=== PATIENT | female | born 1995 | race Caucasian/White ===

== ENCOUNTER 2019-08-15 23:02 | Emergency (ER) | payer OTHER, SELFPAY ==
--- OUTSIDE RECORDS SUMMARY | 2019-08-15 23:04 | XMS REPORT | Summary of Care ---
:1995 Author Organization [facility] - [facility] Address [address] [place] [id number] Care Team Providers Name Role Phone Pcp, Patient Does Not Have A Primary Care Provider Reason for Visit Reason Comments ROUTINE VISIT Diabetes Auth/Cert Status Reason Specialty Diagnoses / Procedures Referred By Contact Referred To Contact Phlebotomy Diagnoses Supervision of high risk in first trimester Adc Pob Lab Draw Procedures [facility] Professional Office [address] , [address] [place] [address] Encounter Details Date Type Department Care Team Description 08/03/2019 Routine [facility] Women's PérezFarnaz MD Supervision of high risk in first trimester (Primary Dx); Visit Healthcare- [address] [place] [address] Type 1 diabetes mellitus without complication [place] [address] [place] [address] [address] [place], [place] [phone] Allergies No Known Allergiesdocumented as of this encounter (statuses as of 08/05/2019) Medications Medication Sig Dispensed Refills Start Date End Date Status INSULIN ASPART inject 0 Active (NOVOLOG SC) under the skin. Sliding scale Insulin Glargine inject 35 0 Active (LANTUS SOLOSTAR) Units under 100 unit/mL (3 mL) the skin injection daily. furosemide 20 mg Take 20 mg 0 Discontinued tablet by mouth as 0 (Patient needed. Reported) METRONIDAZOLE ORAL Take by 0 Discontinued mouth. 0 (Patient Reported) documented as of this encounter (statuses as of 08/05/2019) Active Problems Problem Noted Date Supervision of high risk in first trimester 07/29/2019 12 weeks gestation of 07/29/2019 Type 1 diabetes mellitus without complication 01/19/2017 LFTs abnormal 01/19/2017 Estimated Date of Delivery Comments Yes 02/10/2020 Based on Ultrasound documented as of this encounter (statuses as of 08/05/2019) Immunizations Name Administration Dates Next Due Influenza Virus Vaccine 04/29/2019 documented as of this encounter Social History Tobacco Use Types Packs/Day Years Used Date Never Smoker Smokeless Tobacco: Never Used Alcohol Use Drinks/Week oz/Week Comments Not Currently Estimated Date of Delivery Comments Yes 02/10/2020 Based on Ultrasound Sex Assigned at Date Recorded Not on file Job Start Date Occupation Industry Not on file Not on file Not on file Travel History Travel Start Travel End No recent travel history available. documented as of this encounter Last Filed Vital Signs Vital Sign Reading Time Taken Comments Blood Pressure 121/75 08/03/2019 10:14 AM HISTOTECHNICIAN Pulse 90 08/03/2019 10:14 AM HISTOTECHNICIAN Temperature 36.6 C (97.9 F) 08/03/2019 10:14 AM HISTOTECHNICIAN Respiratory Rate 18 08/03/2019 10:14 AM HISTOTECHNICIAN Oxygen Saturation - - Inhaled Oxygen Concentration - - Weight 73.2 kg (161 lb 6.4 oz) 08/03/2019 10:14 AM HISTOTECHNICIAN Height 175.3 cm (5' 9") 08/03/2019 10:14 AM HISTOTECHNICIAN Body Mass Index 23.83 08/03/2019 10:14 AM HISTOTECHNICIAN documented in this encounter Patient Instructions Patient InstructionsBebeto Carroll - 08/03/2019 9:45 AM CST Video [employer] Common Changes During Certain changes and discomforts occur during and are perfectly normal. Some of these changes include backache, frequent urination, and constipation. This video describes typical changes, how to safely relieve your discomfort, and what circumstances require a visit to your doctor. To watch the video: Scan the QR code Using your mobile device, scan the following code: OR Go to the website: www.[employer] Enter the prescription code: KWX The [employer]. [address] [place], [place] [id number]. All rights reserved. This information is not intended as a substitute for professional medical care. Always follow your healthcare professional's instructions. Comfort Tips During Talk with yourhealthcare provider before using pain-relieving medicine at any time during your . First trimester tips Nausea Get up slowly. Eat a few unsalted crackers before you get out of bed. Avoid smells that bother you. Eat smallbland low fat, light high-protein meals at frequent intervals. Sip on water, weaktea, or clear soft drinks, like haley mahendra.Eat ice chips. Fatigue Take catnaps when you can. Get regular exercise. Accept help from others. Practice good sleep habits, like going to bed and getting up at the same time each day. Use your bed only for sleep and sex. Mood swings Talk about your feelings with others, including other mothers. Limit sugar, chocolate, and caffeine. Eat a healthy diet. Dont skip meals. Get regular exercise. Headaches Get fresh air and exercise. Relax and get enough rest. Check with your healthcare provider before taking any pain medicines. Second trimester tips Here are some suggestions to help you cope: To limit ankle swelling, sit with your feet raised or wear support hose. If you have pain in your groin and stomach(round ligament pain), avoid sudden twisting movements. For leg cramps, flexing your foot often brings immediate relief. You also may try massaging your calf in long, downward strokes, or stretching your legs before going to bed. Get enough exercise and wear shoes with flexible soles. Third trimester tips Reducing heartburn Eat small, light meals throughout the day rather than 3 large ones. Sleep with your upper body raised 6 inches. Dont lie down until 2 hours after you eat. Don't eat greasy, fried, or spicy foods. Avoid citrus fruits and juices. Treating constipation Eat foods high in fiber (whole-grain foods, fresh fruit and vegetables). Drink plenty of water. Get regular exercise. Discuss other medicines (like docusate and psyllium) with your healthcare provider. Taking care of your breasts Avoid using harsh soaps or alcohol, which can cause excessive dryness. Wear nursing bras. They provide more support than regular bras and can be used after ifyou breastfeed. Getting a good nights sleep Take a warm shower before bed. Sleep on a firm mattress. Lie on your side with 1 leg crossed over the other. Use pillows to support arms, legs, and belly. hereO last reviewed this educational content on 03/29/201719999617-3946 The [employer], [employer]. [address] [place] [address], [place] [address]. All rights reserved. This information is not intended as a substitute for professional medical care. Always follow your healthcare professional's instructions. Adapting to : Second Trimester Keep up the healthy habits you started in your first trimester. You might be a little more tired than normal. So plan your day wisely. Look at the tips below and choose the ones that suit your lifestyle. If you have any questions, check with your healthcare provider. If you work If you can, adjust your work with your employer to fit your needs. Try these tips: If you stand for long periods, find ways to do some tasks while sitting. Also , try to stand with 1 foot resting on a low stool or ledge. Shift your weight from foot to foot often. Wear low-heeled shoes. If you sit, keep your knees level with your hips. Rest your feet on a firm surface. Sit tall withsupport for your low back. If you work long hours, ask about adjusting your schedule. Try taking shorter breaks more often. When you travel The second trimester may be the best time for any travel. Talk to your healthcare provider about anyspecial plans you may need to make. Always: Wear a seat belt. Fasten the lap part under your belly. Wear the shoulder part also. Take breaks often during long trips by car or plane. Move around to stretch your legs. Drink plenty of fluids on flights. The air in plane cabins is very dry. Avoid hot climates or high altitudes if you are not used to them. Avoid places where the food and water might make you sick. Make sure you are up-to-date on all immunizations, including the flu vaccine. This is especially important when traveling overseas. Taking time to relax Find time to rest and relax at work or at home: Take short time-outs daily. Do relaxation exercises. Breathe deeply during stressful times. Try not to take on too much. Plan tasks for times when you have the most energy. Take naps when you can. Or just sit and relax. After week 16, avoid lying on your back for more than a few minutes. Instead , lie on your side. Switch sides often. Continuing as lovers Unless your healthcare provider tells you otherwise, there is no reason to stop having sex now. Blood supply increases to the pelvic area in the second trimester. Because of this, sex might be more enjoyable. Try different positions and see whats best. Also, talk to your partner about any changes in desire. Spotting may happen after sex. Be sure to let your healthcare provider know if there is heavy bleeding. Keeping your environment safe You can still clean house and use scented products. Just take some simple precautions: Wear gloves when using cleaning fluids. Open windows to let in fresh air. Use a fan if you paint. Avoid secondhand smoke. Dont breathe fumes from nail french, hair spray, cleansers, or other chemicals. hereO last reviewed this educational content on 06/29/201719997306-1017 The [employer]. [address] [place] [address]. All rights reserved. This information is not intended as a substitute for professional medical care. Always follow your healthcare professional's instructions. : Your Second Trimester Changes Each day, you and your baby are changing and growing together. Heres a quick look at whats happening to both of you. How you are changing Even when you dont notice it, your body is adapting to meet the needs of your growing baby. The changes in your body might also affect your moods. Your body Your uterus expands as baby grows. As the weeks go by, you will feel more pressure on your bladder, stomach, and other organs. You may notice some skin color changes on your forehead, nose, or cheeks. Freckles may darken, and moles may grow. You may notice a darker line on your abdomen between your belly button and pubic bone in the midline. Your moods The second trimester is often easier than the first. Still, be prepared for mood swings. These are due to the increase in hormones (chemicals that affect the way organs work) produced by your body. These mood swings are a normal part of . How your baby is growing Month 4 Babys heartbeat may be heard with a Doppler (hand-held ultrasound device) by 9 to 10 weeks.Eyebrows, eyelashes, and fingernails begin to form. Month 5 You may feel your baby move. After a growth spurt, your baby nears 10 inches. Month 6 Babys fingerprints have formed. Your baby weighs about 1to 2 pounds and is about 12 inches long. hereO last reviewed this educational content on 06/29/201719997454-4578 The [employer]. [address] [place] [address]. All rights reserved. This information is not intended as a substitute for professional medical care. Always follow your healthcare professional's instructions. OTECHNICIAN documented in this encounter Progress Notes Farnaz Pérez MD - 08/03/2019 9:45 AM CST Chief complaint: Chief Complaint Patient presents with ROUTINE VISIT Diabetes HPI Denies vaginal bleeding or cramping. Histories OB History Para Term AB Living 1 SAB TAB Ectopic Multiple Live Births # Outcome Date GA Lbr Harinder/2nd Weight Sex Delivery Anes PTL Lv 1 Current Past Medical History: Diagnosis Date Diabetes mellitus type 1 diagnosed at 9 years old Elevated LFTs Family History Problem Relation Age of Onset No Significant Medical Problems Mother Family Status Relation Name Status Fa Other unknown Mo Alive History reviewed. No pertinent surgical history. Social History Socioeconomic History Marital status: Single Spouse name: w Number of children: Not on file Years of education: Not on file Highest education level: Not on file Occupational History Not on file Social Needs Financial resource strain: Not on file Food insecurity: Worry: Not on file Inability: Not on file Transportation needs: Medical: Not on file Non-medical: Not on file Tobacco Use Smoking status: Never Smoker Smokeless tobacco: Never Used Substance and Sexual Activity Alcohol use: Not Currently Drug use: Never Sexual activity: Yes Partners: Male control/protection: None Lifestyle Physical activity: Days per week: Not on file Minutes per session: Not on file Stress: Not on file Relationships Social connections: Talks on phone: Not on file Gets together: Not on file Attends congregational service: Not on file Active member of club or organization: Not on file Attends meetings of clubs or organizations: Not on file Relationship status: Not on file Intimate partner violence: Fear of current or ex partner: Not on file Emotionally abused: Not on file Physically abused: Not on file Forced sexual activity: Not on file Other Topics Concern Not on file Social History Narrative Denies physical and sexual abuse. Social History Substance and Sexual Activity Sexual Activity Yes Partners: Male control/protection: None Labs No new labs Radiology No new radiology. Allergies Sri has No Known Allergies. Medications Sri has a current medication list which includes the following prescription (s): insulin aspart and insulin glargine. Review of Systems Constitutional: Negative for chills, fatigue and fever. HENT: Negative for congestion, rhinorrhea, sneezing and sore throat. Eyes: Negative for photophobia and visual disturbance. Respiratory: Negative for cough, chest tightness, shortness of breath and wheezing. Cardiovascular: Negative for chest pain and palpitations. Gastrointestinal: Negative for abdominal distention, abdominal pain, constipation, diarrhea, nausea and vomiting. Genitourinary: Negative for dysuria, urgency, frequency, vaginal bleeding and vaginal discharge. Skin: Negative for rash. Neurological: Negative for syncope and headaches. Hematological: Does not bruise/bleed easily. BP 121/75 (BP Location: Left arm, Patient Position: Sitting, BP CUFF SIZE: Adult Medium) | Pulse 90 | Temp 36.6 C (97.9 F) | Resp 18 | Ht 5' 9" ( 1.753 m) | Wt 161 lb 6.4 oz (73.2 kg) | LMP 03/25/2019 | BMI 23.83 kg/m Pregravid BMI: 22.7 Physical Exam Vitals reviewed. Constitutional: She is oriented to person, place, and time. Her body habitus is normal. Cardiovascular: Regular rate and rhythm. Pulmonary/Chest: Normal inspiratory effort. Abdominal: Abdomen is soft. No tenderness present. No hernia palpated or inspected. Neuro/Psychiatric: She has a normal mood and affect. She is oriented to person, place, and time. Skin: Skin normal. No rash present. Assessment/Plan See OB Summary Return to clinic in 3 weeks. Reviewed patient instructions and provided printed copy. Activity restrictions: As tolerated at 13w0d This visit did not involve counseling and coordination that comprised more than 50% of the visit time. Farnaz Pérez MD 08/05/2019 9:40 AM documented in this encounter Plan of Treatment Date Type Specialty Care Team Description 08/08/2019 Office Visit Endocrinology Diabetes & Maryellen Marie, Metabolism [address] [facility] [address] [place] [address] [phone] 08/17/2019 Office Visit Endocrinology Diabetes & Edward Erwin MD Metabolism [address] [place] [address] [phone] 08/17/2019 Routine Obstetrics & Gynecology Farnaz Pérez MD Visit [address] [place] [address] [address] [place], [place] [id number] Health Maintenance Due Date Last Done Comments HgA1C 12/05/1995 VARICELLA VACCINES (1 of 2 - 12/05/1995 2-dose childhood series) PNEUMOCOCCAL 0-64 YEARS COMBINED 2000 SERIES (1 of 1 - PPSV23) EYE EXAM 2004 LDL-C 2004 URINE MICROALBUMIN 2004 DTaP,Tdap,and Td Vaccines (1 - 2005 Tdap) HPV VACCINES (1 - Female 2-dose 2005 series) CHLAMYDIA SCREENING 2010 FOOT EXAM 2012 PAP SMEAR 12/05/2015 CREATININE (SERUM) 01/19/2018 01/19/2017 INFLUENZA VACCINE Completed 04/29/2019, 04/14/2011, 05/13/2010, Additional history exists documented as of this encounter Procedures Procedure Name Priority Date/Time Associated Diagnosis Comments POCT URINALYSIS W/O Routine 08/03/2019 Supervision of high Results for this SPECIFIC GRAVITY risk in first procedure are in the trimester results section. documented in this encounter Results POCT URINALYSIS W/O SPECIFIC GRAVITY (08/03/2019) POCT PH U n/a 5 - 8 mg/dl POCT U LEUK EST n/a Negative - Negative POCT U NIT n/a Negative - Negative POCT U PROT neg Negative - Negative POCT U GLU neg Negative - Negative POCT U KETONE n/a Negative - Negative POCT U BLD n/a Negative - Negative Specimen Urine - URINE, CLEAN CATCH documented in this encounter Visit Diagnoses Diagnosis Supervision of high risk in first trimester - Primary Unspecified high-risk Type 1 diabetes mellitus without complication Type I (juvenile type) diabetes mellitus without mention of complication, not stated as uncontrolled documented in this encounter Insurance Payer Benefit Plan / Subscriber ID Effective Dates Phone Address Type Group [facility] xxxxxxxxx 2019-Present Medicaid HEALTH PLAN - HEALTH MANAGED MEDICAID documented as of this encounter
--- OUTSIDE RECORDS SUMMARY | 2019-08-15 23:04 | XMS REPORT | Summary of Care ---
:1995 Author Organization [facility] - Health Address [address] [place] [address] Care Team Providers Name Role Phone Pcp, Patient Does Not Have A Primary Care Provider Encounter Details Date Type Department Care Team Description 07/27/2019 Orders Only [facility] Doctor Unassigned, No [address] [facility] [place] [address] [address] [place] [address] Allergies No Known Allergiesdocumented as of this encounter (statuses as of 07/27/2019) Medications Medication Sig Dispensed Refills Start Date End Date Status INSULIN ASPART inject under the 0 Active (NOVOLOG SC) skin. Sliding scale Insulin Glargine inject 35 Units 0 Active (LANTUS SOLOSTAR) 100 under the skin unit/mL (3 mL) daily. injection furosemide 20 mg Take 20 mg by 0 Active tablet mouth as needed. documented as of this encounter (statuses as of 07/27/2019) Active Problems Problem Noted Date Type 1 diabetes mellitus without complication 01/19/2017 LFTs abnormal 01/19/2017 documented as of this encounter (statuses as of 07/27/2019) Social History Tobacco Use Types Packs/Day Years Used Date Never Smoker Sex Assigned at Date Recorded Not on file Job Start Date Occupation Industry Not on file Not on file Not on file Travel History Travel Start Travel End No recent travel history available. documented as of this encounter Last Filed Vital Signs Not on filedocumented in this encounter Plan of Treatment Date Type Specialty Care Team Description 07/27/2019 Initial Obstetrics & Pérez, Farnaz Hall MD Visit Gynecology [address] [place] [address] 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
--- OUTSIDE RECORDS SUMMARY | 2019-08-15 23:04 | XMS REPORT | Summary of Care ---
:1995 Author Organization [facility] - [facility] Address [address] [place] [address] Care Team Providers Name Role Phone Pcp, Patient Does Not Have A Primary Care Provider Encounter Details Date Type Department Care Team Description 08/02/2019 Letter (Out) [facility] Women's PérezFarnaz MD [address] [facility], Suite [facility] [address] [place] [address] [place] [address] Allergies No Known Allergiesdocumented as of this encounter (statuses as of 08/02/2019) Medications Medication Sig Dispensed Refills Start Date End Date Status INSULIN ASPART (NOVOLOG inject under the 0 Active SC) skin. Sliding scale Insulin Glargine inject 35 Units 0 Active (LANTUS SOLOSTAR) 100 under the skin unit/mL (3 mL) daily. injection furosemide 20 mg tablet Take 20 mg by 0 Active mouth as needed. METRONIDAZOLE ORAL Take by mouth. 0 Active documented as of this encounter (statuses as of 08/02/2019) Active Problems Problem Noted Date Supervision of high risk in first trimester 07/29/2019 12 weeks gestation of 07/29/2019 Type 1 diabetes mellitus without complication 01/19/2017 LFTs abnormal 01/19/2017 Estimated Date of Delivery Comments Yes 02/10/2020 Based on Ultrasound documented as of this encounter (statuses as of 08/02/2019) Immunizations Name Administration Dates Next Due Influenza [...] Treatment Date Type Specialty Care Team Description 08/03/2019 Routine Obstetrics & Pérez, Farnaz Hall MD Visit Gynecology [address] [place] [address] [place] [address] [phone] Health Maintenance Due Date Last Done Comments [...] history exists documented as of this encounter Results Not on filedocumented in this encounter Insurance Payer Benefit Plan / Subscriber ID Effective Dates Phone Address Type Group [facility] xxxxxxxxx 2019-Present Medicaid HEALTH PLAN - HEALTH MANAGED MEDICAID documented as of this encounter
--- OUTSIDE RECORDS SUMMARY | 2019-08-15 23:05 | XMS REPORT | Summary of Care ---
:1995 Author Organization [facility] Address [address] [place] [address] Care Team Providers Name Role Phone Pcp, Patient Does Not Have A Primary Care Provider Encounter Details Date Type Department Care Team Description 08/15/[address] [facility] Edward Erwin MD Hypoglycemia (Primary Msg Endocrinology- [address]x) [facility] Professional Office [address] [phone] Dr. Kurtz [address] [place], [place] (Fax) [phone] Allergies No Known Allergiesdocumented as of this encounter (statuses as of 08/15/2019) Medications Medication Sig Dispensed Refills Start Date End Date Status INSULIN ASPART inject under the 0 Active (NOVOLOG SC) skin. Sliding scale Insulin Glargine inject 35 Units 0 Active (LANTUS SOLOSTAR) under the skin 100 unit/mL (3 mL) daily. injection glucagon (GLUCAGON Inject 1 mg 1 mg 1 08/15/2019 Active EMERGENCY KIT, intravenously as HUMAN,) 1 mg needed injectionIndications (hypoglycemia). : Hypoglycemia documented as of this encounter (statuses as of 08/15/2019) Active Problems Problem Noted Date Supervision of high risk in first trimester 07/29/2019 12 weeks gestation of 07/29/2019 Type 1 diabetes mellitus without complication 01/19/2017 LFTs abnormal 01/19/2017 Estimated Date of Delivery Comments Yes 02/10/2020 Based on Ultrasound documented as of this encounter (statuses as of 08/15/2019) Immunizations Name Administration Dates Next Due HEPATITIS A 11/01/2008 HPV 01/25/2010, 11/01/2008 Influenza Virus Vaccine 04/29/2019, 04/14/2011, 05/13/2010, 06/15/2009, 03/14/2009, 04/23/2007 Meningococcal Polysaccharide (groups 12/10/2012, 11/01/2008 A, C, Y and W-135) conjugate vaccine (MCV4P) Tdap 11/01/2008 Varicella (varivax)(chicken pox) 11/01/2008 documented as of this encounter Social History [...] Treatment Date Type Specialty Care Team Description 08/17/2019 Office Visit Endocrinology Diabetes & Edward Erwin MD Metabolism [address] [place] [address] [phone] 08/22/2019 Routine Obstetrics & Gynecology Farnaz Pérez MD Visit [address] [place] [address] DR[address] Evans [address] [place] [address] [phone] Health Maintenance Due Date Last Done Comments HgA1C 12/05/1995 PNEUMOCOCCAL 0-64 YEARS COMBINED 2000 SERIES (1 of 1 - PPSV23) EYE EXAM 2004 LDL-C 2004 URINE MICROALBUMIN 2004 VARICELLA VACCINES (2 of 2 - 13+ 11/29/2008 11/01/2008 2-dose series) CHLAMYDIA SCREENING 2010 FOOT EXAM 2012 PAP SMEAR 12/05/2015 CREATININE (SERUM) 01/19/2018 01/19/2017 DTaP,Tdap,and Td Vaccines (2 - Td) 11/01/2018 11/01/2008 HPV VACCINES Completed 01/25/2010, 11/01/2008 INFLUENZA VACCINE Completed 04/29/2019, 04/14/2011, 05/13/2010, Additional history exists documented as of this encounter Results Not on filedocumented in this encounter Visit Diagnoses Diagnosis Hypoglycemia - Primary Hypoglycemia, unspecified documented in this encounter Insurance Payer Benefit Plan / Subscriber ID Effective Dates Phone Address Type Group [facility] xxxxxxxxx 2019-Present Medicaid HEALTH PLAN - HEALTH MANAGED MEDICAID documented as of this encounter
--- OUTSIDE RECORDS SUMMARY | 2019-08-15 23:05 | XMS REPORT | Summary of Care ---
:1995 Author Organization [facility] Address [address] [place] [address] Care Team Providers Name Role Phone Pcp, Patient Does Not Have A Primary Care Provider Encounter Details Date Type Department Care Team Description 08/15/2019 Patient Secure Msg [facility] Edward Erwin MD Endocrinology- [address] Professional [address] [address] [address] [place] [address] [phone] Allergies No Known Allergiesdocumented as of this encounter (statuses as of 08/15/2019) Medications Medication Sig Dispensed Refills Start Date End Date Status INSULIN ASPART inject under the 0 Active (NOVOLOG SC) skin. Sliding scale Insulin Glargine inject 35 Units 0 Active (LANTUS SOLOSTAR) 100 under the skin unit/mL (3 mL) daily. injection documented as of this encounter (statuses as [...] Endocrinology Diabetes & Edward Erwin MD Metabolism [facility] [place] [address] [phone] 08/22/2019 Routine Obstetrics & Gynecology Farnaz Pérez MD Visit [address] [place] [address] [place] [address] [phone] Health Maintenance Due Date Last Done Comments [...] ID Effective Dates Phone Address Type Group [place] [facility] [place] [facility] xxxxxxxxx 2019-Present Medicaid HEALTH PLAN - HEALTH MANAGED MEDICAID documented as of this encounter
--- OUTSIDE RECORDS SUMMARY | 2019-08-15 23:05 | XMS REPORT | Summary of Care ---
:1995 Author Organization [facility] Address [address] [place] [address] Care Team Providers Name Role Phone Pcp, Patient Does Not Have A Primary Care Provider Encounter Details Date Type Department Care Team Description 08/15/2019 Patient Secure Msg [facility] Edward Erwin MD Endocrinology- [address] Professional [address] [address] [address] [place] [address] [phone] Allergies No Known Allergiesdocumented as of this [...] Endocrinology Diabetes & Edward Erwin MD Metabolism [facility] [place] [address] [phone] 08/22/2019 Routine Obstetrics & Gynecology Farnaz Pérez MD Visit [address] [place] [address] [place] [address] [phone] Health Maintenance Due Date Last Done Comments [...] ID Effective Dates Phone Address Type Group [place] [facility] [place] [facility] xxxxxxxxx 2019-Present Medicaid HEALTH PLAN - HEALTH MANAGED MEDICAID documented as of this encounter
--- OUTSIDE RECORDS SUMMARY | 2019-08-15 23:05 | XMS REPORT ---
:1995 Author Organization [facility] Address [address] [place] [address] Dr. Martinez [address] [place] [address] Care Team Providers Name Role Phone Unavailable Unavailable Unavailable Problems This patient has no known problems. Allergies, Adverse Reactions, Alerts This patient has no known allergies or adverse reactions. Medications This patient has no known medications.
[2019-08-15] MEDS ORDERED: D50W 25 GM/50 ML SYRINGE/VIAL IV ONE (23:49)
[2019-08-15 23:52] LABS: Urine Blood NEGATIVE (NEG); Urine Glucose NEGATIVE (NEG); Urine Protein NEGATIVE (NEG); Urine Specific Gravity <1.005 (1.005-1.030)
[2019-08-15 23:53] LABS: Absolute Lymphocytes (CBC) 1.8 K/uL (0.7-4.9); Basophils % 0.4 % (0-1.3); Hematocrit 39.9 % (36.0-45.0); Lymphocytes % 13.9 % (15.3-44.8); MPV 7.8 fL (7.6-11.3); RBC Red Blood Cell Count 4.68 M/uL (3.86-4.86)
[2019-08-16 00:02] LABS: Urine Bacteria <20 /HPF (<20); Urine Culture Reflex Order NOT NEEDED; Urine RBC <5 /HPF (NONE SEEN)
[2019-08-16 00:12] LABS: ALT/SGPT 21 U/L (12-78); AST/SGOT 28 U/L (15-37); Albumin 3.3 g/dL (3.4-5.0); Alkaline Phosphatase 54 U/L (45-117); BUN Blood Urea Nitrogen 11 mg/dL (7-18); Bicarbonate 25 mmol/L (21-32); Bilirubin Total 0.3 mg/dL (0.2-1.0); Glucose Level 60 mg/dL (74-106); Potassium 3.5 mmol/L (3.5-5.1); Protein, Total 7.3 g/dL (6.4-8.2); Sodium Level 139 mmol/L (136-145)
[2019-08-16] MEDS ORDERED: CEFTRIAXONE/SWI 1gm 1 GM/10 ML SYR ONE (01:39)
--- NOTE | 2019-08-16 01:55 | ER ---
Nurse's Notes [facility] Name: Sri Rosales Age: 23 yrs Sex: Female : 1995 Arrival Date: 08/15/2019 Time: 23:08 Bed 15 Private MD: Diagnosis: Hypoglycemia, unspecified;Urinary tract infection, site not specified Presentation: 08/15 23:08 Presenting complaint: EMS states: PATIENT IS TYPE 1 DM. AND SHE IS ALSO 14 WEEKS rv . TODAY HER SUGAR DROPPED TO 30s. WE GAVE HER 150ML OF D10. WENT UP AND DOWN AGAIN. GAVE HER 1 GLUCOSE. LATEST BLOOD SUGAR IS 89. INITIALLY SHE IS CONFUSED, SHE FELT BETTER NOW. Transition of care: patient was not received from another setting of care. Onset of symptoms was August 15, 2019 at 22:00. Risk Assessment: Do you want to hurt yourself or someone else? Patient reports no desire to harm self or others. Initial Sepsis Screen: Does the patient meet any 2 criteria? No. Patient's initial sepsis screen is negative. Does the patient have a suspected source of infection? No. Patient's initial sepsis screen is negative. Care prior to arrival: None. Medication(s) given: GLUCOSE. 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 - Coronavirus screen:: The patient HAS traveled to [place] in the past 14 days. The patient does NOT have a fever and/or cough. Proceed with normal triage procedures. The patient has NOT had contact with known/suspected case of Coronavirus? Proceed with normal triage procedures. - Social history:: Smoking status: Patient denies any tobacco usage or history of. - Ebola Screening: : No symptoms or risks identified at this time. Screenin:14 Abuse screen: Denies threats or abuse. Denies injuries from another. Nutritional rv screening: No deficits noted. Tuberculosis screening: No symptoms or risk factors identified. Fall Risk None identified. Assessment: 23:14 General: Appears in no apparent distress. comfortable, Behavior is calm, cooperative. rv Pain: Denies pain. Neuro: Level of Consciousness is awake, alert, obeys commands, Oriented to person, place, time, situation. Cardiovascular: Patient's skin is warm and dry. Respiratory: Airway is patent. GI: No signs and/or symptoms were reported involving the gastrointestinal system. : No signs and/or symptoms were reported regarding the genitourinary system. EENT: No signs and/or symptoms were reported regarding the EENT system. Derm: Skin is intact. 08/16 02:05 Reassessment: Patient appears in no apparent distress at this time. Patient and/or rv family updated on plan of care and expected duration. Pain level reassessed. Patient is alert, oriented x 3, equal unlabored respirations, skin warm/dry/pink. patient was given dextrose 50% and encouraged to eat. after monitoring sugar every 30 minutes for three times, sugar is stable and not dropping down. advised to manage her sugar and ff up with her electromatic typist. Vital Signs: 08/15 23:12 BP 131 / 91; Pulse 94; Resp 19; Temp 98; Pulse Ox 100% ; Weight 72.57 kg; Height 5 ft. rv 9 in. (175.26 cm); Pain 0/10; 08/16 00:04 BP 124 / 78; Pulse 91; Resp 18; Pulse Ox 100% on R/A; rv 01:00 BP 118 / 75; Pulse 89; Resp 17; Pulse Ox 100% on R/A; rv 02:00 BP 117 / 78; Pulse 92; Resp 18; Temp 98.2(O); Pulse Ox 100% ; rv 08/15 23:12 Body Mass Index 23.63 (72.57 kg, 175.26 cm) rv Vitals: 00:04 Heart Tones 160s. rv ED Course: 08/15 23:08 Patient arrived in ED. rv 23:12 Triage completed. rv 23:14 Arm band placed on Patient placed in the treatment room, on a stretcher, Patient rv notified of wait time. 23:15 Patient has correct armband on for positive identification. Pulse ox on. NIBP on. rv 23:18 Jacoby, Norman, RN is Primary Nurse. rv 23:18 Inserted saline lock: 20 gauge in left antecubital area, using aseptic technique. Blood rv collected. 23:20 Spencer Amato NP is PHCP. pm1 23:20 Cosme Zamora MD is Attending Physician. pm1 02 02:04 No provider procedures requiring assistance completed. IV discontinued, intact, rv bleeding controlled, No redness/swelling at site. Pressure dressing applied. Administered Medications: 08/15 23:51 Drug: D50W 50 ml Route: IVP; Site: left antecubital; rv 02 02:05 Follow up: Response: No adverse reaction; Blood sugar is elevated rv 01:38 Drug: Rocephin 1 grams Route: IV; Rate: calculated rate; Site: left antecubital; rv 02:05 Follow up: Response: No adverse reaction; IV Status: Completed infusion rv Outcome: 01:55 Discharge ordered by MD. pm1 02:07 Discharged to home ambulatory, with family. rv 02:07 Condition: good 02:07 Discharge instructions given to patient, Instructed on discharge instructions, follow up and referral plans. medication usage, Demonstrated understanding of instructions, follow-up care, medications, Prescriptions given X 1. 02:07 Patient left the ED. rv Signatures: Spencer Amato NP BIOLOGY INTERN pm1 Norman Dozier RN RN rv Corrections: (The following items were deleted from the chart) 08/15 23:18 23:16 Inserted saline lock: 20 gauge in right antecubital area, using aseptic rv technique. rv 23:51 23:18 Maintain EMS IV. Dressing intact. Good blood return noted. Site clean \T\ dry. rv Gauge \T\ site: 20G RIGHT AC. rv
--- NOTE | 2019-08-16 01:56 | EDPHYS ---
Physician Documentation [facility] Name: Sri Rosales Age: 23 yrs Sex: Female : 1995 Arrival Date: 08/15/2019 Time: 23:08 Bed 15 Private MD: ED Physician Cosme Zamora HPI: 08/16 01:36 This 23 yrs old Female presents to ER via EMS with complaints of Hypoglycemia.pm1 01:36 The patient or guardian reports hypoglycemia, that was potentially precipitated by pm1 Insulin at 1600 for glucose in the 300 range. Onset: The symptoms/episode began/occurred just prior to arrival. Associated signs and symptoms: Pertinent negatives: nausea, seizure activity, vomiting. Current symptoms: In the emergency department the patient's symptoms have improved. The patient has experienced similar episodes in the past, a few times. Patient is 14 weeks and is type 1 diabetic. Patient is on a sliding scale for regular insulin and takes long acting before bed time. Patient has not taken her long acting today. Patient at a cracker after taking her sliding scale dose of insulin for 300 blood glucose level. 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 - Coronavirus screen:: The patient HAS traveled to [place] in the past 14 days. The patient does NOT have a fever and/or cough. Proceed with normal triage procedures. The patient has NOT had contact with known/suspected case of Coronavirus? Proceed with normal triage procedures. - Social history:: Smoking status: Patient denies any tobacco usage or history of. - Ebola Screening: : No symptoms or risks identified at this time. ROS: 08/16 02:11 Constitutional: Negative for fever, chills, and weight loss, Cardiovascular: Negative pm1 for chest pain, palpitations, and edema, Respiratory: Negative for shortness of breath, cough, wheezing, and pleuritic chest pain, Abdomen/GI: Negative for abdominal pain, nausea, vomiting, diarrhea, and constipation, Back: Negative for injury and pain, : Negative for injury, bleeding, discharge, and swelling, MS/Extremity: Negative for injury and deformity, Skin: Negative for injury, rash, and discoloration, Neuro: Negative for headache, weakness, numbness, tingling, and seizure. Exam: 02:11 Constitutional: This is a well developed, well nourished patient who is awake, alert, pm1 and in no acute distress. Head/Face: Normocephalic, atraumatic. Neck: Trachea midline, no thyromegaly or masses palpated, and no cervical lymphadenopathy. Supple, full range of motion without nuchal rigidity, or vertebral point tenderness. No Meningismus. Chest/axilla: Normal chest wall appearance and motion. Nontender with no deformity. No lesions are appreciated. Cardiovascular: Regular rate and rhythm with a normal S1 and S2. No gallops, murmurs, or rubs. Normal PMI, no JVD. No pulse deficits. Respiratory: Lungs have equal breath sounds bilaterally, clear to auscultation and percussion. No rales, rhonchi or wheezes noted. No increased work of breathing, no retractions or nasal flaring. Back: No spinal tenderness. No costovertebral tenderness. Full range of motion. Skin: Warm, dry with normal turgor. Normal color with no rashes, no lesions, and no evidence of cellulitis. 02:11 MS/ Extremity: Pulses equal, no cyanosis. Neurovascular intact. Full, normal range of motion. 02:11 Abdomen/GI: Inspection: gravid appearance, is noted, Bowel sounds: normal, Palpation: abdomen is soft and non-tender, in all quadrants. 02:11 Neuro: Orientation: is normal, Motor: is normal, moves all fours. Vital Signs: 08/15 23:12 BP 131 / 91; Pulse 94; Resp 19; Temp 98; Pulse Ox 100% ; Weight 72.57 kg; Height 5 ft. rv 9 in. (175.26 cm); Pain 0/10; 08/16 00:04 BP 124 / 78; Pulse 91; Resp 18; Pulse Ox 100% on R/A; rv 01:00 BP 118 / 75; Pulse 89; Resp 17; Pulse Ox 100% on R/A; rv 02:00 BP 117 / 78; Pulse 92; Resp 18; Temp 98.2(O); Pulse Ox 100% ; rv 08/15 23:12 Body Mass Index 23.63 (72.57 kg, 175.26 cm) rv MDM: 08/15 23:20 Patient medically screened. pm1 08/16 01:53 Data reviewed: vital signs. Data interpreted: Pulse oximetry: on room air is 100 %. pm1 Interpretation: normal. Counseling: I had a detailed discussion with the patient and/or guardian regarding: the historical points, exam findings, and any diagnostic results supporting the discharge/admit diagnosis, lab results, the need for outpatient follow up, to return to the emergency department if symptoms worsen or persist or if there are any questions or concerns that arise at home. 08/15 23:21 Order name: CBC with Diff; Complete Time: 00:30 pm1 08/15 23:21 Order name: CMP; Complete Time: 00:30 pm1 08/15 23:27 Order name: Urine Microscopic Only; Complete Time: 00:30 pm1 08/15 23:48 Order name: Urine Dipstick--Ancillary (enter results); Complete Time: 00:30 mt 08/15 23:48 Order name: Urine --Ancillary (enter results); Complete Time: 00:30 mt 08/15 23:52 Order name: Glucose, Ancillary Testing; Complete Time: 00:30 EDMS 08/15 23:21 Order name: Urine Dipstick-Ancillary (obtain specimen); Complete Time: 23:59 pm1 08/15 23:21 Order name: Diet Regular; Complete Time: 23:23 pm1 08/15 23:27 Order name: IV Saline Lock; Complete Time: 23:59 pm1 08/15 23:27 Order name: Urine Test (obtain specimen); Complete Time: 23:59 pm1 08/16 00:49 Order name: Glucose, Ancillary Testing; Complete Time: 00:56 EDMS 08/16 02:02 Order name: Glucose, Ancillary Testing; Complete Time: 02:20 EDMS 08/15 23:27 Order name: FHT's; Complete Time: 00:01 pm1 08/15 23:27 Order name: Glucose Level; Complete Time: 23:59 pm1 Administered Medications: 08/15 23:51 Drug: D50W 50 ml Route: IVP; Site: left antecubital; rv 08/16 02:05 Follow up: Response: No adverse reaction; Blood sugar is elevated rv 01:38 Drug: Rocephin 1 grams Route: IV; Rate: calculated rate; Site: left antecubital; rv 02:05 Follow up: Response: No adverse reaction; IV Status: Completed infusion rv Disposition: 08/16/19 01:55 Discharged to Home. Impression: Hypoglycemia, unspecified, Urinary tract infection, site not specified. - Condition is Stable. - Discharge Instructions: Hypoglycemia, and Urinary Tract Infection. - Prescriptions for Macrobid 100 mg Oral Capsule - take 1 capsule by ORAL route every 12 hours for 10 days; 20 capsule. - Medication Reconciliation Form, Thank You Letter, Antibiotic Education, Prescription Opioid Use form. - Follow up: Emergency Department; When: As needed; Reason: Worsening of condition. Follow up: Private Physician; When: 2 - 3 days; Reason: Recheck today's complaints, Continuance of care, Re-evaluation by your physician. - Problem is new. - Symptoms have improved. Addendum: 08/22/2019 16:31 Co-signature as Attending Physician, Cosme Zamora MD. m a2 Signatures: Dispatcher [employer] EDMS Spencer Amato, MORE MESSAGING ARCHITECT pm1 Cosme Zamora MD MD ma2 Norman Dozier RN RN rv Corrections: (The following items were deleted from the chart) 08/16 01:55 01:55 08/16/2019 01:55 Discharged to Home. Impression: Hypoglycemia, unspecified. pm1 Condition is Stable. Forms are Medication Reconciliation Form, Thank You Letter, Antibiotic Education, Prescription Opioid Use. Follow up: Emergency Department; When: As needed; Reason: Worsening of condition. Follow up: Private Physician; When: 2 - 3 days; Reason: Recheck today's complaints, Continuance of care, Re-evaluation by your physician. Problem is new. Symptoms have improved. pm1 02:07 01:55 08/16/2019 01:55 Discharged to Home. Impression: Hypoglycemia, unspecified; rv Urinary tract infection, site not specified. Condition is Stable. Forms are Medication Reconciliation Form, Thank You Letter, Antibiotic Education, Prescription Opioid Use. Follow up: Emergency Department; When: As needed; Reason: Worsening of condition. Follow up: Private Physician; When: 2 - 3 days; Reason: Recheck today's complaints, Continuance of care, Re-evaluation by your physician. Problem is new. Symptoms have improved. pm1
[2019-08-16 03:13] VITALS: O2SAT 100
[2019-08-16 03:16] VITALS: BP 117/78; TEMP 98.2
== END 2019-08-16 02:07 | disposition home or self-care (01) ==
LOC: ER 23:02
DX: O24.911 Unspecified diabetes mellitus in pregnancy, first trimester (principal); O23.41 Unspecified infection of urinary tract in pregnancy, first trimester; Z3A.14 14 weeks gestation of pregnancy; Z79.4 Long term (current) use of insulin
CPT/HCPCS: 96365; 85025; 36415; 81025; 82947 ×3; 80053; 96375; 99284; J0696; 81003; 81015

== ENCOUNTER 2019-11-25 04:38 | Emergency (ER) | payer OTHER ==
--- OUTSIDE RECORDS SUMMARY | 2019-11-25 04:41 | XMS REPORT | Summary of Care ---
:1995 Author Organization [facility] Address [address] [place] [address] Care Team Providers Name Role Phone Pcp, Patient Does Not Have A Primary Care Provider +[id number] 0-0000 Encounter Details Date Type Department Care Team Description 08/29/2019 [facility] [address] [facility] [address] [place] [address] [place] [address] [phone] Allergies No Known Allergiesdocumented as of this encounter (statuses as of 08/30/2019) Medications Medication Sig Dispensed Refills Start Date End Date Status glucagon (GLUCAGON Inject 1 mg 1 mg 1 08/15/2019 Active EMERGENCY KIT, intravenously as HUMAN,) 1 mg needed injectionIndications (hypoglycemia). : Hypoglycemia Insulin Glargine inject 32 Units 0 08/17/2019 Active (LANTUS SOLOSTAR under the skin U-100 INSULIN) 100 daily. unit/mL (3 mL) injection insulin aspart U-100 Use via sliding 36 mL 1 08/24/2019 Active (NOVOLOG FLEXPEN scale TIDAC up to U-100 INSULIN) 100 max dose of 40 units unit/mL (3 mL) daily injectionIndications : Type 1 diabetes mellitus affecting in second trimester, antepartum documented as of this encounter (statuses as of 08/30/2019) Active Problems Problem Noted Date Supervision of high risk in second trimester 07/29/2019 15 weeks gestation of 07/29/2019 Type 1 diabetes mellitus with microalbuminuria 017 LFTs abnormal 01/19/2017 Estimated Date of Delivery Comments Yes 02/10/2020 Based on Ultrasound documented as of this encounter (statuses as of 08/30/2019) Immunizations Name Administration Dates Next Due HEPATITIS [...] Treatment Date Type Specialty Care Team Description 09/14/2019 Office Visit Endocrinology Diabetes Amauri Erwin MD & Metabolism [address] [place] [address] [phone] 09/21/2019 Routine Obstetrics & Gynecology Shelbie Pérez MD Visit [address] [place] [address] DR. Garcia [place], [place] [address] [phone] 09/21/2019 Brush Maker Machine Visit Maternal Medicine Health Maintenance Due Date Last Done Comments PNEUMOCOCCAL 0-64 YEARS COMBINED 2000 SERIES (1 of 1 - PPSV23) EYE EXAM 2004 VARICELLA VACCINES (2 of 2 - 13+ 11/29/2008 11/01/2008 2-dose series) CHLAMYDIA SCREENING 2010 PAP SMEAR 12/05/2015 DTaP,Tdap,and Td Vaccines (2 - Td) 11/01/2018 11/01/2008 HgA1C 02/15/2020 08/17/2019, 07/27/2019 LDL-C 04/29/2020 04/29/2019 URINE MICROALBUMIN 05/10/2020 05/10/2019 FOOT EXAM 08/03/2020 08/03/2019, 08/03/2019 CREATININE (SERUM) 08/17/2020 08/17/2019, 04/29/2019, 01/19/2017 HPV VACCINES Completed 01/25/2010, 11/01/2008 INFLUENZA VACCINE Completed 04/29/2019, 04/14/2011, 05/13/2010, Additional history exists documented as of this encounter Results Not on filedocumented in this encounter Insurance Payer Benefit Plan / Subscriber ID Effective Dates Phone Addre ss Type Group [place] [facility] [place] CH[facility]DRENS xxxxxxxxx 2019-Present Medicaid HEALTH PLAN - HEALTH MANAGED MEDICAID documented as of this encounter
--- OUTSIDE RECORDS SUMMARY | 2019-11-25 04:41 | XMS REPORT | Summary of Care ---
:1994 Author Organization [facility] Address [address] [place] [address] Care Team Providers Name Role Phone Pcp, Patient Does Not Have A Primary Care Provider +1-000-00 0-0000 Encounter Details Date Type Department Care Team Description 08/30/2019 [facility]win MD Endocrinology- [facility] 2660 [facility] Professional Office [address] [address] [address] [place] [address] [phone] Allergies No Known Allergiesdocumented as of this [...] Diabetes Amauri Erwin MD & Metabolism 2660 [place] [address] [phone] 09/21/2019 Routine Obstetrics & Gynecology Shelbie Pérez MD Visit [address] [place] [address] DR. Garcia [place], [place] [address] [phone] 09/21/2019 Title Assistant Visit Maternal Medicine Health Maintenance Due Date [...] Effective Dates Phone Addre ss Type Group [place]DR[place] CHILDRENS xxxxxxxxx 2019-Present Medicaid HEALTH PLAN - HEALTH MANAGED MEDICAID documented as of this encounter
--- OUTSIDE RECORDS SUMMARY | 2019-11-25 04:41 | XMS REPORT ---
:1994 Author Organization [facility] t Address [address] [place] [address] Care Team Providers Name Role Phone Risk Attending Clinician Unavailable Meng Dobbins Attending Clinician Brittney MONREAL Attending Clinician Guillermina Galvan MD Attending Clinician Ultrasound Attending Clinician Unavailable Guillermina Galvan MD Admitting Clinician Problems This patient has no known problems. Allergies, Adverse Reactions, Alerts This patient has no known allergies or adverse reactions. Medications This patient has no known medications. Procedures This patient has no known procedures. Encounters Start End Encounter Admission Attending Care Care Encounter Source Date/Time Date/Time Type Type Clinicians Facility Department ID 2019-11-24 2019-11-24 Routine CARLEY Yuan [id number] 15:04:40 15:46:35 Ang-Rmchp-N RETAIL COORDINATOR [id number] Visit p/High REGIONAL [id number] MATERNAL [id number] & CHILD 107 [facility] 2019-11-22 2019-11-22 Routine CARLEY Diallo [id number] 37 15:53:15 16:34:14 Roshunda R RETAIL COORDINATOR [id number] Visit REGIONAL [id number] MATERNAL [id number] & CHILD 107 [facility] 2019-11-16 2019-11-16 Telephone SVETA Lugo [id number] 00:00:00 00:00:00 [facility] [id number] [facility] [id number] 2019-11-14 2019-11-15 [facility] Sarmiento [facility] [id number] 16:38:00 17:52:00 Encounter Koffi PHELAN [id number] [facility] [id number] 2019-11-08 2019-11-15 Motor Transport Inspector Ultrasound, [facility] [id number] 15:08:04 08:49:05 Visit Mal RETAIL COORDINATOR [id number] [facility] [id number] MATERNAL [id number] & CHILD [address] [place] [address] - WEVER Results This patient has no known results.
--- OUTSIDE RECORDS SUMMARY | 2019-11-25 04:41 | XMS REPORT | Summary of Care ---
:1994 Author Organization [facility] Address [address] [place] [address] Care Team Providers Name Role Phone Pcp, Patient Does Not Have A Primary Care Provider +1-000-00 0-0000 Reason for Visit Reason Comments Orders Encounter Details Date Type Department Care Team Description 08/24/2019 Telephone [facility] Women's PérezFarnaz MD Orders Healthcare- [address] 146 [facility], Suite [facility] 20 8 208 [place] [address] [place] [address] [phone] Allergies No Known Allergiesdocumented as of this [...] INSULIN) 100 daily. unit/mL (3 mL) injection documented as of this encounter (statuses [...] Diabetes Amauri Erwin MD & Metabolism 2660 [place] [address] [phone] 09/21/2019 Routine Obstetrics & Gynecology Shelbie Pérez MD Visit [address] [place] [address] DR. Garcia [place], [place] [address] [phone] 09/21/2019 Reporting Process Consultant Visit Maternal Medicine Health Maintenance Due Date [...] Effective Dates Phone Addre ss Type Group [place] CHIL[facility]ENS [place] CHILDRENS xxxxxxxxx 2019-Present Medicaid HEALTH PLAN - HEALTH MANAGED MEDICAID documented as of this encounter
--- OUTSIDE RECORDS SUMMARY | 2019-11-25 04:41 | XMS REPORT | Summary of Care ---
:[address] [facility] Address [address] [place] [address] Care Team Providers Name Role Phone Pcp, Patient Does Not Have A Primary Care Provider +1-000-00 0-0000 Encounter Details Date Type Department Care Team Description 08/30/2019 [facility] 2660 [facility] Professional Office [address] [address] [address] [place] [address] [phone] Allergies No Known Allergiesdocumented as of this encounter (statuses as of 08/31/2019) Medications Medication Sig Dispensed Refills Start Date [...] as of this encounter (statuses as of 08/31/2019) Active Problems Problem Noted Date Supervision of high risk in second trimester 07/29/2019 15 weeks gestation of 07/29/2019 Type 1 diabetes mellitus with microalbuminuria 017 LFTs abnormal 01/19/2017 Estimated Date of Delivery Comments Yes 02/10/2020 Based on Ultrasound documented as of this encounter (statuses as of 08/31/2019) Immunizations Name Administration Dates Next Due HEPATITIS [...] Diabetes Amauri Erwin MD & Metabolism 2660 [place] [address] [phone] 09/21/2019 Routine Obstetrics & Gynecology Shelbie Pérez MD Visit [address] [place] [address] DR. Garcia [place], [place] [address] [phone] 09/21/2019 Binder Stripper Hand Visit Maternal Medicine Health Maintenance Due Date [...] Effective Dates Phone Addre ss Type Group [place] CH[place]DR[place] xxxxxxxxx 2019-Present Medicaid HEALTH PLAN - HEALTH MANAGED MEDICAID documented as of this encounter
--- OUTSIDE RECORDS SUMMARY | 2019-11-25 04:42 | XMS REPORT | Summary of Care ---
:1994 Author Organization [facility] Address [address] [place] [address] Care Team Providers Name Role Phone Pcp, Patient Does Not Have A Primary Care Provider +1-000-00 0-0000 Encounter Details Date Type Department Care Team Description 08/15/2019 Patient Secure Msg [facility] Women's PérezFarnaz MD [address] [facility] [address] [place] [address] 112 [place] [address] [phone] Allergies No Known Allergiesdocumented as of this encounter (statuses as of 09/17/2019) Medications Medication Sig Dispensed Refills Start Date End Date Status glucagon (GLUCAGON Inject 1 mg 1 mg 1 08/15/2019 Active EMERGENCY KIT, intravenously as HUMAN,) 1 mg needed injectionIndications (hypoglycemia). : Hypoglycemia documented as of this encounter (statuses as of 09/17/2019) Active Problems Problem Noted Date Supervision of high risk in second trimester 07/29/2019 15 weeks gestation of 07/29/2019 Type 1 diabetes mellitus with microalbuminuria 017 LFTs abnormal 01/19/2017 Estimated Date of Delivery Comments Yes 02/10/2020 Based on Ultrasound documented as of this encounter (statuses as of 09/17/2019) Immunizations Name Administration Dates Next Due HEPATITIS [...] Treatment Date Type Specialty Care Team Description 09/21/2019 Routine Obstetrics & Gynecology Shelbie Pérez MD Visit [address] [place] [address] DR. Garcia [place], [place] [address] [phone] 09/21/2019 Director Outcomes Visit Maternal Medicine 09/28/2019 Office Visit Endocrinology Diabetes Amauri Erwin MD & Metabolism 2660 [place] [address] Health Maintenance Due Date Last Done Comments [...] Effective Dates Phone Addre ss Type Group [place] xxxxxxxxx 2019-Present Medicaid HEALTH PLAN - [facility] MANAGED MEDICAID documented as of this encounter
--- OUTSIDE RECORDS SUMMARY | 2019-11-25 04:42 | XMS REPORT | Summary of Care ---
:1994 Author Organization [facility] Address [address] [place] [address] Care Team Providers Name Role Phone Pcp, Patient Does Not Have A Primary Care Provider +1-000-00 0-0000 Reason for Visit Reason Comments TEST RESULTS Partner Robert Muller Negative Encounter Details Date Type Department Care Team Description 09/06/2019 Case Management [facility] Women's Pérez, Farnaz edwards MD TEST RESULTS Healthcare- [address] (Partner [address], DR. Nitin Muller [address] Negative) [place], [place] [address] [phone] Allergies No Known Allergiesdocumented as of this encounter (statuses as of 09/06/2019) Medications Medication Sig Dispensed Refills Start Date [...] as of this encounter (statuses as of 09/06/2019) Active Problems Problem Noted Date Supervision of high risk in second trimester 07/29/2019 15 weeks gestation of 07/29/2019 Type 1 diabetes mellitus with microalbuminuria 017 LFTs abnormal 01/19/2017 Estimated Date of Delivery Comments Yes 02/10/2020 Based on Ultrasound documented as of this encounter (statuses as of 09/06/2019) Immunizations Name Administration Dates Next Due HEPATITIS [...] Signs Not on filedocumented in this encounter Progress Notes Bebeto Carroll - 09/06/2019 12:38 PM CDTPartner Robert Taveras Horizon NEGATIVE Placed on provider desk for signature and review. documented in this encounter Plan of Treatment Date Type Specialty Care Team Description 09/14/2019 Office Visit Endocrinology Diabetes Amauri Erwin MD & Metabolism 6920 [place] [address] 09/21/2019 Routine Obstetrics & Gynecology Shelbie Pérez MD Visit [address] [place] [address] [address]. [place], [place] [address] [phone] 09/21/2019 Instructor Pilot Visit Maternal Medicine Health Maintenance Due Date [...] Effective Dates Phone Addre ss Type Group [place]DRENS [place] CHILDRENS xxxxxxxxx 2019-Present Medicaid HEALTH PLAN - HEALTH MANAGED MEDICAID documented as of this encounter
--- OUTSIDE RECORDS SUMMARY | 2019-11-25 04:42 | XMS REPORT | Summary of Care ---
:1994 Author Organization [facility] Address [address] [place] [address] Care Team Providers Name Role Phone Pcp, Patient Does Not Have A Primary Care Provider +1-000-00 0-0000 Encounter Details Date Type Department Care Team Description 09/14/2019 Patient Secure [facility] Kaci Erwin MD [address] [phone] Allergies No Known Allergiesdocumented as of this encounter (statuses as of 09/19/2019) Medications Medication Sig Dispensed Refills Start Date [...] as of this encounter (statuses as of 09/19/2019) Active Problems Problem Noted Date Supervision of high risk in second trimester 07/29/2019 15 weeks gestation of 07/29/2019 Type 1 diabetes mellitus with microalbuminuria 017 LFTs abnormal 01/19/2017 Estimated Date of Delivery Comments Yes 02/10/2020 Based on Ultrasound documented as of this encounter (statuses as of 09/19/2019) Immunizations Name Administration Dates Next Due HEPATITIS [...] Obstetrics & Gynecology Shelbie Pérez MD Visit [address] [place] [address] DR. Garcia [place], [place] [address] [phone] 09/21/2019 Plant Technician/Control Room Operator Visit Maternal Medicine 09/28/2019 Office Visit Endocrinology Diabetes Amauri Erwin MD & Metabolism 2660 [place] [address] [phone] Health Maintenance Due Date Last Done Comments [...] Effective Dates Phone Addre ss Type Group [place] CHILDRENS xxxxxxxxx 2019-Present Medicaid HEALTH PLAN - HEALTH MANAGED MEDICAID documented as of this encounter
--- OUTSIDE RECORDS SUMMARY | 2019-11-25 04:42 | XMS REPORT | Summary of Care ---
:1994 Author Organization [facility] Address [address] [place] [address] Care Team Providers Name Role Phone Pcp, Patient Does Not Have A Primary Care Provider +1-000-00 0-0000 Reason for Visit Reason Comments Appointment Encounter Details Date Type Department Care Team Description 09/15/2019 Telephone [facility] Endocrinology- Edward Erwin MD Appointment [address] Professional Office [place], [place] [address] [place] [address] [phone] 208 [place] [address] Allergies No Known Allergiesdocumented as of this encounter (statuses as of 09/16/2019) Medications Medication Sig Dispensed Refills Start Date [...] as of this encounter (statuses as of 09/16/2019) Active Problems Problem Noted Date Supervision of high risk in second trimester 07/29/2019 15 weeks gestation of 07/29/2019 Type 1 diabetes mellitus with microalbuminuria 017 LFTs abnormal 01/19/2017 Estimated Date of Delivery Comments Yes 02/10/2020 Based on Ultrasound documented as of this encounter (statuses as of 09/16/2019) Immunizations Name Administration Dates Next Due HEPATITIS [...] Obstetrics & Gynecology Shelbie Pérez MD Visit [address] [place] [address] DR. Garcia [place], [place] [address] [phone] 09/21/2019 Barrel Brander Visit Maternal Medicine 09/28/2019 Office Visit Endocrinology Diabetes Amauri Erwin MD & Metabolism 2660 [place] [address] [phone] Health Maintenance Due Date Last Done Comments [...]
--- OUTSIDE RECORDS SUMMARY | 2019-11-25 04:42 | XMS REPORT | Summary of Care ---
:1994 Author Organization [facility] Address [address] [place] [address] Care Team Providers Name Role Phone Pcp, Patient Does Not Have A Primary Care Provider +1-000-00 0-0000 Encounter Details Date Type Department Care Team Description 08/30/2019 [facility] MD Endocrinology- [facility] 2660 [facility] Professional Office [address] [address] [address] [place] [address] [phone] Allergies No Known Allergiesdocumented as of this [...] Diabetes Amauri Erwin MD & Metabolism 2660 [place] [address] [phone] 09/21/2019 Routine Obstetrics & Gynecology Shelbie Pérez MD Visit [address] [place] [address] DR. Garcia [place], [place] [address] [phone] 09/21/2019 Regrader Visit Maternal Medicine Health Maintenance Due Date [...] Effective Dates Phone Addre ss Type Group [place] CH[place]DR[place] xxxxxxxxx 2019-Present Medicaid HEALTH PLAN - HEALTH MANAGED MEDICAID documented as of this encounter
--- OUTSIDE RECORDS SUMMARY | 2019-11-25 04:42 | XMS REPORT | Summary of Care ---
:1994 Author Organization [facility] Address [address] [place] [address] Care Team Providers Name Role Phone Pcp, Patient Does Not Have A Primary Care Provider +1-000-00 0-0000 Reason for Visit Reason Comments Medical Records Encounter Details Date Type Department Care Team Description 09/12/[address] [facility] Women's Sammi Clifton [facility] Records [facility]- [address] [place] [address] [place], [place] [phone] [address] Allergies No Known Allergiesdocumented as of this encounter (statuses as of 09/12/2019) Medications Medication Sig Dispensed Refills Start Date [...] as of this encounter (statuses as of 09/12/2019) Active Problems Problem Noted Date Supervision of high risk in second trimester 07/29/2019 15 weeks gestation of 07/29/2019 Type 1 diabetes mellitus with microalbuminuria 017 LFTs abnormal 01/19/2017 Estimated Date of Delivery Comments Yes 02/10/2020 Based on Ultrasound documented as of this encounter (statuses as of 09/12/2019) Immunizations Name Administration Dates Next Due HEPATITIS [...] on filedocumented in this encounter Progress Notes Sammi Clifton PA-C - 09/12/2019 3:00 PM CDTMR received from Dr. Akila Leung. DX: pre-existing type 1 DM in . LMP 03/29/2019 24 hr urine done on 07/09/2019 Protein urine conc 24 mg/dl Protein urine 24 hr 312 mg/24 hrs (high) Total urine volume 1300ml Creatinine urine conc 87.4 MgDL Creatinine urine, 24 hr 1.1 gm/24 hrs Total urine volume 1300 mL documented in this encounter Plan of Treatment Date Type Specialty Care Team Description 09/14/2019 Office Visit Endocrinology Diabetes Amauri Erwin MD & Metabolism 2660 [place] [address] [phone] 09/21/2019 Routine Obstetrics & Gynecology Shelbie Pérez MD Visit [address] [place] [address] DR. Garcia [place], [place] [address] [phone] 09/21/2019 Special Delivery Clerk Visit Maternal Medicine Health Maintenance Due Date [...] Dates Phone Addre ss Type Group [place] CH[place]DR[place] xxxxxxxxx 2019-Present Medicaid HEALTH PLAN - HEALTH MANAGED MEDICAID documented as of this encounter
--- OUTSIDE RECORDS SUMMARY | 2019-11-25 04:42 | XMS REPORT | Summary of Care ---
:1994 Author Organization [facility] Address [address] [place] [address] Care Team Providers Name Role Phone Pcp, Patient Does Not Have A Primary Care Provider +1-000-00 0-0000 Reason for Visit Reason Comments TEST RESULTS Panoranv Low Risk / Female Encounter Details Date Type Department Care Team Description 09/20/2019 Case Management [facility] Women's PérezFarnaz MD TEST RESULTS Healthcare- [address] ([facility] / [address] [place] [address], DR. Cuevas) [address] [place], [place] [address] [phone] Allergies No Known Allergiesdocumented as of this encounter (statuses as of 09/20/2019) Medications Medication Sig Dispensed Refills Start Date [...] as of this encounter (statuses as of 09/20/2019) Active Problems Problem Noted Date Supervision of high risk in second trimester 07/29/2019 15 weeks gestation of 07/29/2019 Type 1 diabetes mellitus with microalbuminuria 017 LFTs abnormal 01/19/2017 Estimated Date of Delivery Comments Yes 02/10/2020 Based on Ultrasound documented as of this encounter (statuses as of 09/20/2019) Immunizations Name Administration Dates Next Due HEPATITIS [...] this encounter Progress Notes Bebeto Carroll - 09/20/2019 9:51 AM CDTPanorama Low Risk Sex Female Placed in provider folder for signature and review. documented in this encounter Plan of Treatment Date Type Specialty Care Team Description 09/21/2019 Telemedicine Visit Obstetrics & Gynecology Farnaz Pérez MD [address] [place] [address] DR. Garcia [place], [place] [address] [phone] 09/21/2019 Motel Operator Visit Maternal Medicine 09/28/2019 Telemedicine Visit Endocrinology Diabetes & Edward Erwin MD Metabolism 2660 [place] [address] [phone] Health Maintenance Due Date Last Done Comments [...] Effective Dates Phone Addre ss Type Group [place]DRENS [place] CH[place]DRENS xxxxxxxxx 2019-Present Medicaid HEALTH PLAN - HEALTH MANAGED MEDICAID documented as of this encounter
--- OUTSIDE RECORDS SUMMARY | 2019-11-25 04:43 | XMS REPORT | Summary of Care ---
:1994 Author Organization [facility] Address [address] [place] [address] Care Team Providers Name Role Phone Pcp, Patient Does Not Have A Primary Care Provider +1-000-00 0-0000 Reason for Visit Reason Comments Appointment Encounter Details Date Type Department Care Team Description 09/21/2019 Telephone [facility] Women's PérezFarnaz MD Appointment Healthcare- [address] [facility], Suite [facility] 20 8 208 [place] [address] [place] [address] [phone] Allergies No Known Allergiesdocumented as of this encounter (statuses as of 09/21/2019) Medications Medication Sig Dispensed Refills Start Date [...] diabetes mellitus affecting in second trimester, antepartum vit Take by mouth. 0 A ctive calc,iron,folic ( VITAMIN ORAL) documented as of this encounter (statuses as of 09/21/2019) Active Problems Problem Noted Date Supervision of high risk in second trimester 07/29/2019 15 weeks gestation of 07/29/2019 Type 1 diabetes mellitus with microalbuminuria 017 LFTs abnormal 01/19/2017 Estimated Date of Delivery Comments Yes 02/10/2020 Based on Ultrasound documented as of this encounter (statuses as of 09/21/2019) Immunizations Name Administration Dates Next Due HEPATITIS [...] Date Type Specialty Care Team Description 09/21/2019 Triage Assistant Visit Maternal Medicine Shelbie Pérez MD [address] [place] [address] [address]. [address] [place], [place] [address] [phone] 09/21/2019 Triage Assistant Visit [facility] Farnaz Pérez MD [address] [place] [address] [address] [place] [address] [phone] Jaspal, Liliam 09/28/2019 Telemedicine Visit Endocrinology Diabetes & Edward Erwin MD [facility] 5340 [place] [address] [phone] 10/19/2019 Telemedicine Visit Obstetrics & Gynecology Farnaz Pérez MD [address] [place] [address] DR. [address] [place] [address] [phone] Health Maintenance Due Date Last Done Comments [...] Effective Dates Phone Addre ss Type Group [place] CH[place]DR[place] CHILDR[place] xxxxxxxxx 2019-Present Medicaid HEALTH PLAN - HEALTH MANAGED MEDICAID documented as of this encounter
--- OUTSIDE RECORDS SUMMARY | 2019-11-25 04:43 | XMS REPORT | Summary of Care ---
:1994 Author Organization [facility] Address [address] [place] [address] Care Team Providers Name Role Phone Pcp, Patient Does Not Have A Primary Care Provider +1-000-00 0-0000 Reason for Visit Reason Comments LAB WORK POCT 7 dip and Urine culture collection per Dr. Pérez request Encounter Details Date Type Department Care Team Description 09/21/2019 Case Management [facility] Women's Farnaz Pérez MD LAB WORK (POCT 7 dip Healthcare- [address] and Urine culture [address] [place] [address], collection per Dr. Kurtz [address] Beto request) [place], [place] [address] [phone] Allergies No Known Allergiesdocumented as of this [...] this encounter Progress Notes Bebeto Carroll - 09/21/2019 10:[address] Beto is requesting that the patient have a UA and Urine Culture collected today at her ultrasound visit @ [facility] to avoid any additional exposure at our clinic due to COVID-19. Patient is asymptomatic at this time, but feels she may have a UTI. Dr. Pérez preformed Telehealth visit with patient this morning. Orders have been placed in [facility]. documented in this encounter Plan of Treatment Date Type Specialty Care Team Description 09/21/2019 Explosive Ordnance Disposal Manager Visit Maternal Medicine Shelbie Pérez MD [address] [place] [address] DR. Garcia [place] [address] [phone] 09/28/2019 Telemedicine Visit Endocrinology Diabetes & Erwin, MD Edward Metabolism 2660 [place] [address] [phone] Health Maintenance Due Date Last Done Comments [...]
--- OUTSIDE RECORDS SUMMARY | 2019-11-25 04:44 | XMS REPORT | Summary of Care ---
:1995 Author Organization [facility] Address [address] [place] [address] Care Team Providers Name Role Phone Pcp, Patient Does Not Have A Primary Care Provider +1-000-00 0-0000 Reason for Referral (Routine) Status Reason Specialty Diagnoses / Referred By Referred To Procedures Contact Contact New Request Maternal Diagnoses Supervision of high risk in second trimester 19 weeks gestation of Type 1 diabetes mellitus without complication Farnaz Pérez, Medicine Procedures CONSULT MATERNAL MEDICINE ULTRASOUND Preferred Location: Leeann MONREAL [address] [place] [address] [address] [place] [address] Reason for Visit Reason Comments ROUTINE VISIT Encounter Details Date Type Department Care Team Description 09/21/[address] [facility]'s Farnaz Pérez, Supervision of high risk in second trimester (Primary Dx); Healthcare- 19 weeks gestation of ; [address] Type 1 diabetes mellitus wit hout complication [address] [place] [address] [address] [place] [address] [phone] Allergies No Known Allergiesdocumented as of this encounter (statuses as of 09/23/2019) Medications Medication Sig Dispensed Refills Start Date [...] as of this encounter (statuses as of 09/23/2019) Active Problems Problem Noted Date Supervision of high risk in second trimester 07/29/2019 19 weeks gestation of 07/29/2019 Type 1 diabetes mellitus with microalbuminuria 017 LFTs abnormal 01/19/2017 Estimated Date of Delivery Comments Yes 02/10/2020 Based on Ultrasound documented as of this encounter (statuses as of 09/23/2019) Immunizations Name Administration Dates Next Due HEPATITIS [...] on filedocumented in this encounter Progress Notes Farnaz Pérez MD - 09/21/2019 9:45 AM CDT TELEHEALTH NOTE Verbal consent obtained from Patient: Sri Rosales for telehealth services provided below. Communication with patient was conducted via Telephone. Location of Patient: Home Location of Provider: Office Date of Service: 09/21/2019 Chief Complaint: routine visit HPI: Sri Rosales is a 23 year old female @ 19w5d here for routine visit. Deniescontractions, vaginal bleeding, LOF, dysuria, or PIH symptoms. + flutter. Intermittent abdominal pain, not currently Not sure if she has a UTI as has vaginal discharge Vaginal discharge: white, no foul-odor, denies vaginal itching/spotting or irritation Yellow urine, denies dysuria or hematuria or foul-odor Past Medical History: Diagnosis Date Diabetes mellitus type 1 diagnosed at 9 years old Elevated LFTs Type 1 diabetes mellitus without complication 01/19/2017 MEDICATIONS: Outpatient Medications Marked as Taking for the 09/21/19 encounter (Telemedicine Visit) with Farnaz Pérez MD Medication Sig Dispense Refill vit calc,iron,folic ( VITAMIN ORAL) Take by mouth. ROS Denies fever, chills, chest pain, SOB, constipation, diarrhea, nausea, vomiting. Pain score: 0 TELEHEALTH EXAM Alert and answering/asking questions appropriately ASSESSMENT/ PLAN Sri Rosales is a 23 year old female with PMH as above presenting with: 1. Supervision of high risk in second trimester 2. 19 weeks gestation of 3. Type 1 diabetes mellitus without complication See OB Summary Discussed about COVID-19/flu precautions. Social distancing, frequent hand washings, and to follow CDC recommendations discussed. Indications for testing discussed. After visit summary (AVS ) documentation will be available through [employer] for this encounter. Farnaz Pérez MD 09/21/2019 10:24 AM documented in this encounter Plan of Treatment Date Type Specialty Care Team Description 09/28/2019 Telemedicine Visit Endocrinology Diabetes & Edward Erwin MD Metabolism [address] [place], [place] [address] 10/19/2019 Telemedicine Visit Obstetrics & Gynecology Farnaz Pérez MD [address] [place] [address] DR. Garcia [place] [address]685 15 [phone] Name Type Priority Associated Diagnoses Order S chedule POCT URINALYSIS W/O LAB Routine Supervision of high r isk Expected: 09/21/2019, SPECIFIC GRAVITY in second Expi res: 09/23/2019 trimester Health Maintenance Due Date Last Done Comments [...] exists documented as of this encounter Results URINE CULTURE (09/21/2019 2:00 PM CDT) Pathologist Sig nature URINE CULTURE No aerobic growth [facility] (< 1000 CFU/mL) SERVICES Specimen Urine - URINE, CLEAN CATCH Performing Organization Address City/State/Zipcode Phone Number [facility] CLIA: [id number], [address] [place], [place] [address] [facility] documented in this encounter Visit Diagnoses Diagnosis Supervision of high risk in se cond trimester - Primary Unspecified high-risk 19 weeks gestation of state, incidental Type 1 diabetes mellitus without complic ation Type I (juvenile type) diabetes mellitus without mention of complication, not stated as uncontrolled documented in this encounter Insurance Payer Benefit Plan / Subscriber ID Effective Dates Phone Addre ss Type Group [place] [facility] xxxxxxxxx 2019-Present Medicaid HEALTH PLAN - HEALTH MANAGED MEDICAID [id number] 1 documented as of this encounter
--- OUTSIDE RECORDS SUMMARY | 2019-11-25 04:44 | XMS REPORT | Summary of Care ---
:1995 Author Organization [facility] Address [address] [place] [address] Care Team Providers Name Role Phone Pcp, Patient Does Not Have A Primary Care Provider +1-000-00 0-0000 Reason for Visit Reason Comments LAB Encounter Details Date Type Department Care Team Description 09/21/2019 Umbrella Tipper Visit [facility]- Beto, Farnaz edwards MD [address] [place] [address] [address] [place] [address] Supervision of [facility], [facility] risk in [address] [facility] [place] [address] Allergies No Known Allergiesdocumented as of this [...] Diabetes & Edward Erwin MD Metabolism [address] [place] [address] [phone] 10/19/2019 Telemedicine Visit Obstetrics & Gynecology Farnaz Pérez MD [address] [place] [address] [address]. Garcia [place] [address] 15 [phone] Health Maintenance Due Date Last Done Comments [...] filedocumented in this encounter Visit Diagnoses Diagnosis Supervision of high risk in se cond trimester Unspecified high-risk documented in this encounter Insurance Payer Benefit Plan / Subscriber ID Effective Dates Phone Addre ss Type Group [place] [facility] [place] xxxxxxxxx 2019-Present Medicaid HEALTH PLAN - HEALTH MANAGED MEDICAID [id number] 1 documented as of this encounter
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
--- OUTSIDE RECORDS SUMMARY | 2019-11-25 04:44 | XMS REPORT | Summary of Care ---
:1994 Author Organization [facility] Address [address] [place] [address] Care Team Providers Name Role Phone Pcp, Patient Does Not Have A Primary Care Provider +1-000-00 0-0000 Reason for Visit Reason Comments LAB Encounter Details Date Type Department Care Team Description 09/21/2019 Supervisor Maintenance And Custodians Visit [facility]- Beto, Farnaz edwards MD [address] [place] [address] [address] [place] [address] Supervision of [facility], [facility] risk in [address] [facility] [address] Allergies No Known Allergiesdocumented as [...] Diabetes & Edward Erwin MD Metabolism [address] [place] [address] [phone] 10/19/2019 Telemedicine Visit Obstetrics & Gynecology Farnaz Pérez MD [address] [place] [address] DR. Garcia [place] [address] [phone] Name Type Priority Associated Diagnoses Date/Ti me URINE CULTURE LAB Routine Supervision of high risk 2:00 PM CDT in second trimeste r Health Maintenance Due Date Last Done Comments [...] Effective Dates Phone Addre ss Type Group [place] [facility] [place] xxxxxxxxx 2019-Present Medicaid HEALTH PLAN - HEALTH MANAGED MEDICAID [id number] 1 documented as of this encounter
--- OUTSIDE RECORDS SUMMARY | 2019-11-25 04:45 | XMS REPORT | Summary of Care ---
:1995 Author Organization [facility] Address [address] [place] [address] Care Team Providers Name Role Phone Pcp, Patient Does Not Have A Primary Care Provider +1-000-00 0-0000 Reason for Visit Reason Comments LAB WORK DECLINED [facility] due to COVID- 19 crisis Encounter Details Date Type Department Care Team Description 09/23/2019 Telephone [facility] Women's PérezFarnaz MD LAB WORK (DECLINED Healthcare- [address] [facility] due to COVID-[address] [place] [address], DR[address] egan) [address] [phone] Allergies No Known Allergiesdocumented as of this [...] Diabetes & Edward Erwin MD Metabolism [address] [place] [address] [phone] 10/19/2019 Telemedicine Visit Obstetrics & Gynecology Farnaz Pérez MD [address] [place] [address] [address]. Garcia [place] [phone] Health Maintenance Due Date Last Done Comments [...] Effective Dates Phone Addre ss Type Group [place] [facility] [place] xxxxxxxxx 2019-Present Medicaid HEALTH PLAN - HEALTH MANAGED MEDICAID documented as of this encounter
--- OUTSIDE RECORDS SUMMARY | 2019-11-25 04:45 | XMS REPORT | Summary of Care ---
:1994 Author Organization [facility] Address [address] [place] [address] Care Team Providers Name Role Phone Pcp, Patient Does Not Have A Primary Care Provider +1-000-00 0-0000 Reason for Visit Reason Comments LAB Encounter Details Date Type Department Care Team Description 09/23/2019 Honey Processor Visit [facility] Farnaz Pérez MD [address] [place] [address] [address] [place] [address] Supervision of high Professional Office 2, [facility] Lab risk in Building Phlebotomy second t [facility] Lab Professional Office Building [address] [facility] , [address] [place] [address] Allergies No Known Allergiesdocumented as [...] Diabetes & Edward Erwin MD Metabolism [address] [place], [place] [address] 10/19/2019 Telemedicine Visit Obstetrics & Gynecology Farnaz Pérez MD [address] [place] [address] DR. Garcia [place], [place] [address] [phone] Health Maintenance Due Date Last Done Comments [...] Effective Dates Phone Addre ss Type Group [place] [facility] [place] xxxxxxxxx 2019-Present Medicaid HEALTH PLAN - HEALTH MANAGED MEDICAID [id number] 1 documented as of this encounter
--- OUTSIDE RECORDS SUMMARY | 2019-11-25 04:45 | XMS REPORT | Summary of Care ---
:1995 Author Organization [facility] Address [address] [place] [address] Care Team Providers Name Role Phone Pcp, Patient Does Not Have A Primary Care Provider +1-000-00 0-0000 Reason for Visit Reason Comments LAB WORK [facility] Ordered ; patient will jeffrey her mind Encounter Details Date Type Department Care Team Description 09/23/2019 Telephone [facility] Women's PérezFarnaz MD LAB WORK ([facility]- [address] Ordered ; patient [address] [place] [address], changed her mind) [address] [phone] Allergies No Known Allergiesdocumented as of this [...] Treatment Date Type Specialty Care Team Description 09/23/2019 Workshop Manager Visit Phlebotomy 2, [facility] 09/28/2019 Telemedicine Visit Endocrinology Diabetes & Edward Erwin MD Metabolism [address] [place] [address] [phone] 10/19/2019 Telemedicine Visit Obstetrics & Gynecology Farnaz Pérez MD [address] [place] [address] [address]. Garcia [place] [address] [phone] Name Type Priority Associated Diagnoses Order S chedule ALPHA LAB Routine Supervision of high risk Exp ected: 09/23/2019, FETOPROTEIN-MATERNAL in second Expires: 10/23/2019 SER trimester Health Maintenance Due Date Last Done [...] se cond trimester - Primary Unspecified high-risk documented in this encounter Insurance Payer Benefit Plan / Subscriber ID Effective Dates Phone Addre ss Type Group [place] xxxxxxxxx 2019-Present Medicaid HEALTH PLAN - HEALTH MANAGED MEDICAID documented as of this encounter
--- OUTSIDE RECORDS SUMMARY | 2019-11-25 04:46 | XMS REPORT | Summary of Care ---
:1994 Author Organization [facility] Address [address] [place] [address] Care Team Providers Name Role Phone Pcp, Patient Does Not Have A Primary Care Provider +[phone] 0-0000 Reason for Visit Reason Comments Follow-up Diabetes Mellitus I Encounter Details Date Type Department Care Team Description 09/28/2019 Telemedicine Visit [facility] Edward Erwin MD Type 1 diabetes mellitus affecting pregn salima in second trimester, antepartum (Primary Dx); Endocrinology- [address] [place] [address] High-risk pre gnancy supervision, second trimester [facility] [address] [phone] Dr. Kurtz [address] [place], [place] (Fax) [phone] Allergies No Known Allergiesdocumented as of this encounter (statuses as of 09/28/2019) Medications Medication Sig Dispensed Refills Start End Date Status Date glucagon Inject 1 mg 1 mg 1 Active (GLUCAGON intravenously as 0 EMERGENCY KIT, needed HUMAN,) 1 mg (hypoglycemia). injectionIndicati ons: Hypoglycemia insulin aspart Use via sliding 36 mL 1 Active U-100 (NOVOLOG scale TIDAC up to 0 FLEXPEN U-100 max dose of 40 INSULIN) 100 units daily unit/mL (3 mL) injectionIndicati ons: Type 1 diabetes mellitus affecting in second trimester, antepartum vit Take by mouth. 0 A ctive calc,iron,folic ( VITAMIN ORAL) Insulin Glargine inject 30 Units 0 Active (LANTUS SOLOSTAR under the skin 0 U-100 INSULIN) daily. 100 unit/mL (3 mL) injection Insulin Glargine inject 32 Units 0 0 Discontinued (LANTUS SOLOSTAR under the skin 0 20 (Dose U-100 INSULIN) daily. adjus tment) 100 unit/mL (3 mL) injection documented as of this encounter (statuses as of 09/28/2019) Active Problems Problem Noted Date Supervision of high risk in second trimester 07/29/2019 19 weeks gestation of 07/29/2019 Type 1 diabetes mellitus with microalbuminuria 017 LFTs abnormal 01/19/2017 Estimated Date of Delivery Comments Yes 02/10/2020 Based on Ultrasound documented as of this encounter (statuses as of 09/28/2019) Immunizations Name Administration Dates Next Due HEPATITIS [...] Signs Not on filedocumented in this encounter Patient Instructions Patient InstructionsEdward Erwin MD - 09/28/2019 8:00 AM CDTContinue Lantus 30 units at night Continue Novolog before meals 1 unit per 8grams carbohydrate plus minus 1 unit per 30 mg %,with deduct 100 from your sugar reading ; take extra 2 units for your lunch When you have sugar at 55 to 100 before meal, cut down 15 gram carbohydrates from your counting and recalculate novolog dose Obtain blood tests after week of 24th documented in this encounter Progress Notes Edward Erwin MD - 09/28/2019 8:00 AM CDT TELEHEALTH NOTE Verbal consent obtained from Patient: Sri Rosales due to the COVID-19 pandemic for telehealth services provided below. Communication with patient was conducted via Telephone. Patient unable to use video device Location of Patient: Home Location of Provider: Office Date of Service: 09/28/2019 Chief Complaint: follow up for type I DM with cocurrent HPI: Sri Rosales is a 23 year old female with Past Medical History: Diagnosis Date Diabetes mellitus type 1 diagnosed at 9 years old Elevated LFTs Type 1 diabetes mellitus without complication 01/19/2017 who is called today for Diabetes Mellitus Type 1. Patient's diabetes is complicated with microalbuminuria . Per patient , DM was diagnosed at age of 9 YEAR-OLD and A1c has been poorly controlled at11-14% in past few years. She has receiving care for her diabetes in [place], [place]. Patient states she tried pump in past and refused treatment with insulin pump or CGM She recently relocated to this area and established care with OBGYN on 07/27/2019 with 11 5/7 weeks in . A1C checked at that visit was at 9.1% She was referred here in 07/2019 and patient was advised to change Novolog SSI. KATIE was in 08/17/19. Patient was advised to reduced Lantus from 35 to 30 units QHS as well as changeTaking Novolog before meals 1 unit per 8 grams carbohydrate plus minus 1 unit per 30 mg % ( with target to 100) due to hypoglycemia Patient reports hypoglycemia improving but she has some highs in PM post lunch Patient has been checking blood glucoses 4-5 times a day. She was given Rx of freestyle jack in LOVbut she did not filled Patient has brought in the blood sugars to be reviewed today. Average blood sugar in past 2 weeks.at bedtime 82-149, at breakfast 56-105. Most at 70-80, post breakfast 172,219, post lunch/ before supper 173-277(6pm) The patient is having isolated problems after meals/bolus with hypoglycemia once a week Her lowest BG in past two weeks was 56. Patient is better compliant with medication regimen. Taking Lantus 30 units at bedtime , Novolog before meals 1 unit per 8 grams carbohydrate plus minus 1 unit per 30 mg % ( with target to 100). But she over or underestimated carbs at time Patient is compliant with diet and walks daily Patient is currently 20th weeks in and following [facility] OBGYN for care DIABETIC HEALTH MAINTENANCE Last Ophthalmology visit was 2018. Ordered in 06/2019 Patient on MIKEY/ARB therapy - Contraindicated Patient on ASA therapy - Contraindicated. Patient on Statin/Fibrate therapy - Contraindicated. Patient received Flu shot this season - Yes. Patient instructed about daily feet exams, last sensation exam was 08/03/2019 . Patient has received Nutrition/Diet/Diabetes Education on 08/03/2019 MEDICATIONS: Patient's Medications START taking these medications No medications on file CONTINUE taking these medications which have NOT CHANGED GLUCAGON (GLUCAGON EMERGENCY KIT, HUMAN,) 1 MG INJECTION Inject 1 mg intravenously as needed (hypoglycemia). INSULIN ASPART U-100 (NOVOLOG FLEXPEN U-100 INSULIN) 100 UNIT/ML (3 ML) INJECTION Use via sliding scale TIDAC up to max dose of 40 units daily VIT CALC,IRON,FOLIC ( VITAMIN ORAL) Take by mouth. START taking Modified Medications as Prescribed Modified Medication Previous Medication INSULIN GLARGINE (LANTUS SOLOSTAR U-100 INSULIN) 100 UNIT/ML (3 ML) INJECTION Insulin Glargine (LANTUS SOLOSTAR U-100 INSULIN) 100 unit/mL (3 mL) injection inject 30 Units under the skin daily. inject 32 Units under the skin daily. STOP taking these medications No medications on file ROS Constitutional: denies weight change, + fatigue Eyes: denies blurry vision, denies diplopia and denies pain. Neck: denies pain, denies swollen glands Cardiovascular: denies chest pain , denies irregular pulse and denies palpitations. Respiratory: denies dyspnea on exertion and denies shortness of breath. Gastrointestinal: denies abdominal pain, denies constipation and denies diarrhea. Genitourinary: denies burning and denies dysuria. Musculoskeletal: denies back pain, denies muscle pain and denies weakness. Skin: denies dry skin and denies hair changes. Neuro: denies numbness , denies tingling and denies tremor. Psych: + stress Endocrine:+ hyperglycemia denies goiter, denies hair loss, denies intolerance to cold, denies intolerance to heat, denies polydipsia, denies polyphagia and denies polyuria. TELEHEALTH EXAM Chest/ Lungs: Patient not short of breath during phone encounter. Breathing sounds are normal on thephone. Neuro: Patient answering questions appropriately. Alert. No additional exam as this is a telephone encounter. No results found for: POCGLU CREATININE (mg/dL) Date Value 08/17/2019 0.66 No results found for: CHOL No results found for: HDL No results found for: LDL No results found for: TRIG No results found for: ALBUCREAT, UALBCREAT POCT HBA1C (%) Date Value 08/17/2019 6.7 Ref. Range 08/17/2019 14:25 FT4(DIAL) Latest Ref Range: 1.1 - 2.4 ng/dL 1.4 ALK PHOS Latest Ref Range: 34 - 122 U/L 51 ALTv Latest Ref Range: 5 - 35 U/L 15 AST(SGOT) Latest Ref Range: 13 - 40 U/L 27 TSH Latest Ref Range: 0.45 - 4.70 mIU/L 2.54 ASSESSMENT/ PLAN Sri Rosales is a 23 year old female with PMH as above presenting with: 1. Type 1 diabetes mellitus affecting in second trimester, antepartum 2. High-risk supervision, second trimester -A1C: 11.1 (05/17)--->9.1(07/18)-->6.7(08/18) longstanding hx of poor control -glucose range: fluctuation with high and lows improving -reduced hypoglycemia to once a week only -complication: nephropathy -diet: compliant -exercise: active - She is at Risk for compromising . Plan Continue monitor Bgs 4-5 times a day -urged compliance with diet/exercise -Review glucose log in 4 weeks for further adjustment - GLYCOSYLATED HEMOGLOBIN (A1C); Future - CBC WITH DIFF; Future - COMP. METABOLIC PANEL (42199); Future Patient Instructions Continue Lantus 30 units at night Continue Novolog before meals 1 unit per 8grams carbohydrate plus minus 1 unit per 30 mg %,with deduct 100 from your sugar reading ; take extra 2 units for your lunch When you have sugar at 55 to 100 before meal, cut down 15 gram carbohydrates from your counting and recalculate novolog dose Obtain blood tests after week of 24th 2. High-risk supervision, second trimester Monitor hypo/hyperthyroid in third trimester - GLYCOSYLATED HEMOGLOBIN (A1C); Future - Free T4 by [facility] Dialysis; Future - THYROID STIMULATING HORMONE; Future - THYROXINE, TOTAL; Future - CBC WITH DIFF; Future - COMP. METABOLIC PANEL (73779); Future After visit summary (AVS ) documentation will be available through [employer] for this encounter. A total of 25 minutes was spent on the Telephone with the patient. Edward Erwin MD documented in this encounter Plan of Treatment Date Type Specialty Care Team Description 10/19/2019 Telemedicine Visit Obstetrics & Gynecology Farnaz Pérez MD [address] [place] [address] DR. Garcia [place], [place] [address] [phone] 11/29/2019 Office Visit Endocrinology Diabetes & Denys Erwin MD Metabolism [address] [place] [address] Name Type Priority Associated Diagnoses Order S chedule GLYCOSYLATED HEMOGLOBIN LAB Routine Type 1 diabetes m ellitus Expected: 09/28/2019, (A1C) affecting in Expir es: 09/27/2020 second trimester, antepartum High-risk supervision, second trimester Free T4 by [facility] Dialysis LAB Routine High-risk preg maegan Expected: 09/28/2019, supervision, second Expires: 09/27/2020 trimester THYROID STIMULATING LAB Routine High-risk E xpected: 09/28/2019, HORMONE supervision, second Expires: 09/27/2020 trimester THYROXINE, TOTAL LAB Routine High-risk Expe cted: 09/28/2019, supervision, second Expires: 09/27/2020 trimester CBC WITH DIFF LAB Routine Type 1 diabetes mellitus Ex pected: 09/28/2019, affecting in Expir es: 09/27/2020 second trimester, antepartum High-risk supervision, second trimester COMP. METABOLIC PANEL LAB Routine Type 1 diabetes ronni litus Expected: 09/28/2019, (06234) affecting in Expir es: 09/27/2020 second trimester, antepartum High-risk supervision, second trimester Health Maintenance Due Date Last Done [...] filedocumented in this encounter Visit Diagnoses Diagnosis Type 1 diabetes mellitus affecting pregn salima in second trimester, antepartum - Primary High-risk supervision, second trimester documented in this encounter Insurance Payer Benefit Plan / Subscriber ID Effective Dates Phone Addre ss Type Group [place] CHILDRENS xxxxxxxxx 2019-Present Medicaid HEALTH PLAN - HEALTH MANAGED MEDICAID [id number] documented as of this encounter
--- OUTSIDE RECORDS SUMMARY | 2019-11-25 04:46 | XMS REPORT | Summary of Care ---
:1994 Author Organization [facility] Address [address] [place] [address] Care Team Providers Name Role Phone Pcp, Patient Does Not Have A Primary Care Provider +1-000-00 0-0000 Encounter Details Date Type Department Care Team Description 08/24/2019 Patient Secure Msg [facility] Doctor Unassigned, [address] [place] [address] [place] [address] [address] [place] [address] [place] [address] Allergies No Known Allergiesdocumented as of this encounter (statuses as of 09/24/2019) Medications Medication Sig Dispensed Refills Start Date [...] as of this encounter (statuses as of 09/24/2019) Active Problems Problem Noted Date Supervision of high risk in second trimester 07/29/2019 19 weeks gestation of 07/29/2019 Type 1 diabetes mellitus with microalbuminuria 017 LFTs abnormal 01/19/2017 Estimated Date of Delivery Comments Yes 02/10/2020 Based on Ultrasound documented as of this encounter (statuses as of 09/24/2019) Immunizations Name Administration Dates Next Due HEPATITIS [...] Visit Endocrinology Diabetes & [place] Erwin MD [address] [place] [address] [phone] 10/19/2019 Telemedicine Visit Obstetrics & Gynecology Farnaz Pérez MD [address] [place] [address] DR. Garcia [place], [place] [address] [phone] Health Maintenance Due Date Last Done Comments [...] Effective Dates Phone Addre ss Type Group [place] CHILDRENS xxxxxxxxx 2019-Present Medicaid HEALTH PLAN - HEALTH MANAGED MEDICAID documented as of this encounter
--- OUTSIDE RECORDS SUMMARY | 2019-11-25 04:46 | XMS REPORT | Summary of Care ---
:1994 Author Organization [facility] Address [address] [place] [address] Care Team Providers Name Role Phone Pcp, Patient Does Not Have A Primary Care Provider +1-000-00 0-0000 Encounter Details Date Type Department Care Team Description 09/23/2019 Orders Only [facility] Doctor Unassigned, No [address] [facility] [place] [address] [address] [place] [address] Allergies No Known Allergiesdocumented as of this encounter (statuses as of 09/28/2019) Medications Medication Sig Dispensed Refills Start Date [...] Visit Endocrinology Diabetes & [place] Erwin MD [address] [place], [place] [id number] 10/19/2019 Telemedicine Visit Obstetrics & Gynecology Farnaz Pérez MD [address] [place] [address] DR. Garcia [place] [address] [phone] Health Maintenance Due Date Last Done Comments [...] Name Priority Date/Time Associated Diagnosis Comme nts AGREEMENTS AUTHORIZATIONS Routine 09/23/2019 12:01 AM AND IRREVOCABLE CDT ASSIGNMENTS (FORM 2001) documented in this encounter Results Not on filedocumented in this encounter Insurance Payer Benefit Plan / Subscriber ID Effective Dates Phone Addre ss Type Group [place] CHILDRENS xxxxxxxxx 2019-Present Medicaid HEALTH PLAN - HEALTH MANAGED MEDICAID documented as of this encounter
--- OUTSIDE RECORDS SUMMARY | 2019-11-25 04:46 | XMS REPORT | Summary of Care ---
:1994 Author Organization [facility] Address [address] [place] [address] Care Team Providers Name Role Phone Pcp, Patient Does Not Have A Primary Care Provider +1-000-00 0-0000 Encounter Details Date Type Department Care Team Description 09/28/2019 Patient Secure [facility] Kaci Erwin MD [address] [phone] Allergies No Known Allergiesdocumented as of this [...] Visit Obstetrics & Gynecology Farnaz Pérez MD [address] [place] [address] [address]. Garcia [place] [address] [phone] Health Maintenance Due Date Last Done Comments [...] Effective Dates Phone Addre ss Type Group [place] CH[facility] CHILDRENS xxxxxxxxx 2019-Present Medicaid HEALTH PLAN - HEALTH MANAGED MEDICAID documented as of this encounter
--- OUTSIDE RECORDS SUMMARY | 2019-11-25 04:46 | XMS REPORT | Summary of Care ---
:1994 Author Organization [facility] Address [address] [place] [address] Care Team Providers Name Role Phone Pcp, Patient Does Not Have A Primary Care Provider +1-000-00 0-0000 Encounter Details Date Type Department Care Team Description 09/28/2019 Patient Secure [facility] Kaci Erwin MD [address] [phone] Allergies No Known Allergiesdocumented as of [...] Visit Obstetrics & Gynecology Farnaz Pérez MD [address] [place] [address] [address]. Garcia [place] [address] [phone] Health Maintenance Due Date Last Done Comments [...] Effective Dates Phone Addre ss Type Group [place] CHILDRENS [place] CHILDRENS xxxxxxxxx 2019-Present Medicaid HEALTH PLAN - HEALTH MANAGED MEDICAID documented as of this encounter
--- OUTSIDE RECORDS SUMMARY | 2019-11-25 04:46 | XMS REPORT | Summary of Care ---
:1994 Author Organization [facility] Address [address] [place] [address] Care Team Providers Name Role Phone Pcp, Patient Does Not Have A Primary Care Provider +1-000-00 0-0000 Encounter Details Date Type Department Care Team Description 09/28/2019 Patient Secure [facility] Kaci Erwin MD [address] [phone] Allergies No Known Allergiesdocumented as of [...] Visit Obstetrics & Gynecology Farnaz Pérez MD [address] [place] [address] [address]. [address] [place] [address] [phone] Health Maintenance Due Date Last Done Comments [...] Effective Dates Phone Addre ss Type Group [place] CHILDRENS xxxxxxxxx 2019-Present Medicaid HEALTH PLAN - HEALTH MANAGED MEDICAID documented as of this encounter
--- OUTSIDE RECORDS SUMMARY | 2019-11-25 04:47 | XMS REPORT | Summary of Care ---
:1994 Author Organization [facility] Address [address] [place] [address] Care Team Providers Name Role Phone Pcp, Patient Does Not Have A Primary Care Provider +1-000-00 0-0000 Marimar Alvarado MD Primary Care Provider Encounter Details Date Type Department Care Team Description 09/29/2019 Patient Secure Msg [facility] Women's Pérez, Farnaz Hall MD [facility]- [address], [place] [facility] [address] [place] [address] [place] [address] [phone] Allergies No Known Allergiesdocumented as of this encounter (statuses as of 11/05/2019) Medications Medication Sig Dispensed Refills Start Date End Date Status glucagon (GLUCAGON Inject 1 mg 1 mg 1 08/15/2019 Active EMERGENCY KIT, intravenously as HUMAN,) 1 mg needed injectionIndications (hypoglycemia). : Hypoglycemia insulin aspart U-100 Use via sliding 36 mL 1 08/24/2019 Active (NOVOLOG FLEXPEN scale TIDAC up to U-100 INSULIN) 100 max dose of 40 units unit/mL (3 mL) daily injectionIndications : Type 1 diabetes mellitus affecting in second trimester, antepartum vit Take by mouth. 0 A ctive calc,iron,folic ( VITAMIN ORAL) Insulin Glargine inject 30 Units 0 09/28/2019 Active (LANTUS SOLOSTAR under the skin U-100 INSULIN) 100 daily. unit/mL (3 mL) injection documented as of this encounter (statuses as of 11/05/2019) Active Problems Problem Noted Date Supervision of high risk in second trimester 07/29/2019 23 weeks gestation of 07/29/2019 Type 1 diabetes mellitus with microalbuminuria 017 LFTs abnormal 01/19/2017 Estimated Date of Delivery Comments Yes 02/10/2020 Based on Ultrasound documented as of this encounter (statuses as of 11/05/2019) Immunizations Name Administration Dates Next Due HEPATITIS [...] Treatment Date Type Specialty Care Team Description 11/07/2019 Routine Visit OB [facility] [place] Noelle Diallo, ELECTRICIAN CONSTRUCTOR SUPERVISOR [address] [place] [address] [phone] 11/07/2019 Telemedicine Visit OB [employer]ell[employer] Tru, Gustabo Hernandez [facility] 11/08/2019 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
--- OUTSIDE RECORDS SUMMARY | 2019-11-25 04:47 | XMS REPORT | Summary of Care ---
:1994 Author Organization [facility] Address [address] [place] [address] Care Team Providers Name Role Phone Pcp, Patient Does Not Have A Primary Care Provider +1-000-00 0-0000 Encounter Details Date Type Department Care Team Description 09/09/2019 Patient Secure Msg [facility] Women's PérezFarnaz MD [address] [facility] [address] [place] [address] [place] [address] [phone] Allergies No Known Allergiesdocumented as of this encounter (statuses as of 10/15/2019) Medications Medication Sig Dispensed Refills Start Date [...] as of this encounter (statuses as of 10/15/2019) Active Problems Problem Noted Date Supervision of high risk in second trimester 07/29/2019 19 weeks gestation of 07/29/2019 Type 1 diabetes mellitus with microalbuminuria 017 LFTs abnormal 01/19/2017 Estimated Date of Delivery Comments Yes 02/10/2020 Based on Ultrasound documented as of this encounter (statuses as of 10/15/2019) Immunizations Name Administration Dates Next Due HEPATITIS [...] Visit Obstetrics & Gynecology Farnaz Pérez MD [address] [place] [address] DR. Garcia [place] [address] 15 [phone] 11/18/2019 Tennis Professional Visit Obstetrics & Gynecology Ultrasound, A lesly [facility] 11/29/2019 Office Visit Endocrinology Diabetes & Denys Erwin MD [address] [address] 12/16/2019 Tennis Professional Visit Obstetrics & Gynecology Ultrasound, A lesly [facility] 01/13/2020 Tennis Professional Visit Obstetrics & Gynecology Ultrasound, A [facility] Health Maintenance Due Date Last Done Comments [...]
--- OUTSIDE RECORDS SUMMARY | 2019-11-25 04:47 | XMS REPORT | Summary of Care ---
:1994 Author Organization [facility] Address [address] [place] [address] Care Team Providers Name Role Phone Pcp, Patient Does Not Have A Primary Care Provider +1-000-00 0-0000 Marimar Alvarado MD Primary Care Provider Encounter Details Date Type Department Care Team Description 09/26/2019 Patient Secure Msg [facility] Women's Pérez, Farnaz Hall MD [facility]- [address], [place] [address] [place] [address] [place] [address] [phone] Allergies No Known Allergiesdocumented as of this encounter (statuses as of 10/29/2019) Medications Medication Sig Dispensed Refills Start Date [...] as of this encounter (statuses as of 10/29/2019) Active Problems Problem Noted Date Supervision of high risk in second trimester 07/29/2019 23 weeks gestation of 07/29/2019 Type 1 diabetes mellitus with microalbuminuria 017 LFTs abnormal 01/19/2017 Estimated Date of Delivery Comments Yes 02/10/2020 Based on Ultrasound documented as of this encounter (statuses as of 10/29/2019) Immunizations Name Administration Dates Next Due HEPATITIS [...] Type Specialty Care Team Description 11/07/2019 Routine OB Satellites Faculty, Ang Visit [facility] 11/18/2019 Aviation Survival Technician Visit Obstetrics & Gynecology Ultrasound, A lesly [facility] 11/29/2019 Office Visit Endocrinology Diabetes & Denys Erwin MD [facility] [address] [place] [address] [phone] 12/16/2019 Aviation Survival Technician Visit Obstetrics & Gynecology Ultrasound, A lesly [facility] 01/13/2020 Aviation Survival Technician Visit Obstetrics & Gynecology Ultrasound, A [facility] Health Maintenance Due Date Last [...] Effective Dates Phone Addre ss Type Group [place] CHILDRENS [place] CHILDRENS xxxxxxxxx 2019-Present Medicaid HEALTH PLAN - HEALTH MANAGED MEDICAID documented as of this encounter
--- OUTSIDE RECORDS SUMMARY | 2019-11-25 04:47 | XMS REPORT | Summary of Care ---
:1995 Author Organization [facility] Address [address] [place] [address] Care Team Providers Name Role Phone Pcp, Patient Does Not Have A Primary Care Provider +[id number] 0-0000 Reason for Referral (Routine) Status Reason Specialty Diagnoses / Referred By Referred To Procedures Contact Contact Authorized Maternal Diagnoses Supervision of high risk in second trimester 23 weeks gestation of Farnaz Pérez, Medicine Procedures CONSULT/REFERRAL MATERNAL MEDICINE FACULTY/FELLOW [address] [place] [id number] Reason for Visit Reason Comments ROUTINE VISIT Encounter Details Date Type Department Care Team Description 10/19/2019 Telemedicine Visit [facility] Farnaz Pérez Supervi jo of high risk in second trimester (Primary Dx); Women's MD 23 weeks gestation of ; [address] Type 1 diabetes mellitus with microalbuminuria [facility] [address], [address] [place] [phone] Allergies No Known Allergiesdocumented as of this encounter (statuses as of 10/20/2019) Medications Medication Sig Dispensed Refills Start Date [...] as of this encounter (statuses as of 10/20/2019) Active Problems Problem Noted Date Supervision of high risk in second trimester 07/29/2019 23 weeks gestation of 07/29/2019 Type 1 diabetes mellitus with microalbuminuria 017 LFTs abnormal 01/19/2017 Estimated Date of Delivery Comments Yes 02/10/2020 Based on Ultrasound documented as of this encounter (statuses as of 10/20/2019) Immunizations Name Administration Dates Next Due HEPATITIS [...] encounter Progress Notes Farnaz Pérez MD - 10/19/2019 9:45 AM CDT TELEHEALTH NOTE Verbal consent obtained from Patient: Sri Rosales for telehealth services provided below due to COVID-19 crises. Communication with patient was conducted via Telephone due to patient unable to obtain video call option. Location of Patient: Home Location of Provider: Office Date of Service: 10/20/2019 Chief Complaint: routine visit HPI: Sri Rosales is a 23 year old female @ 23w6d here for routine visit. Deniescontractions, vaginal bleeding, LOF, dysuria, or PIH symptoms. + active FM. Past Medical History: Diagnosis Date Diabetes mellitus type 1 diagnosed at 9 years old Elevated LFTs Type 1 diabetes mellitus without complication 01/19/2017 MEDICATIONS: No outpatient medications have been marked as taking for the 10/19/19 encounter (Telemedicine Visit) with Farnaz Pérez MD. ROS Denies fever, chills, chest pain, coughing, SOB, constipation, diarrhea, nausea, vomiting. Pain score: 0 TELEHEALTH EXAM Alert and answering/asking questions appropriately ASSESSMENT/ PLAN Sri Rosales is a 23 year old female with PMH as above presenting with: 1. Supervision of high risk in second trimester - CONSULT/REFERRAL MATERNAL MEDICINE FACULTY/FELLOW 2. 23 weeks gestation of - CONSULT/REFERRAL MATERNAL MEDICINE FACULTY/FELLOW 3. Type 1 diabetes mellitus with microalbuminuria See OB Summary Discussed about COVID-19/flu precautions. Social distancing, frequent hand washings, and to follow CDC recommendations discussed. Indications for testing discussed. After visit summary (AVS ) documentation will be available through [place] Therapist for this encounter. Farnaz Pérez MD 10/20/2019 12:54 AM documented in this encounter Plan of Treatment Date Type Specialty Care Team Description 10/27/2019 Telemedicine Visit OB Satellites Fellow, Guillermo Main 11/18/2019 Finance Attorney Visit Obstetrics & Gynecology Ultrasound, Kerry Main 11/29/2019 Office Visit Endocrinology Diabetes & Denys Erwin MD Metabolism [address] [place], [place] [phone] 12/16/2019 Finance Attorney Visit Obstetrics & Gynecology Ultrasound, Kerry Main 01/13/2020 Finance Attorney Visit Obstetrics & Gynecology Ultrasound, A lesly Main Health Maintenance Due Date Last Done Comments [...] se cond trimester - Primary Unspecified high-risk 23 weeks gestation of state, incidental Type 1 diabetes mellitus with microalbum inuria documented in this encounter Insurance Payer Benefit Plan / Subscriber ID Effective Dates Phone Addre ss Type Group [place] CH[place]DR[place] CH[place]DRENS xxxxxxxxx 2019-Present Medicaid HEALTH PLAN - HEALTH MANAGED MEDICAID [id number] documented as of this encounter
--- OUTSIDE RECORDS SUMMARY | 2019-11-25 04:47 | XMS REPORT | Summary of Care ---
:1995 Author Organization [facility] Address [address] [place] [id number] Care Team Providers Name Role Phone Pcp, Patient Does Not Have A Primary Care Provider +[phone] 0-0000 Reason for Visit Reason Comments Appointment dr segundo office called florin p t rinaldi to [facility], diabetes 23weeks Encounter Details Date Type Department Care Team Description [facility] (dr sanya Bradshaw [facility] office called florin pt [address] [facility] rinaldi to [facility], [place] [address] 23weeks ) [phone] Allergies No Known Allergiesdocumented as of this encounter (statuses as of 10/19/2019) Medications Medication Sig Dispensed Refills Start Date [...] as of this encounter (statuses as of 10/19/2019) Active Problems Problem Noted Date Supervision of high risk in second trimester 07/29/2019 19 weeks gestation of 07/29/2019 Type 1 diabetes mellitus with microalbuminuria 017 LFTs abnormal 01/19/2017 Estimated Date of Delivery Comments Yes 02/10/2020 Based on Ultrasound documented as of this encounter (statuses as of 10/19/2019) Immunizations Name Administration Dates Next Due HEPATITIS [...] Date Type Specialty Care Team Description 10/27/2019 Routine OB Satellites FellowGuillermo Rmchp Visit [facility] 11/18/2019 Basket Grader Visit Obstetrics & Gynecology Ultrasound, Kerry grace jerry 11/29/2019 Office Visit Endocrinology Diabetes & Denys Erwin MD Metabolism [address] [place], [place] [phone] 12/16/2019 Basket Grader Visit Obstetrics & Gynecology Ultrasound, Kerry grace [facility] 01/13/2020 Basket Grader Visit Obstetrics & Gynecology Ultrasound, Kerry grace [facility] Health Maintenance Due Date Last Done [...] Effective Dates Phone Addre ss Type Group [place] CHILDR[place] CHILDRENS xxxxxxxxx 2019-Present Medicaid HEALTH PLAN - HEALTH MANAGED MEDICAID documented as of this encounter
--- OUTSIDE RECORDS SUMMARY | 2019-11-25 04:48 | XMS REPORT | Summary of Care ---
:1995 Author Organization [facility] Address [address] [place] [address] Care Team Providers Name Role Phone Jonah Alvarado MD Primary Care Provider Reason for Visit Reason Comments Care Encounter Details Date Type Department Care Team Description 11/07/2019 Routine [facility] RMCait- Noelle Diallo igh-risk supervision, second trimester (Primary Dx); Visit SYEDA Pink Primigravida in first trimester; [address] Type 1 diabetes mellitus aff ecting in second trimester, antepartum [place] [address] [place], [place] [phone] Allergies No Known Allergiesdocumented as of this encounter (statuses as of 11/07/2019) Medications Medication Sig Dispensed Refills Start Date [...] as of this encounter (statuses as of 11/07/2019) Active Problems Problem Noted Date Type 1 diabetes mellitus with microalbuminuria 017 documented as of this encounter (statuses as of 11/07/2019) Resolved Problems Problem Noted Date Resolved Date Primigravida in first trimester 11/07/2019 11/07/19 20 Type 1 diabetes mellitus affecting in second 11/0611/07/2019 trimester, antepartum High-risk supervision, second trimester 07/29/2019 11/07/2019 23 weeks gestation of 07/29/2019 11/07/19 20 LFTs abnormal 01/19/2017 11/07/2019 documented as of this encounter (statuses as of 11/07/2019) Immunizations Name Administration Dates Next Due HEPATITIS [...] Alcohol Use Drinks/Week oz/Week Comments Not Currently Sex Assigned at Date Recorded Not on file Job Start Date Occupation Industry Not on file Not on file Not on file Travel History Travel Start Travel End No recent travel history available. COVID-19 Exposure Response Date Recorded In the last month, have you been in contact with No / Unsure 11/07/2019 8:30 AM CDT someone who was confirmed or suspected to have Coronavirus / COVID-19? documented as of this encounter Last Filed Vital Signs Vital Sign Reading Time Taken Comments Blood Pressure 111/74 11/07/2019 8:30 AM CDT Pulse 89 11/07/2019 8:30 AM CDT Temperature 36.8 C (98.2 F) 11/07/2019 8:30 AM CDT Respiratory Rate 16 11/07/2019 8:30 AM CDT Oxygen Saturation - - Inhaled Oxygen Concentration - - Weight 74.5 kg (164 lb 4 oz) 11/07/2019 8:30 AM CDT Height 175.3 cm (5' 9") 11/07/2019 8:30 AM CDT Body Mass Index 24.26 11/07/2019 8:30 AM CDT documented in this encounter Progress Notes Noelle Diallo, [employer]WAY TRAIN DRIVER - 11/07/2019 8:00 AM CDT Chief complaint: Chief Complaint Patient presents with Care HPI CC: Follow Up Visit Sri Rosales is a 23 year old, , /White female. Patient's last menstrual period was 03/25/2019. She is 26w3d with an intrauterine . Her estimated date of delivery is 02/10/2020, by Ultrasound. She has no complaints today. She reports +FM and denies contractions, LOF and bleeding today. Patient denies current or past physical, sexual or emotional abuse. Histories OB History Para Term AB Living 1 SAB TAB Ectopic Multiple Live Births # Outcome Date GA Lbr Harinder/2nd Weight Sex Delivery Anes PTL Lv 1 Past Medical History: Diagnosis Date Diabetes mellitus type 1 diagnosed at 9 years old Elevated LFTs Type 1 diabetes mellitus affecting in second trimester, antepartum 11/07/2019 Type 1 diabetes mellitus without complication 01/19/2017 Family History Problem Relation Age of Onset No Significant Medical Problems Mother Family Status Relation Name Status Fa Other unknown Mo Alive No past surgical history on file. Social History Socioeconomic History Marital status: Single [...] file Gets together: Not on file Attends adventist service: Not on file Active member of [...] Activity Yes Partners: Male control/protection: None Labs Labs are pending. Radiology Radiology pending. Allergies Sri has No Known Allergies. Medications Sri has a current medication list which includes the following prescription(s): aspirin, insulin glargine, vit calc,iron,folic, insulin aspart u-100, and glucagon. Review of Systems Eyes: Negative for visual disturbance. Cardiovascular: Negative for leg swelling. Gastrointestinal: Negative for abdominal pain, nausea and vomiting. Genitourinary: Negative for vaginal bleeding, vaginal discharge and pelvic pain. Neurological: Negative for headaches. BP 111/74 (BP Location: Right arm, Patient Position: Sitting, BP CUFF SIZE: Adult Medium) | Pulse 89 | Temp 36.8 C (98.2 F) (Oral) | Resp 16 | Ht 5' 9" (1.753 m) | Wt 164 lb 4 oz (74.5 kg) | LMP 03/25/2019 | BMI 24.26 kg/m Pregravid BMI: 22.7 Physical Exam PHYSICAL: General Exam: Neurological: Normal Abdomen: Normal Extremities: Normal Pelvic Exam: Uterus: 27cm Weeks Assessment/Plan High-risk supervision, second trimester (primary encounter diagnosis) Primigravida in first trimester Comment: Routine Visit Plan: GLYCOSYLATED HEMOGLOBIN (A1C), Free T4 by [facility]. Dialysis, THYROID STIMULATING HORMONE, THYROXINE, TOTAL, CBC WITH DIFF, COMP. METABOLIC PANEL (65836), CBC WITH DIFFERENTIAL, POCT URINALYSIS GLUCOSE & PROTEIN, CBC WITH DIFF, GC & CHLAMYDIA AMPLIFIED ASSAY, HEPATITIS B SURFACE ANTIGEN, HIV 1/2 AG-AB WITH REFLEX, WORKUP, BLOOD BANK, POCT URINALYSIS W SPECIFIC GRAVITY, RUBELLA SCREEN (CHIN) IGG, GALV ONLY - SYPHILIS IGG/IGM, URINE CULTURE, VZV ANTIBODY SCREEN, CBC WITH DIFF, GC & CHLAMYDIA AMPLIFIED ASSAY, HEPATITIS B SURFACE ANTIGEN, HIV 1/2 AG-AB WITH REFLEX, RUBELLA SCREEN (CHIN) IGG, GALV ONLY - SYPHILIS IGG/IGM, URINE CULTURE, VZV ANTIBODY SCREEN, CBC WITH DIFFERENTIAL, PROTEIN QUANT U/24H, CREATININE U 24 HR, POCT URINALYSIS W/O SPECIFIC GRAVITY, WORKUP, BLOOD BANK Denies zika virus risk, signs and symptoms such as fever,rash,joint pain, conjunctivitis (red eyes),muscle pain, headaches; outside [place] travel to areas affected by zika, and FOB exposure to zika. Educated on use of mosquito repellent. Visit/Consultation completed by Dr. Encinas, [place] provider. Type 1 diabetes mellitus affecting in second trimester, antepartum Comment: sent to [facility] nurse, will be reviewed by Dr. Encinas Plan: GLYCOSYLATED HEMOGLOBIN (A1C), CBC WITH DIFF, COMP. METABOLIC PANEL (95451), CBC WITH DIFFERENTIAL Return to clinic to be determine by Dr. Encinas. Discussed treatment options. Medications as ordered. Reviewed patient instructions and provided printed copy. This visit did not involve counseling and coordination that comprised more than 50% of the visit time. SYEDA Kumar 11/07/2019 10:31 AM documented in this encounter Plan of Treatment Date Type Specialty Care Team Description 11/08/[address] Visit Maternal Medicine 11/14/2019 Routine OB Satellites Faculty, Gustabo Visit [facility] 11/18/[address] Visit Obstetrics & Gynecology Ultrasound, Kerry Main 11/29/2019 Office Visit Endocrinology Diabetes & Denys Erwin MD Metabolism [address] [place], [place] [phone] 12/16/[address] Visit Obstetrics & Gynecology Ultrasound, A lesly Main 01/13/[address] Visit Obstetrics & Gynecology Ultrasound, A lesly [facility] Name Type Priority Associated Diagnoses Date/Ti me GLYCOSYLATED HEMOGLOBIN LAB Routine Type 1 diabetes 0 11/07/2019 8:29 AM (A1C) mellitus affecting CDT in second trimester, antep artum High-risk supervision, second trimester Free T4 by [facility] Dialysis LAB Routine High-risk preg maegan 11/07/2019 8:29 AM supervision, second CDT trimester THYROID STIMULATING LAB Routine High-risk 0 11/07/2019 8:29 AM HORMONE supervision, second CDT trimester THYROXINE, TOTAL LAB Routine High-risk 10/27 8:29 AM supervision, second CDT trimester CBC WITH DIFF LAB Routine Type 1 diabetes 11/07/2019 8:29 AM mellitus affecting CDT in second trimester, antep artum High-risk supervision, second trimester COMP. METABOLIC PANEL LAB Routine Type 1 diabetes 04/2020 8:29 AM (91516) mellitus affecting CDT in second trimester, antep artum High-risk supervision, second trimester CBC WITH DIFFERENTIAL LAB Routine Type 1 diabetes 04/2020 8:29 AM mellitus affecting CDT in second trimester, antep artum High-risk supervision, second trimester CBC WITH DIFF LAB Routine High-risk 020 9:16 AM supervision, second CDT trimester GC & CHLAMYDIA AMPLIFIED LAB Routine High-risk pregna ncy 11/07/2019 9:16 AM ASSAY supervision, second CDT trimester HEPATITIS B SURFACE LAB Routine High-risk 0 11/07/2019 9:16 AM ANTIGEN supervision, second CDT trimester HIV 1/2 AG-AB WITH REFLEX LAB Routine High-risk pregn salima 11/07/2019 9:16 AM supervision, second CDT trimester RUBELLA SCREEN (CHIN) IGG LAB Routine High-risk preg maegan 11/07/2019 9:16 AM supervision, second CDT trimester GALV ONLY - SYPHILIS LAB Routine High-risk 11/07/2019 9:16 AM IGG/IGM supervision, second CDT trimester URINE CULTURE LAB Routine High-risk 020 9:16 AM supervision, second CDT trimester VZV ANTIBODY SCREEN LAB Routine High-risk 0 11/07/2019 9:16 AM supervision, second CDT trimester CBC WITH DIFFERENTIAL LAB Routine High-risk 11/07/2019 9:16 AM supervision, second CDT trimester Name Type Priority Associated Diagnoses Order S chedule CBC WITH DIFF LAB Routine High-risk Expecte d: 11/07/2019, supervision, second Expires: 11/06/2020 trimester GC & CHLAMYDIA AMPLIFIED LAB Routine High-risk pregna ncy Expected: 11/07/2019, ASSAY supervision, second Expires: 11/06/2020 trimester HEPATITIS B SURFACE LAB Routine High-risk E xpected: 11/07/2019, ANTIGEN supervision, second Expires: 11/06/2020 trimester HIV 1/2 AG-AB WITH LAB Routine High-risk Ex pected: 11/07/2019, REFLEX supervision, second Expires: 11/06/2020 trimester WORKUP, BLOOD LAB Routine High-risk pregnanc y Expected: 11/07/2019, BANK supervision, second Expires: 11/06/2020 trimester POCT URINALYSIS W LAB Routine High-risk 20 Occurrences starting SPECIFIC GRAVITY supervision, second 10/27 until trimester 09/02/2020 RUBELLA SCREEN (CHIN) LAB Routine High-risk pregnanc y Expected: 11/07/2019, IGG supervision, second Expires: 11/06/2020 trimester GALV ONLY - SYPHILIS LAB Routine High-risk Expected: 11/07/2019, IGG/IGM supervision, second Expires: 11/06/2020 trimester URINE CULTURE LAB Routine High-risk Expecte d: 11/07/2019, supervision, second Expires: 11/06/2020 trimester VZV ANTIBODY SCREEN LAB Routine High-risk E xpected: 11/07/2019, supervision, second Expires: 11/06/2020 trimester PROTEIN QUANT U/24H LAB Routine High-risk E xpected: 11/07/2019, supervision, second Expires: 11/06/2020 trimester CREATININE U 24 HR LAB Routine High-risk Ex pected: 11/07/2019, supervision, second Expires: 11/06/2020 trimester Health Maintenance Due Date Last Done [...] encounter Procedures Procedure Name Priority Date/Time Associated Comments Diagnosis POCT URINALYSIS W/O Routine 11/07/2019 9:15 AM High-risk preg maegan Results for this SPECIFIC GRAVITY CDT supervision, second proc edure are in trimester the results section. POCT URINALYSIS Routine 11/07/2019 9:14 AM High-risk pregnanc y Results for this GLUCOSE & PROTEIN CDT supervision, second pro cedure are in trimester the results section. documented in this encounter Results POCT URINALYSIS W/O SPECIFIC GRAVITY (11/07/2019 9:15 AM CDT) Pathologist Sig nature POCT PH U 5 5 - 8 mg/dl POCT U LEUK EST neg Negative - Negative POCT U NIT neg Negative - Negative POCT U PROT trace Negative - Negative POCT U GLU 1+ Negative - Negative POCT U KETONE neg Negative - Negative POCT U BLD neg Negative - Negative Specimen Urine - URINE, CLEAN CATCH POCT URINALYSIS GLUCOSE & PROTEIN (11/07/2019 9:14 AM CDT) Pathologist Sig nature POCT U PROT trace Negative - Negative POCT U GLU 1+ Negative - Negative Specimen Urine - URINE, CLEAN CATCH documented in this encounter Visit Diagnoses Diagnosis High-risk supervision, second trimester - Primary Primigravida in first trimester Type 1 diabetes mellitus affecting pregn salima in second trimester, antepartum documented in this encounter Insurance Payer Benefit Plan / Subscriber ID Effective Dates Phone Addre ss Type Group [place] CHILDRENS [place] CHILDRENS xxxxxxxxx 2019-Present Medicaid HEALTH PLAN - HEALTH MANAGED MEDICAID [id number] documented as of this encounter
--- OUTSIDE RECORDS SUMMARY | 2019-11-25 04:48 | XMS REPORT | Summary of Care ---
:1994 Author Organization [facility] Address [address] [place] [address] Care Team Providers Name Role Phone Jonah Alvarado MD Primary Care Provider Reason for Visit Reason Comments MFM Visit (Routine) Status Reason Specialty Diagnoses / Referred By Referred To Procedures Contact Contact Closed Maternal Diagnoses Supervision of high risk in second trimester 23 weeks gestation of Farnaz Pérez MD Medicine Procedures CONSULT/REFERRAL MATERNAL MEDICINE FACULTY/FELLOW [address] [place] [address] [address] [place] [address] Encounter Details Date Type Department Care Team Description 11/07/2019 Telemedicine Visit [facility]- Evaristo Encinas MD 301 [facility] [id number] [place] [address] Type 1 diabetes [place] Faculty, [facility] mellitus with [address] [facility] microalbuminuria [place], [place] (Primary Dx) [id number] Allergies No Known Allergiesdocumented as of this encounter (statuses as of 11/07/2019) Medications Medication Sig Dispensed Refills Start Date End Date Status glucagon (GLUCAGON Inject 1 mg 1 mg 1 08/15/2019 Active EMERGENCY KIT, HUMAN,) intravenously as 1 mg needed injectionIndications: (hypoglycemia). Hypoglycemia insulin aspart U-100 Use via sliding 36 mL 1 08/24/2019 Active (NOVOLOG FLEXPEN U-100 scale TIDAC up to INSULIN) 100 unit/mL max dose of 40 (3 mL) units daily injectionIndications: Type 1 diabetes mellitus affecting in second trimester, antepartum vit Take by mouth. 0 A ctive calc,iron,folic ( VITAMIN ORAL) Insulin Glargine inject 30 Units 0 09/28/2019 Active (LANTUS SOLOSTAR U-100 under the skin INSULIN) 100 unit/mL daily. (3 mL) injection aspirin 81 mg EC Take 1 tablet by 30 tablet 4 11/07/2019 Active tabletIndications: mouth daily. Type 1 diabetes mellitus with microalbuminuria documented as of this encounter (statuses as [...] on filedocumented in this encounter Progress Notes Jenn Encinas MD - 11/07/2019 9:00 AM CDT TELEHEALTH NOTE Verbal consent obtained from Patient: Sri Rosales due to the COVID-19 pandemic for telehealth services provided below. Communication with patient was conducted via Telephone due to patient unable to obtain video call option. Location of Patient: Home Location of Provider: [facility] Date of Service: 11/07/2019 Chief Complaint: MFM vsiit HPI: Sri Rosales is a 23 year old female with Past Medical History: Diagnosis Date Diabetes mellitus type 1 diagnosed at 9 years old Elevated LFTs Type 1 diabetes mellitus affecting in second trimester, antepartum 11/07/2019 Type 1 diabetes mellitus without complication 01/19/2017 MEDICATIONS: Outpatient Medications Marked as Taking for the 11/07/19 encounter (Telemedicine Visit) with Faculty,Gustabo Hernandez [facility] Medication Sig Dispense Refill aspirin 81 mg EC tablet Take 1 tablet by mouth daily. 30 tablet 4 ROS neg TELEHEALTH EXAM none ASSESSMENT/ PLAN Sri Rosales is a 23 year-old G1 at 26+3 weeks by 12 week sono. 1. Type I DM with microalbuminuria Diagnosed at age 9. Was being managed by an psychiatric mental health nurse at [facility]. Her PVT doc, Beto, recommended that she be transferred to us for care. A1c was 11 on 04/2019 and now 6.7 on 07/2019. Start LDA. Needs24 hour urine.Taking lantus 30 units qhs (11pm-1am due to her job). Wake up around noon and takes fasting. Eats first meal between 11am -12pm. Takes Novolog according to what her fasting is. Then takesaccucheck 2-3 hours later. Next meal is dinner 8pm. Takes novolog based on what she is going to eat at dinner. Snack between her first meal and second meal. Her sugars are all over the place and she istaking them randomly. Her second dose of novolog is around 4 pm, which she considers a "snack". Pt ys she is on leave now from work. I have advised her to come to [facility] for admission to get sugars under control. I cannot make any sense of what she is doing. She said she needs to speak with her first. I told her he can call me. 2. NIPT low risk. MSAFP wnl. TFTs wnl 08/17. Last formal sono 09/20. Will get a growth this week. 3. CF carrier was tested. He is neg. 4. BMI 24. Last telemed visit with Pérez on 10/18. Last telemed visit with endocrine 09/27. Last in person visit 08/22 with Pérez. Last VSS 08/22. Pt Needs in person visit 11/06 with VSS. Pérez wants to transfer care to us. Has sono for growth tomorrow. Get initial labs. After visit summary (AVS ) documentation will be available through [email or web address] for this encounter. A total of 25 minutes was spent on the Telephone due to patient unable to obtain video call option. Jenn Encinas MD documented in this encounter Plan of Treatment Date Type Specialty Care Team Description 11/08/2019 Personnel Technician Visit Maternal Medicine 11/18/2019 Personnel Technician Visit Obstetrics & Gynecology Ultrasound, A lesly Mfjerry 11/29/2019 Office Visit Endocrinology Diabetes & Denys Erwin MD Metabolism [facility] [place] [address] [phone] 12/16/2019 Personnel Technician Visit Obstetrics & Gynecology Ultrasound, A lesly Mfjerry 01/13/2020 Personnel Technician Visit Obstetrics & Gynecology Ultrasound, A lesly Mfm Name Type Priority Associated Diagnoses Order S chedule PROTEIN QUANT U/24H LAB Routine Type 1 diabetes melli tus Expected: with microalbuminuria 2019, Expires: 2020 CBC with Differential LAB Routine Type 1 diabetes ronni litus Expected: with microalbuminuria 2019, Expires: 2020 VZV ANTIBODY SCREEN LAB Routine Type 1 diabetes melli tus Expected: with microalbuminuria 2019, Expires: 2020 RUBELLA SCREEN (CHIN) LAB Routine Type 1 diabetes me llitus Expected: IGG with microalbuminuria 2019, Expires: 2020 WORKUP, BLOOD LAB Routine Type 1 diabetes me llitus Expected: BANK with microalbuminuria 2019, Expires: 2020 HIV 1/2 AG-AB WITH LAB Routine Type 1 diabetes mellit us Expected: REFLEX with microalbuminuria 2019, Expires: 2020 GALV ONLY - SYPHILIS LAB Routine Type 1 diabetes andreia itus Expected: IGG/IGM with microalbuminuria 2019, Expires: 2020 HEPATITIS B SURFACE LAB Routine Type 1 diabetes melli tus Expected: ANTIGEN with microalbuminuria 2019, Expires: 2020 GC & CHLAMYDIA AMPLIFIED LAB Routine Type 1 diabetes mellitus Expected: ASSAY with microalbuminuria 2019, Expires: 2020 Glycosylated Hemoglobin LAB Routine Type 1 diabetes mellitus Expected: (A1C) with microalbuminuria 2019, Expires: 2020 Health Maintenance Due Date Last Done Comments [...] Visit Diagnoses Diagnosis 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
--- OUTSIDE RECORDS SUMMARY | 2019-11-25 04:49 | XMS REPORT | Summary of Care ---
:1994 Author Organization [facility] Address [address] [place] [address] Care Team Providers Name Role Phone Jonah Alvarado MD Primary Care Provider Encounter Details Date Type Department Care Team Description 11/07/2019 Orders Only [facility] Doctor Unassigned, No 301 [facility] [place] [phone] [place] [address] Allergies No Known Allergiesdocumented as of this [...] Date Type Specialty Care Team Description 11/08/2019 Factory Clerk Visit Maternal Medicine 11/14/2019 Routine OB Satellites Faculty, Ang Visit [facility] 11/18/2019 Factory Clerk Visit Obstetrics & Gynecology Ultrasound, Kerry grace jerry 11/29/2019 Office Visit Endocrinology Diabetes & Denys Erwin MD [facility] [address] [place] [address] 12/16/2019 Factory Clerk Visit Obstetrics & Gynecology Ultrasound, Kerry Main 01/13/2020 Factory Clerk Visit Obstetrics & Gynecology Ultrasound, A lesly Mfm Health Maintenance Due Date Last Done Comments [...] Name Priority Date/Time Associated Diagnosis Comme nts PATIENT QUESTIONNAIRE Routine 11/07/2019 12:01 AM CDT documented in this encounter Results Not on filedocumented in this encounter Insurance Payer Benefit Plan / Subscriber ID Effective Dates Phone Addre ss Type Group [place] xxxxxxxxx 2019-Present Medicaid HEALTH PLAN - HEALTH MANAGED MEDICAID documented as of this encounter
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
--- OUTSIDE RECORDS SUMMARY | 2019-11-25 04:49 | XMS REPORT | Summary of Care ---
:1994 Author Organization [facility] Address [address] [place] [address] Care Team Providers Name Role Phone Jonah Alvarado MD Primary Care Provider Reason for Referral (Routine) Status Reason Specialty Diagnoses / Procedures Referred By Meng martinezed To Contact Contact New Request Maternal Diagnoses Type 1 diabetes mellitus with microalbuminuria Jenn Encinas Medicine Procedures CONSULT MATERNAL MEDICINE ULTRASOUND MD Jerry [address] [address] Reason for Visit Reason Comments MFM Visit (Routine) Status Reason Specialty Diagnoses / Referred By Referred To Procedures Contact Contact Closed Maternal Diagnoses Supervision of high risk in second trimester 23 weeks gestation of Farnaz Pérez MD Medicine Procedures CONSULT/REFERRAL MATERNAL MEDICINE FACULTY/FELLOW [address] [place] [address] Nathan [address] [place] [address] Encounter Details Date Type Department Care Team Description 11/07/2019 Telemedicine Visit [facility]- Evaristo Encinas MD [address] [address] Type 1 diabetes Melvin Gustabo [facility] Mfm mellitus with [address] microalbuminuria [place], [place] (Primary Dx) [phone] Allergies No Known [...] Location of Patient: Home Location of Provider: [facility] Date of Service: 11/07/2019 Chief Complaint: MFM [...] 11/07/19 encounter (Telemedicine Visit) with Faculty,Gustabo Hernandez [facility] Medication Sig Dispense Refill aspirin 81 mg EC tablet Take 1 tablet by mouth daily. 30 tablet 4 ROS neg TELEHEALTH EXAM none ASSESSMENT/ PLAN Sri Rosales is a 23 year-old G1 at 26+3 weeks by 12 week sono. 1. Type I DM with microalbuminuria Diagnosed at age 9. Was being managed by an warranty coordinator at [facility]. Her PVT doc, Pérez, recommended that she be transferred to us [...] pm, which she considers a "snack". Pt sa ibanez she is on leave now from work. I have advised her to come to [facility] for admission to get sugars under control. [...] (AVS ) documentation will be available through [employer] for this encounter. A total of 25 minutes was spent on the Telephone due to patient unable to obtain video call option. Jenn Encinas MD documented in this encounter Plan of Treatment Date Type Specialty Care Team Description 11/08/2019 Mechanic Recovery Visit Maternal Medicine 11/14/2019 Routine OB Satellites Faculty, Gustabo Visit [facility] 11/18/2019 Mechanic Recovery Visit Obstetrics & Gynecology Ultrasound, A lesly [facility] 11/29/2019 Office Visit Endocrinology Diabetes & Denys Erwin MD Metabolism [address] [place] [address] 12/16/2019 Mechanic Recovery Visit Obstetrics & Gynecology Ultrasound, A lesly jerry 01/13/2020 Mechanic Recovery Visit Obstetrics & Gynecology Ultrasound, A lesly jerry Name Type Priority Associated Diagnoses Order S chedule PROTEIN QUANT U/24H LAB Routine Type 1 diabetes melli turanjit Expected: with microalbuminuria 2019, Expires: 2020 CBC [...] Dates Phone Addre ss Type Group [facility] xxxxxxxxx 2019-Present Medicaid HEALTH PLAN - HEALTH MANAGED MEDICAID [id number] 1 documented as of this encounter
--- OUTSIDE RECORDS SUMMARY | 2019-11-25 04:49 | XMS REPORT | Summary of Care ---
:1994 Author Organization [facility] Address [address] [place] [address] Care Team Providers Name Role Phone Jonah Alvarado MD Primary Care Provider Reason for Referral (Routine) Status Reason Specialty Diagnoses / Procedures Referred By Meng chavezerred To Contact Contact Closed Maternal Diagnoses Type 1 diabetes mellitus with microalbuminuria Jenn Encinas Medicine Procedures CONSULT MATERNAL MEDICINE ULTRASOUND MD Marimar [address] [address] Reason for Visit Reason Comments MFM Visit (Routine) Status Reason Specialty Diagnoses / Referred By Referred To Procedures Contact Contact Closed Maternal Diagnoses Supervision of high risk in second trimester 23 weeks gestation of Farnaz Pérez MD Medicine Procedures CONSULT/REFERRAL MATERNAL MEDICINE FACULTY/FELLOW [address] [place] [address] [address] [place] [address] Encounter Details Date Type Department Care Team Description 11/07/2019 Telemedicine Visit [facility]- Evaristo Encinas MD [address] [address] Type 1 diabetes [place] Gustabo Ott [facility] Mfm mellitus with [address] microalbuminuria [place], [place] (Primary Dx) [address] Allergies No Known Allergiesdocumented as of this encounter (statuses as of 11/09/2019) Medications Medication Sig Dispensed Refills Start Date [...] as of this encounter (statuses as of 11/09/2019) Active Problems Problem Noted Date Type 1 diabetes mellitus with microalbuminuria 017 documented as of this encounter (statuses as of 11/09/2019) Resolved Problems Problem Noted Date Resolved Date Primigravida in first trimester 11/07/2019 11/07/19 20 Type 1 diabetes mellitus affecting in second 11/0611/07/2019 trimester, antepartum High-risk supervision, second trimester 07/29/2019 11/07/2019 23 weeks gestation of 07/29/2019 11/07/19 20 LFTs abnormal 01/19/2017 11/07/2019 documented as of this encounter (statuses as of 11/09/2019) Immunizations Name Administration Dates Next Due HEPATITIS [...] Location of Patient: Home Location of Provider: [facility] Date of Service: 11/07/2019 Chief Complaint: MFM [...] 11/07/19 encounter (Telemedicine Visit) with Faculty,Gustabo Hernandez [facility] Medication Sig Dispense Refill aspirin 81 mg EC tablet Take 1 tablet by mouth daily. 30 tablet 4 ROS neg TELEHEALTH EXAM none ASSESSMENT/ PLAN Sri Rosales is a 23 year-old G1 at 26+3 weeks by 12 week sono. 1. Type I DM with microalbuminuria Diagnosed at age 9. Was being managed by an pitch filler at [facility]. Her PVT doc, Pérez, recommended that she [...] I have advised her to come to [facility] for admission to get sugars under control. [...] (AVS ) documentation will be available through [employer] for this encounter. A total of 25 minutes was spent on the Telephone due to patient unable to obtain video call option. Jenn Encinas MD documented in this encounter Plan of Treatment Date Type Specialty Care Team Description 11/14/2019 Routine OB Satellites Faculty, Ang Visit [facility] 11/29/2019 Office Visit Endocrinology Diabetes & Denys Erwin MD Metabolism [address] [place] [address] [phone] 12/06/2019 Pulmonologist/Intensivist Visit Maternal Medicine 01/03/2020 Pulmonologist/Intensivist Visit Maternal Medicine 01/31/2020 Pulmonologist/Intensivist Visit Maternal Medicine Name Type Priority Associated Diagnoses Order S chedule PROTEIN QUANT U/24H LAB Routine Type 1 diabetes chuy kramer Expected: with microalbuminuria 2019, Expires: 2020 CBC [...] Addre ss Type Group [place] CHILDRENS [place] CHILDRENS xxxxxxxxx 2019-Present Medicaid HEALTH PLAN - HEALTH MANAGED MEDICAID [id number] 1 documented as of this encounter
--- OUTSIDE RECORDS SUMMARY | 2019-11-25 04:49 | XMS REPORT | Summary of Care ---
:1994 Author Organization [facility] Address [address] [place] [address] Care Team Providers Name Role Phone Jonah Alvarado MD Primary Care Provider Reason for Visit Reason Comments Other stated she may have to be ho spitalized per televisit on 11/07/2019 Encounter Details Date Type Department Care Team Description 11/08/2019 Telephone [facility]- Faculty, Ang Other (st ated she may [facility] Mfm have to be hospitalized [address] [facility] [place] [address] 11/07/2019) [phone] Allergies No Known Allergiesdocumented as of this [...] of 11/09/2019) Active Problems Problem Noted Date Maternal varicella, [...] Date Type Specialty Care Team Description 11/14/2019 Telemedicine Visit OB Satellites Faculty, Gustabo Main 11/29/2019 Office Visit Endocrinology Diabetes & Denys Erwin MD Metabolism [address] [place] [address] [phone] 12/06/2019 Supervisor Car And Yard Visit Maternal Medicine 01/03/2020 Supervisor Car And Yard Visit Maternal Medicine 01/31/2020 Supervisor Car And Yard Visit Maternal Medicine Health Maintenance Due Date [...] Effective Dates Phone Addre ss Type Group [place] CHILDRENS xxxxxxxxx 2019-Present Medicaid HEALTH PLAN - HEALTH MANAGED MEDICAID documented as of this encounter
--- OUTSIDE RECORDS SUMMARY | 2019-11-25 04:49 | XMS REPORT | Summary of Care ---
:1994 Author Organization [facility] Address [address] [place] [address] Care Team Providers Name Role Phone Jonah Alvarado MD Primary Care Provider Reason for Visit Reason Comments M Visit Encounter Details Date Type Department Care Team Description [facility]2019 [facility] Visit [address] [id number] [address] [place] [address] [place] [address] Allergies No Known Allergiesdocumented as of this [...] encounter Progress Notes Jenn Encinas MD - 11/09/2019 6:38 AM CDTI advised patient that she should be hospitalized for diabetes control on thursdaynovember 06. She said her would need to call me first. They never called. Will have galilea moulton call her again todayto encourage her tocome in. documented in this encounter Plan of Treatment Date Type Specialty Care Team Description 11/14/2019 Routine OB Satellites Faculty, Ang Visit [facility] m 11/29/2019 Office Visit Endocrinology Diabetes & Denys Erwin MD Metabolism [address] [place] [address] [phone] 12/06/2019 Auto Camp Attendant Visit Maternal Medicine 01/03/2020 Auto Camp Attendant Visit Maternal Medicine 01/31/2020 Auto Camp Attendant Visit Maternal Medicine Health Maintenance Due Date [...]
--- OUTSIDE RECORDS SUMMARY | 2019-11-25 04:50 | XMS REPORT | Summary of Care ---
:1994 Author Organization [facility] Address [address] [place] [address] Care Team Providers Name Role Phone Jonah Alvarado MD Primary Care Provider Reason for Visit Reason Comments Abnormal Lab Chlamydia Encounter Details Date Type Department Care Team Description 11/09/2019 Telephone [facility]- Noelle Diallo Ab normal Lab [place] DESIGN ASSISTANT (Chlamydia) 110[address] [facility] [address] [place] [id number] 15 [phone] Allergies No Known Allergiesdocumented as of [...] daily. Type 1 diabetes mellitus with microalbuminuria azithromycin 500 mg Take 2 tablets by 2 tablet 0 11/09/2019 0 Active tabletIndications: mouth daily for 1 0 Chlamydia day. documented as of this encounter (statuses as [...] Diabetes & Denys Erwin MD Metabolism [address] [place] [address] [phone] 12/06/2019 Senior Process Analyst Visit Maternal Medicine 01/03/2020 Senior Process Analyst Visit Maternal Medicine 01/31/2020 Senior Process Analyst Visit Maternal Medicine Health Maintenance Due Date [...] filedocumented in this encounter Visit Diagnoses Diagnosis Chlamydia - Primary Other specified chlamydial infection, in conditions classified elsewhere and of unspecified site documented in this encounter Insurance Payer Benefit Plan / Subscriber ID Effective Dates Phone Addre ss Type Group [place] xxxxxxxxx 2019-Present Medicaid HEALTH PLAN - HEALTH MANAGED MEDICAID documented as of this encounter
--- OUTSIDE RECORDS SUMMARY | 2019-11-25 04:50 | XMS REPORT | Summary of Care ---
:1995 Author Organization [facility] Address [address] [place] [address] Care Team Providers Name Role Phone Jonah Alvarado MD Primary Care Provider Reason for Visit Reason Comments Results Encounter Details Date Type Department Care Team Description 11/09/2019 Telephone [facility]- A shay Ott, Gustabo [facility] Results [address] [place] [address] Allergies No Known Allergiesdocumented as of this encounter (statuses as of 11/10/2019) Medications Medication Sig Dispensed Refills Start Date [...] as of this encounter (statuses as of 11/10/2019) Active Problems Problem Noted Date Chlamydia 11/09/2019 Maternal varicella, non-immune 11/08/2019 Overview: Address in Type 1 diabetes mellitus with microalbuminuria 017 documented as of this encounter (statuses as of 11/10/2019) Resolved Problems Problem Noted Date Resolved Date Primigravida in first trimester 11/07/2019 11/07/19 20 Type 1 diabetes mellitus affecting in second 11/0611/07/2019 trimester, antepartum High-risk supervision, second trimester 07/29/2019 11/07/2019 23 weeks gestation of 07/29/2019 11/07/19 20 LFTs abnormal 01/19/2017 11/07/2019 documented as of this encounter (statuses as of 11/10/2019) Immunizations Name Administration Dates Next Due HEPATITIS [...] Diabetes & Denys Erwin MD Metabolism [address] [place] [address] [phone] 12/06/2019 Swamper Visit Maternal Medicine 01/03/2020 Swamper Visit Maternal Medicine 01/31/2020 Swamper Visit Maternal Medicine Health Maintenance Due Date Last Done Comments PNEUMOCOCCAL 0-64 YEARS COMBINED 2000 SERIES (1 of 1 - PPSV23) EYE EXAM 2004 VARICELLA VACCINES (2 of 2 - 13+ 11/29/2008 11/01/2008 2-dose series) PAP SMEAR 12/05/2015 DTaP,Tdap,and Td Vaccines (2 - Td) 11/01/2018 11/01/2008 LDL-C 04/29/2020 04/29/2019 HgA1C 05/09/2020 11/07/2019, 08/17/2019, 07/27/2019 URINE MICROALBUMIN 05/10/2020 05/10/2019 FOOT EXAM 08/03/2020 08/03/2019, 08/03/2019 CHLAMYDIA SCREENING 11/06/2020 11/07/2019 CREATININE (SERUM) 11/06/2020 11/07/2019, 08/17/2019, 04/29/2019, Additional history exists HPV VACCINES Completed 01/25/2010, 11/01/2008 INFLUENZA VACCINE Completed 04/29/2019, 04/14/2011, 05/13/2010, Additional history exists documented as of this encounter Results Not on filedocumented in this encounter Insurance Payer Benefit Plan / Subscriber ID Effective Dates Phone Addre ss Type Group [place] [facility] [place] xxxxxxxxx 2019-Present Medicaid HEALTH PLAN - HEALTH MANAGED MEDICAID documented as of this encounter
--- OUTSIDE RECORDS SUMMARY | 2019-11-25 04:50 | XMS REPORT | Summary of Care ---
:1994 Author Organization [facility] Address [address] [place] [address] Care Team Providers Name Role Phone Jonah Alvarado MD Primary Care Provider Encounter Details Date Type Department Care Team Description 11/09/2019 Patient Secure [facility] RMP- Doctor Leeann Jordan [place] [address] [facility] [address] [place] [address] [place] [phone] Allergies No Known Allergiesdocumented as of this [...] Diabetes & Denys Erwin MD Metabolism [address] [place] [address] [phone] 12/06/2019 Staff Mine Warfare Officer Visit Maternal Medicine 01/03/2020 Staff Mine Warfare Officer Visit Maternal Medicine 01/31/2020 Staff Mine Warfare Officer Visit Maternal Medicine Health Maintenance Due Date [...] Effective Dates Phone Addre ss Type Group [place] [facility] [place] xxxxxxxxx 2019-Present Medicaid HEALTH PLAN - HEALTH MANAGED MEDICAID documented as of this encounter
--- OUTSIDE RECORDS SUMMARY | 2019-11-25 04:50 | XMS REPORT | Summary of Care ---
:[address] [facility] Address [address] [place] [address] Care Team Providers Name Role Phone Jonah Alvarado MD Primary Care Provider Reason for Visit Reason Comments Abnormal Lab Chlamydia Encounter Details Date Type Department Care Team Description 11/09/2019 Telephone [facility]- Noelle Diallo Ab normal Lab [place] WAREHOUSE DIRECTOR (Chlamydia) [address] [facility] [address] [place] [phone] 15 [phone] Allergies No Known Allergiesdocumented as [...] of 11/09/2019) Active Problems Problem Noted Date Chlamydia 11/09/2019 [...] 11/14/2019 Telemedicine Visit [facility] [employer] Faculty, Gustabo [facility] 11/29/2019 Office Visit Endocrinology Diabetes & Denys Erwin MD Metabolism [address] [place] [address] [phone] 12/06/2019 Software Configuration Specialist Visit Maternal Medicine 01/03/2020 Software Configuration Specialist Visit Maternal Medicine 01/31/2020 Software Configuration Specialist Visit Maternal Medicine Health Maintenance Due Date [...]
--- OUTSIDE RECORDS SUMMARY | 2019-11-25 04:51 | XMS REPORT | Summary of Care ---
:1994 Author Organization [facility] Address [address] [place] [address] Care Team Providers Name Role Phone Jonah Alvarado MD Primary Care Provider Reason for Visit Reason Comments Results Encounter Details Date Type Department Care Team Description 11/09/2019 Telephone [facility]- A shay Ott, Gustabo [facility] Results [address] [place] [address] Allergies No Known Allergiesdocumented as of [...] Diabetes & Denys Erwin MD Metabolism [address] [place] [address] [phone] 12/06/2019 Detention Attendant Visit Maternal Medicine 01/03/2020 Detention Attendant Visit Maternal Medicine 01/31/2020 Detention Attendant Visit Maternal Medicine Health Maintenance Due [...]
--- OUTSIDE RECORDS SUMMARY | 2019-11-25 04:51 | XMS REPORT | Summary of Care ---
:1994 Author Organization [facility] Address [address] [place] [address] Care Team Providers Name Role Phone Jonah Alvarado MD Primary Care Provider Reason for Visit Reason Comments Abnormal Lab Chlamydia Encounter Details Date Type Department Care Team Description 11/09/2019 Telephone [facility]- Noelle Diallo Ab normal Lab [place] SENIOR QC TECHNICIAN (Chlamydia) [address] [facility] [address] [place], [place] [phone] Allergies No Known Allergiesdocumented as [...] Diabetes & Denys Erwin MD Metabolism [address] [place] [address] [phone] 12/06/2019 Dowel Sander Operator Visit Maternal Medicine 01/03/2020 Dowel Sander Operator Visit Maternal Medicine 01/31/2020 Dowel Sander Operator Visit Maternal Medicine Health Maintenance Due Date [...] Phone Addre ss Type Group [place] [facility] [place] xxxxxxxxx 2019-Present Medicaid HEALTH PLAN - HEALTH MANAGED MEDICAID documented as of this encounter
--- OUTSIDE RECORDS SUMMARY | 2019-11-25 04:51 | XMS REPORT | Summary of Care ---
:1994 Author Organization [facility] Address [address] [place] [address] Care Team Providers Name Role Phone Jonah Alvarado MD Primary Care Provider Reason for Visit Reason Comments Assessment Encounter Details Date Type Department Care Team Description 11/09/2019 Telephone [facility] Women's Anahi Encinas MD Assessment Healthcare-[address] [place] [address] [place], [place] [address]882 [place] [address] Allergies No Known Allergiesdocumented as of this [...] 11/14/2019 Telemedicine Visit [facility] [employer] Faculty, Gustabo Maciaschyumiko [facility] 11/29/2019 Office Visit Endocrinology Diabetes & Denys Erwin MD Metabolism [address] [place] [address] [phone] 12/06/2019 Manager Intelligence Visit Maternal Medicine 01/03/2020 Manager Intelligence Visit Maternal Medicine 01/31/2020 Manager Intelligence Visit Maternal Medicine Health Maintenance Due Date [...] Effective Dates Phone Addre ss Type Group [place] [facility] [place] xxxxxxxxx 2019-Present Medicaid HEALTH PLAN - HEALTH MANAGED MEDICAID documented as of this encounter
--- OUTSIDE RECORDS SUMMARY | 2019-11-25 04:52 | XMS REPORT | Summary of Care ---
:1994 Author Organization [facility] Address [address] [place] [address] Care Team Providers Name Role Phone Jonah Alvarado MD Primary Care Provider Reason for Visit Reason Comments Assessment Encounter Details Date Type Department Care Team Description 11/09/2019 Telephone [facility] Women's Anahi Encinas MD Assessment Healthcare-[address] [place] [address] [place], [place] [id number] [place] [address] Allergies No Known Allergiesdocumented [...] Team Description 11/14/2019 Telemedicine Visit [facility] Rudolph Alvarado MD [id number] [place], [place] [address] Faculty, Gustabo Main 11/29/2019 Office Visit Endocrinology Diabetes & Denys Erwin MD Metabolism [address] [place] [address] [phone] 12/06/2019 Golf Club Head Former Visit Maternal Medicine 01/03/2020 Golf Club Head Former Visit Maternal Medicine 01/31/2020 Golf Club Head Former Visit Maternal Medicine Health Maintenance Due Date [...] Effective Dates Phone Addre ss Type Group [place] [facility] [place] xxxxxxxxx 2019-Present Medicaid HEALTH PLAN - HEALTH MANAGED MEDICAID documented as of this encounter
--- OUTSIDE RECORDS SUMMARY | 2019-11-25 04:52 | XMS REPORT | Summary of Care ---
:1994 Author Organization [facility] Address [address] [place] [address] Care Team Providers Name Role Phone Jonah Alvarado MD Primary Care Provider Reason for Visit Reason Comments ULTRASOUND (Routine) Status Reason Specialty Diagnoses / Procedures Referred By Meng zapien To Contact Contact Closed Maternal Diagnoses Type 1 diabetes mellitus with microalbuminuria Jenn Encinas Medicine Procedures CONSULT MATERNAL MEDICINE ULTRASOUND MD [place] [address] [facility] [id number] [place] [address] Encounter Details Date Type Department Care Team Description 11/08/2019 Chassis Engineer Visit [facility] [place], Pre-ex isting type 1 diabetes mellitus in in second trimester; Ultrasound- Whately Mary Burden [facility] Maternal care for (suspected) damage to fetus by drugs, other fetus [address] [facility] [address] [facility] [address] [facility] [phone] [place] [address] Allergies No Known Allergiesdocumented as of this encounter (statuses as of 11/15/2019) Medications Medication Sig Dispensed Refills Start Date End Date Status glucagon (GLUCAGON Inject 1 mg 1 mg 1 08/15/2019 Suspended EMERGENCY KIT, intravenously as HUMAN,) 1 mg needed injectionIndicatio (hypoglycemia). ns: Hypoglycemia Additional information insulin aspart U-100 (NOVOLOG Use via sliding 36 mL 1 07/31 Suspended FLEXPEN U-100 INSULIN) 100 unit/mL scale TIDAC up to (3 mL) injectionIndications: Type max dose of 40 units 1 diabetes mellitus affecting daily in second trimester, antepartum Additional information vit calc,iron,folic Take by mouth. 0 Suspended ( VITAMIN ORAL) Insulin Glargine (LANTUS inject 30 Units 0 0 Suspended SOLOSTAR U-100 INSULIN) 100 under the skin unit/mL (3 mL) injection daily. aspirin 81 mg EC Take 1 tablet by 30 tablet 4 11/07/2019 Suspended tabletIndications: Type 1 mouth daily. diabetes mellitus with microalbuminuria Additional information documented as of this encounter (statuses as of 11/15/2019) Active Problems Problem Noted Date 27 weeks gestation of 11/14/2019 Modified White class C pregestational diabetes mellitu s 11/14/2019 Chlamydia 11/09/2019 Maternal varicella, non-immune 11/08/2019 Overview: Address in PCOS (polycystic ovarian syndrome) 04/23/2018 Type 1 diabetes mellitus with microalbuminuria 017 documented as of this encounter (statuses as of 11/15/2019) Resolved Problems Problem Noted Date Resolved Date Primigravida in first trimester 11/07/2019 11/07/19 20 Type 1 diabetes mellitus affecting in second 11/0611/07/2019 trimester, antepartum High-risk supervision, second trimester 07/29/2019 11/07/2019 23 weeks gestation of 07/29/2019 11/07/19 20 LFTs abnormal 01/19/2017 11/07/2019 documented as of this encounter (statuses as of 11/15/2019) Immunizations Name Administration Dates Next Due HEPATITIS [...] been in contact with No / Unsure 11/14/2019 4:37 PM CDT someone who was confirmed or suspected to have Coronavirus / COVID-19? documented as of this encounter Last Filed Vital Signs Not on filedocumented in this encounter Plan of Treatment Date Type Specialty Care Team Description 11/29/2019 Office Visit Endocrinology Diabetes & Denys Erwin MD Metabolism [address] [place], [place] [address] 12/06/2019 Chassis Engineer Visit Maternal Medicine 01/03/2020 Chassis Engineer Visit Maternal Medicine 01/31/2020 Chassis Engineer Visit Maternal Medicine Health Maintenance Due Date [...] Procedure Name Priority Date/Time Associated Comments Diagnosis SECOND AND THIRD Routine 11/08/2019 3:25 PM Resu lts for this TRIMESTER ULTRASOUND CDT procedu re are in the results section. documented in this encounter Results SECOND AND THIRD TRIMESTER ULTRASOUND (11/08/2019 3:25 PM CDT) Specimen documented in this encounter Visit Diagnoses Diagnosis Pre-existing type 1 diabetes mellitus in in second trimester Diabetes mellitus, antepartum Maternal care for (suspected) damage to fetus by drugs, other fetus documented in this encounter Insurance Payer Benefit Plan / Subscriber ID Effective Dates Phone Addre ss Type Group [place] [facility] [place] xxxxxxxxx 2019-Present Medicaid HEALTH PLAN - HEALTH MANAGED MEDICAID [id number] documented as of this encounter
--- OUTSIDE RECORDS SUMMARY | 2019-11-25 04:52 | XMS REPORT | Summary of Care ---
:1994 Author Organization [facility] Address [address] [place] [address] Care Team Providers Name Role Phone Jonah Alvarado MD Primary Care Provider Reason for Visit Reason Comments Abnormal Lab Chlamydia Encounter Details Date Type Department Care Team Description 11/09/2019 Telephone [facility]- Noelle Diallo Ab normal Lab [address] CYLINDER INSPECTOR (Chlamydia) [address] [facility] [address] [place], [place] [phone] Allergies No Known [...] Diabetes & Denys Erwin MD Metabolism [address] [place] [address] [phone] 12/06/2019 Gantry Crane Operator Visit Maternal Medicine 01/03/2020 Gantry Crane Operator Visit Maternal Medicine 01/31/2020 Gantry Crane Operator Visit Maternal Medicine Health Maintenance Due [...]
--- OUTSIDE RECORDS SUMMARY | 2019-11-25 04:52 | XMS REPORT | Summary of Care ---
:1995 Author Organization [facility] Address [address] [place] [address] Care Team Providers Name Role Phone Jonah Alvarado MD Primary Care Provider Reason for Visit Reason Comments Abnormal Lab Chlamydia Encounter Details Date Type Department Care Team Description 11/09/2019 Telephone [facility]- Noelle Diallo Ab normal Lab [place] MELLOWING MACHINE OPERATOR (Chlamydia) 110[address] [facility] [address] [place], [place] [phone] Allergies No Known [...] Satellites Rudolph Alvarado MD [id number] [place], [place] [address] Faculty, Gustabo Main 11/29/2019 Office Visit Endocrinology Diabetes & Denys Erwin MD Metabolism [address] [place] [address] [phone] 12/06/2019 Operating System Programmer Visit Maternal Medicine 01/03/2020 Operating System Programmer Visit Maternal Medicine 01/31/2020 Operating System Programmer Visit Maternal Medicine Health Maintenance Due Date [...] Phone Addre ss Type Group [place] [facility] [place] xxxxxxxxx 2019-Present Medicaid HEALTH PLAN - HEALTH MANAGED MEDICAID documented as of this encounter
--- OUTSIDE RECORDS SUMMARY | 2019-11-25 04:53 | XMS REPORT | Summary of Care ---
:1995 Author Organization [facility] - [facility] Address [address] [place] [address] Care Team Providers Name Role Phone Jonah Alvarado MD Primary Care Provider Reason for Referral (Routine) Status Reason Specialty Diagnoses / Procedures Referred By Meng zapien To Contact Contact New Request Diagnoses Type 1 diabetes mellitus with microalbuminuria 27 weeks gestation of Modified White class C pregestational diabetes mellitus [place] Procedures Discharge Follow-Up: Sales Service Supervisor ClNahomi Mccormick MD [address] [place] [address] Reason for Visit Auth/Cert Status Reason Specialty Diagnoses / Procedures Referred By Meng zapien To Contact Contact Obstetrics Diagnoses modified white class c pregestational diabetes mellitus [address] [address] Phone: Fax: Encounter Details Date Type Department Care Team Description 11/14/2019 - Hospital Encounter Labor and Delivery [place] Mod ified White class C 11/15/2019 ([facility]) kev Galvanestisaac [address] [place] [address] MD Nahomi diabetes mellitus [place] [phone] [place], [place] [phone] [facility] [phone] Allergies No Known Allergiesdocumented as of this encounter (statuses as of 11/15/2019) Medications Medication Sig Dispensed Refills Start End Status Date Date glucagon (GLUCAGON Inject 1 mg 1 mg 1 08/15/19 Active EMERGENCY KIT, intravenously as 20 HUMAN,) 1 mg needed injectionIndications (hypoglycemia). : Hypoglycemia vit Take by mouth. 0 A ctive calc,iron,folic ( VITAMIN ORAL) aspirin 81 mg EC Take 1 tablet by 30 tablet 4 11/07/19 Active tabletIndications: mouth daily. 20 Type 1 diabetes mellitus with microalbuminuria insulin regular Inject 13 u SQ 10 Vial 2 11/15/19 Active human 100 unit/mL with breakfast, 20 injectionIndications 10 u SQ with : Type 1 diabetes dinner mellitus with microalbuminuria, 27 weeks gestation of , Modified White class C pregestational diabetes mellitus insulin NPH 100 Inject 26u SQ 10 Vial 2 11/15/19 Active unit/mL daily at 07:30, 20 injectionIndications 10u SQ daily at : Type 1 diabetes 17:00 mellitus with microalbuminuria, 27 weeks gestation of , Modified White class C pregestational diabetes mellitus insulin aspart U-100 Use via sliding 36 mL 1 08/24/1917/08 Discontinued (NOVOLOG FLEXPEN scale TIDAC up to 20 020 U-100 INSULIN) 100 max dose of 40 unit/mL (3 mL) units daily injectionIndications : Type 1 diabetes mellitus affecting in second trimester, antepartum Insulin Glargine inject 30 Units 0 09/28/19 Discontinued (LANTUS SOLOSTAR under the skin 20 020 U-100 INSULIN) 100 daily. unit/mL (3 mL) injection insulin NPH 100 Inject 27u SQ 10 Vial 2 11/15/19 Discontinued unit/mL daily at 07:30, 20 020 (Reo rder) injectionIndications 10u SQ daily at : Type 1 diabetes 17:00 mellitus with microalbuminuria, 27 weeks gestation of , Modified White class C pregestational diabetes mellitus documented as of this encounter (statuses as of 11/15/2019) Active Problems Problem Noted Date 27 weeks gestation of 11/14/2019 Modified White class C pregestational diabetes mellitu s 11/14/2019 Chlamydia 11/09/2019 Maternal varicella, non-immune 11/08/2019 Overview: Address in PCOS (polycystic ovarian syndrome) 04/23/2018 Type 1 diabetes mellitus with microalbuminuria 017 Comments Yes documented as of this encounter (statuses as [...] Alcohol Use Drinks/Week oz/Week Comments Not Currently Comments Yes Sex Assigned at Date Recorded Not on [...] Sign Reading Time Taken Comments Blood Pressure 118/68 11/15/2019 12:45 PM CDT Pulse 81 11/15/2019 12:45 PM CDT Temperature 36.8 C (98.3 F) 11/15/2019 12:45 PM CDT Respiratory Rate 18 11/15/2019 12:45 PM CDT Oxygen Saturation 100% 11/15/2019 12:45 PM CDT Inhaled Oxygen Concentration - - Weight 74.5 kg (164 lb 4 oz) 11/14/2019 3:00 PM CDT Height - - Body Mass Index 24.26 11/07/2019 8:30 AM CDT documented in this encounter Discharge Instructions InstructionsFostIsela stevenson RN - 11/15/2019Urinary Tract Infections: 1. Drink plenty of fluids, at least 10-12 glasses of water daily. 2. Have your prescription filled today. 3. Take all of the medication prescribed, even if you are feeling better. 4. Empty your bladder often at least every 2 hours. 5. Be sure to wipe from front to back after urinating. 6. Call your clinic if: a. You have a fever of 100.4 F by mouth after taking your temperature twice, 4 hours apart. b. You see blood in your urine. c. You are unable to urinate. d. You have severe pain when you urinate. 7. Avoid alcohol, soft drinks and drinks with caffeine such as teas and coffee during this treatment. Labor (36 weeks and before): 1. Drink at least 10-12 glasses of water daily. 2. When resting or sleeping, stay off your back as much as possible. Use pillows for extra support. 3. Be sure to empty your bladder frequently at least every 2 hours. 4. No sexual intercourse or orgasm until checking with your doctor. 5. No tampons or douching until checking with your doctor. 6. Return to Labor and Delivery if you have any of the following: a. Tightening of the uterus (contractions) 6 or more per hour. b. Periodlike cramping. c. Low back pain. d. Pelvic pressure or aching thighs. e. Abdominal cramping with or without diarrhea. f. Vaginal spotting or bleeding with any of the above symptoms. g. Leaking of fluid from your vagina. High Blood Pressure: Return to Labor and Delivery if you have: 1. Swelling in your face, puffiness around your eyes, more than slight swelling of your hands, or excessive or sudden swelling of your feet or ankles. 2. Sudden weight gain (more than 4 pounds in a week). 3. Throbbing headaches that wont go away, even after taking wknu-weh-pqfrfnm medicines as instructed by your care provider. 4. Changes in vision, including blurry vision, a sensation of flashing lights or spots, or temporaryloss of vision. 5. Severe pain or tenderness in your upper stomach area. This may include nausea and vomiting. Fever: 1. Call your clinic if you have a fever of 100.4 F by mouth after taking your temperature twice, 4 hours apart. 2. Do not take any jmmn-hoq-uytuvff medications for an illness unless you have been instructed to doso by your physician or nurse. You should only take medicines on the list of safe medicines given to you at your clinic. Do not take more than the recommended doses. Decreased Movement: 1. Your baby should move at least 10 times in 2 hrs. 2. Keep a record of your babys movements on the Kick Count sheet provided 3. If you feel your baby is not moving as much as usual, do the following: a. Drink a large glass of water. b. Make sure you have eaten a meal recently. c. Lie on your left side and count the babys movements. d. If you do not have at least 10 movements in 2 hours, you should be seen as soon as possible in Labor and Delivery, or call your clinic, whichever is closer. e. IF YOUR BABYS MOVEMENTS ARE MUCH SLOWER THAN NORMAL, OR ABSENT, AND YOU ARE WORRIED, DO NOT WAIT AN ENTIRE DAY. IT IS BETTER TO BE REASSURED THAN TO FIND A PROBLEM WITH YOUR BABY THAT COULD HAVE BEEN AVOIDED! Bleedin. It is normal to have some red, pink, or brown spotting after a vaginal exam. 2. [place], light red and brownish spotting is not unusual, especially later in the . 3. However, if heavy bleeding is present: a. Note the amount with the number of pads saturated. b. Note the color of the bleeding. c. Note any pain associated with the bleeding. d. Call Labor and Delivery or your clinic immediately. AttachmentsThe following attachments cannot be sent through Care Everywhere. Treating Low Blood Sugar (Hypoglycemia), Inyu-sh-Jkub (Irish)Treatment of Diabetes (Irish)Regular Insulin; Isophane Insulin (NPH) injection (Irish) Regular Insulin injection (Irish), If You Need Insulin During (Irish)Nutrition Facts Labels and Diabetes (Irish)Kick Counts (Irish) documented in this encounter Plan of Treatment Date Type Specialty Care Team Description 11/22/2019 Routine OB Satellites Noelle Diallo Visit R, PET CARE ATTENDANT [address] [place], [place] [address] [phone] 11/29/2019 Office Visit Endocrinology Diabetes Amauri Erwin MD & Metabolism [address] [place] [address] [phone] 12/06/2019 Marketing Clerk Visit Maternal Medicine 01/03/2020 Marketing Clerk Visit Maternal Medicine 01/31/2020 Marketing Clerk Visit Maternal Medicine Name Type Priority Associated Diagnoses Date/Ti me GC & CHLAMYDIA LAB STAT 11/14/2019 8 :43 PM AMPLIFIED ASSAY CDT Urine Culture LAB ELIU 11/14/2019 8: 13 PM CDT NON-STRESS TEST IMAGING Routine Type 1 diabetes ronni litus 11/15/2019 5:38 PM with microalbumi opal CDT 27 weeks gestation of Modified White class C pregestational diabetes mellitus Name Type Priority Associated Diagnoses Order S chedule POCT GLUCOSE(AGE LAB ELIU ONCE for 1 >30DAYS) Occurrences sta rting 11/14/2019 unti l 11/14/2019 GC & CHLAMYDIA LAB STAT STAT for 1 AMPLIFIED ASSAY Occurrences starting 11/14/2019 unti l 11/14/2019 PROTEIN QUANT U/24H LAB ELIU ONCE for 1 Occurrences sta rting 11/14/2019 unti l 11/14/2019 EKG-12 LEAD ROUTINE HEART STATION Routine ONCE fo r 1 Occurrences sta rting 11/15/2019 unti l 11/15/2019 Health Maintenance Due Date Last Done Comments [...] Name Priority Date/Time Associated Comments Diagnosis POCT GLUCOSE Routine 11/15/2019 4:49 Results for this (AUTOMATED) PM CDT procedure are i n the results section. POCT GLUCOSE Routine 11/15/2019 11:46 Results for this (AUTOMATED) AM CDT procedure are i n the results section. POCT GLUCOSE Routine 11/15/2019 9:28 Results for this (AUTOMATED) AM CDT procedure are i n the results section. POCT GLUCOSE Routine 11/15/2019 12:08 Results for this (AUTOMATED) AM CDT procedure are i n the results section. POCT GLUCOSE Routine 11/14/2019 10:39 Results for this (AUTOMATED) PM CDT procedure are i n the results section. URINALYSIS ELIU 11/14/2019 8:13 Results for this PM CDT procedure are i n the results section. POCT GLUCOSE Routine 11/14/2019 5:19 Results for this (AUTOMATED) PM CDT procedure are i n the results section. CORONAVIRUS COVID-19 STAT 11/14/2019 4:53 Res ults for this TESTING PM CDT procedure are i n the results section. documented in this encounter Results POCT GLUCOSE (AUTOMATED) (11/15/2019 4:49 PM CDT) Pathologist Sig nature POCT GLU 52 (L) 70 - 110 mg/dL [facility] Specimen Blood Performing Organization Address City/[facility]/Zipcode Phone Number [facility] CLIA: [id number], [address] [place] [address] [facility] POCT GLUCOSE (AUTOMATED) (11/15/2019 11:46 AM CDT) Pathologist Sig nature POCT GLU 224 (H) 70 - 110 mg/dL [facility] Specimen Blood Performing Organization Address City/[facility]/Zipcode Phone Number [facility] CLIA: [id number], [address] [place] [address] [facility] POCT GLUCOSE (AUTOMATED) (11/15/2019 9:28 AM CDT) Pathologist Sig nature POCT GLU 70 70 - 110 mg/dL [facility] Specimen Blood Performing Organization Address City/[facility]/Zipcode Phone Number [facility] CLIA: [id number], [address] [place] [address] [facility] POCT GLUCOSE (AUTOMATED) (11/15/2019 12:08 AM CDT) Pathologist Sig nature POCT GLU 114 (H) 70 - 110 mg/dL [facility] Specimen Blood Performing Organization Address [facility] Phone Number [facility] CLIA: [id number], [address] [place] [address] [facility] POCT GLUCOSE (AUTOMATED) (11/14/2019 10:39 PM CDT) Pathologist Sig nature POCT GLU 160 (H) 70 - 110 mg/dL [facility] Specimen Blood Performing Organization Address [facility] Phone Number [facility] CLIA: [id number], [address] [place] [address] [facility] URINALYSIS (11/14/2019 8:13 PM CDT) APPEARANCE Clear Clear [facility] COLOR Yellow Yellow [facility] PH 6.0 4.8 - 8.0 [facility] SP GRAVITY 1.026 1.003 - 1.030 [facility] GLU U QUAL Normal Normal [facility] BLOOD NegativeComment: Negative [facility] Interference from SERVICES ascorbic acid may cause false negative results. KETONES 20 mg/dL (A) Negative [facility] PROTEIN 30 mg/dL (A) Negative [facility] UROBILIN Normal Normal [facility] BILIRUBIN Negative Negative [facility] NITRITE Negative Negative [facility] LEUK ANDREW Negative Negative [facility] RBC/HPF 4 (H) 0 - 3 HPF [facility] WBC/HPF 3 0 - 5 HPF [facility] BACTERIA Negative Negative [facility] MUCOUS Slight (A) Negative LPF [facility] SQ EPITH 2 <=2 HPF [facility] ASCORBIC ACID 40 mg/dL [facility] Specimen Urine - URINE, CLEAN CATCH Performing Organization Address City/[facility]/Zipcode Phone Number [facility] CLIA: [id number], [address] [place] [phone] [facility] POCT GLUCOSE (AUTOMATED) (11/14/2019 5:19 PM CDT) Pathologist Sig nature POCT GLU 69 (L) 70 - 110 mg/dL [facility] Specimen Blood Performing Organization Address [facility] Phone Number [facility] CLIA: [id number], [address] [place] [address] [facility] CORONAVIRUS COVID-19 TESTING (11/14/2019 4:53 PM CDT) Pathologist [facility] SARS-CoV-2 Not Detected Not Detected [facility] Specimen Swab - NASOPHARYNGEAL SWAB Narrative Performed At [facility] COVID-19 Assay is an isothermal nucleic acid [facility] amplification test intended for the qualitative detect ion of nucleic acid from SARS-CoV-2 viral RNA in nasopharynge al (NECKTIES PAINTER) specimens. It is used under Emergency Use Authori zation (EUA) by FDA. The limit of detection (LOD) of the assa y is 125 Genome Equivalents/mL. A positive result is indicative of the presence of SARS-CoV-2 RNA. Clinical correlation with patient hi story and other diagnostic information is necessary to deter mine patient infection status. A negative (Not Detected) result does not preclude SARS-CoV-2 infection. Clinical correlation with patien t history and other diagnostic information should be use d in patient management decisions. Invalid: Please collect a new specimen for repeat lambert ent testing if clinically indicated. Performing Organization Address City/[facility]/Zipcode Phone Number [facility] CLIA: [id number], [address] [place] [phone] 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 - Primary 27 weeks gestation of state, incidental Modified White class C pregestational di abetes mellitus Maternal varicella, non-immune Supervision of other high-risk Chlamydia Other specified chlamydial infection, in conditions classified elsewhere and of unspecified site documented in this encounter Administered Medications Medication Order MAR Action Action Date Dose Rate Site alum-mag hydroxide-simeth (MAALOX PLUS / MAG-AL PLUS) 200-200-20 mg/5 mL suspension 30 mL 30 mL, Oral, Q6HPRN, Starting Thu11/14/19 at 1905, Unt il Discontinued, Routine, Indigestion docusate calcium (SURFAK) capsule 240 mg 240 mg, Oral, QHSPRN, Starting Thu at 1905, Until Discontinued, Routine, Constipation insulin NPH (HUMULIN N) Given 11/14/2019 8:11 PM CDT 10 Units Left Thigh-SC injection 10 Units 10 Units, Subcutaneous, DAILY AT 1700, First dose on Thu11/14/19 at 1915, Until Discontinued, Routine insulin NPH (HUMULIN N) injection 26 Uni ts 26 Units, Subcutaneous, QAM-0730, First dose on Thu at 0730, Until Discontinued, Routine insulin regular human (HUMULIN Given 11/14/2019 8:12 PM CDT 10 Units Left Thigh-SC R) injection 10 Units 10 Units, Subcutaneous, DINNER, First dose on Thu11/14/19 at 1915, Until Discontinued, Routine insulin regular human Given 11/15/2019 9:30 AM CDT 13 Units Left Upper Arm-SC (HUMULIN R) injection 13 Units 13 Units, Subcutaneous, QAM WITH BREAKFAST, First dose on Thu11/15/19 at 0800, Until Discontinued, Routine magnesium hydroxide (MILK OF MAGNESIA) 4 00 mg/5 mL suspension 30 mL 30 mL, Oral, QDAILYPRN, Starting 10/27 8 at 1905, Until Discontinued, Routine, Constipation vitamin w/FA (PRENATABS RX) Given 11/15/2019 9:29 AM C DT 1 tablet tablet 1 tablet 1 tablet, Oral, DAILY, First dose on Thu11/15/19 at 0900, Until Discontinued, Routine Sliding Scale Insulin-Regular + Fsbg Given 11/15/2019 11:54 AM C DT 2 Units Left Arm Testing Subcutaneous, AC+HS, First dose on Thu11/15/19 at 0730, Until Discontinued, Routine Medication Order MAR Action Action Date Dose Rate Site insulin NPH (HUMULIN N) Given 11/15/2019 9:29 AM 27 Units Left Upper Arm-SC injection 27 Units CDT 27 Units, Subcutaneous, QAM-0730, First dose on Thu11/15/19 at 0730, Until Discontinued, Routine documented in this encounter Insurance Payer Benefit Plan / Subscriber ID Effective Dates Phone Addre ss Type Group [facility]ILDR[facility] xxxxxxxxx 2019-Present Medicaid HEALTH PLAN - HEALTH MANAGED MEDICAID [id number] documented as of this encounter
[2019-11-25] MEDS ORDERED: D50W 25 GM/50 ML SYRINGE/VIAL IV ONE (04:54)
--- OUTSIDE RECORDS SUMMARY | 2019-11-25 04:54 | XMS REPORT | Summary of Care ---
:1995 Author Organization [address] [address] Care Team Providers Name Role Phone Jonah Alvarado MD Primary Care Provider Reason for Visit Reason Comments Results Persistently positive chlamy bennett Encounter Details Date Type Department Care Team Description 11/16/2019 Telephone [facility] Geraldine Lugo MD Results (Persistently [facility] positive chlamydia) [place] [address] [place], [place] [id number] Drive, [facility] floor [phone] [place] [address] Allergies No Known Allergiesdocumented as of this encounter (statuses as of 11/17/2019) Medications Medication Sig Dispensed Refills Start Date End Date Status glucagon (GLUCAGON Inject 1 mg 1 mg 1 08/15/2019 Active EMERGENCY KIT, HUMAN,) intravenously as 1 mg needed injectionIndications: (hypoglycemia). Hypoglycemia vit Take by mouth. 0 A ctive calc,iron,folic ( VITAMIN ORAL) aspirin 81 mg EC Take 1 tablet by 30 tablet 4 11/07/2019 Active tabletIndications: mouth daily. Type 1 diabetes mellitus with microalbuminuria insulin regular human Inject 13 u SQ 10 Vial 2 11/15/2019 Active 100 unit/mL with breakfast, 10 injectionIndications: u SQ with dinner Type 1 diabetes mellitus with microalbuminuria, 27 weeks gestation of , Modified White class C pregestational diabetes mellitus insulin NPH 100 Inject 26u SQ 10 Vial 2 11/15/2019 Active unit/mL daily at 07:30, injectionIndications: 10u SQ daily at Type 1 diabetes 17:00 mellitus with microalbuminuria, 27 weeks gestation of , Modified White class C pregestational diabetes mellitus azithromycin 500 mg Take 2 tablets by 1 tablet 0 11/16/2019 0 tabletIndications: mouth once now for 0 Chlamydia 1 dose. documented as of this encounter (statuses as of 11/17/2019) Active Problems Problem Noted Date 27 weeks gestation of 11/14/2019 Modified White class C pregestational diabetes mellitu s 11/14/2019 Chlamydia 11/09/2019 Maternal varicella, non-immune 11/08/2019 Overview: Address in PCOS (polycystic ovarian syndrome) 04/23/2018 Type 1 diabetes mellitus with microalbuminuria 017 Estimated Date of Delivery Comments Yes 02/10/2020 Based on Ultrasound documented as of this encounter (statuses as of 11/17/2019) Resolved Problems Problem Noted Date Resolved Date Primigravida in first trimester 11/07/2019 11/07/19 20 Type 1 diabetes mellitus affecting in second 11/0611/07/2019 trimester, antepartum High-risk supervision, second trimester 07/29/2019 11/07/2019 23 weeks gestation of 07/29/2019 11/07/19 20 LFTs abnormal 01/19/2017 11/07/2019 documented as of this encounter (statuses as of 11/17/2019) Immunizations Name Administration Dates Next Due HEPATITIS [...] Routine OB Satellites Noelle Diallo Visit R, WASTEWATER MANAGER [address] [place], [place] [address] [phone] 11/29/2019 Office Visit Endocrinology Diabetes ErwinAmauri MD & Metabolism [address] [place] [address] [phone] 12/06/2019 Associate Technician Visit Maternal Medicine 01/03/2020 Associate Technician Visit Maternal Medicine 01/31/2020 Associate Technician Visit Maternal Medicine Health Maintenance Due Date [...] 11/06/2020 11/07/2019, 08/17/2019, 04/29/2019, Additional history exists CHLAMYDIA SCREENING 11/13/2020 11/14/2019, 11/07/2019 HPV VACCINES Completed 01/25/2010, 11/01/2008 INFLUENZA VACCINE [...] Phone Addre ss Type Group [facility] [place] [facility] xxxxxxxxx 2019-Present Medicaid HEALTH PLAN - HEALTH MANAGED MEDICAID documented as of this encounter
--- OUTSIDE RECORDS SUMMARY | 2019-11-25 04:54 | XMS REPORT | Summary of Care ---
:[address] 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 [employer] Nahomi Tellez MD [address] [facility] [id number] [place] [address] Encounter Details Date Type Department Care Team Description 11/22/2019 Routine [facility]- Noelle Diallo upervision of high risk in third trimester (Primary Dx); Visit SYEDA Pink Primigravida in third trimester; [address] Type 1 diabetes mellitus wit h microalbuminuria; [place] for T[place] vaccination [id number] [place] [phone] [id number] Allergies No Known Allergiesdocumented as of this encounter (statuses as of 11/23/2019) Medications Medication Sig Dispensed Refills Start Date [...] insulin regular human Inject 13 u SQ with 10 Vial 2 11/15/19 20 Active 100 unit/mL breakfast, 10 u SQ injectionIndications: with dinner Type 1 diabetes mellitus with microalbuminuria, 27 weeks gestation of , Modified White class C pregestational diabetes mellitus insulin NPH 100 Inject 26u SQ daily 10 Vial 2 11/15/2019 Active unit/mL at 07:30, 10u SQ injectionIndications: daily at 17:00 Type 1 diabetes mellitus with microalbuminuria, 27 weeks gestation of , Modified White class C pregestational diabetes mellitus documented as of this encounter (statuses as of 11/23/2019) Active Problems Problem Noted Date 27 weeks gestation of 11/14/2019 Modified White class C pregestational diabetes mellitu s 11/14/2019 Chlamydia 11/09/2019 Maternal varicella, non-immune 11/08/2019 Overview: Address in Primigravida in third trimester 11/07/2019 Supervision of high risk in third trimester 07/29/2019 PCOS (polycystic ovarian syndrome) 04/23/2018 Type 1 diabetes mellitus with microalbuminuria 017 Estimated Date of Delivery Comments Yes 02/10/2020 Based on Ultrasound documented as of this encounter (statuses as of 11/23/2019) Resolved Problems Problem Noted Date Resolved Date Type 1 diabetes mellitus affecting in second 11/0611/07/2019 trimester, antepartum 23 weeks gestation of 07/29/2019 11/07/19 20 LFTs abnormal 01/19/2017 11/07/2019 documented as of this encounter (statuses as of 11/23/2019) Immunizations Name Administration Dates Next Due HEPATITIS A 11/01/2008 HPV 01/25/2010, 11/01/2008 Influenza Virus Vaccine 04/29/2019, 04/14/2011, 05/13/2010, 06/15/2009, 03/14/2009, 04/23/2007 Meningococcal Polysaccharide (groups 12/10/2012, 11/01/2008 A, C, Y and W-135) conjugate vaccine (MCV4P) TDAP (ADACEL) VACCINE 11/22/2019 Tdap 11/01/2008 Varicella (varivax)(chicken pox) 11/01/2008 documented [...] been in contact with No / Unsure 11/22/2019 3:54 PM CDT someone who was confirmed or suspected to have Coronavirus / COVID-19? documented as of this encounter Last Filed Vital Signs Vital Sign Reading Time Taken Comments Blood Pressure 125/80 11/22/2019 4:05 PM CDT Pulse 90 11/22/2019 4:05 PM CDT Temperature 36.6 C (97.8 F) 11/22/2019 4:05 PM CDT Respiratory Rate 16 11/22/2019 4:05 PM CDT Oxygen Saturation - - Inhaled Oxygen Concentration - - Weight 76.7 kg (169 lb) 11/22/2019 4:05 PM CDT Height 175.3 cm (5' 9") 11/22/2019 4:05 PM CDT Body Mass Index 24.96 11/22/2019 4:05 PM CDT documented in this encounter Progress Notes Mili Nair RN - 11/22/2019 3:45 PM CDTPatient provided with 28 weeks packet; stressed the importance of the kick count of 10 x within 2 hours; patient verbalized understanding. Tdap given IM to right deltoid per aseptic tech; site massaged; band-aid applied; tolerated well; VIS given and reviewed with patient at this time. Shared decision plan completed today. Reviewed s/s of labor. Patient denies any complications at this time. Noelle Cardenas FNP - 11/22/2019 3:45 PM CDT Chief complaint: No chief complaint on file. HPI CC: Follow Up Visit Sri Rosales is a 23 year old, , /White female. Patient's last menstrual period was 03/25/2019. She is 28w4d with an intrauterine . Her estimated date of delivery is 02/10/2020, by Ultrasound. She has no complaints today. She reports +FM and denies contractions, LOF and bleeding today. Patient was admitted to [facility] for blood sugar control. Patient was discharged on Thursday and instructed to keep log daily. Will review labs and f/u as needed. OB/ER, PIH, PTL and movement precautions given. Patient denies current or past physical, sexual or emotional abuse. Histories OB History Para Term AB Living 1 SAB TAB Ectopic Multiple Live Births # Outcome Date GA Lbr Harinder/2nd Weight Sex Delivery Anes PTL Lv 1 Current Past Medical History: Diagnosis Date Chlamydia 11/09/2019 Diabetes mellitus type 1 diagnosed at 9 [...] file Gets together: Not on file Attends lutheran service: Not on file Active member of [...] control/protection: None Labs Labs are pending. Radiology No new radiology. Allergies Sri has No Known Allergies. Medications Sri has a current medication list which includes the following prescription(s): insulin nph, insulin regular human, aspirin, vit calc,iron,folic, and glucagon. Review of Systems Eyes: Negative for visual disturbance. Cardiovascular: Negative for leg swelling. Gastrointestinal: Negative for abdominal pain, nausea and vomiting. Genitourinary: Negative for vaginal bleeding, vaginal discharge and pelvic pain. Neurological: Negative for headaches. BP 125/80 (BP Location: Right arm, Patient Position: Sitting, BP CUFF SIZE: Adult Medium) | Pulse 90 | Temp 36.6 C (97.8 F) (Oral) | Resp 16 | Ht 5' 9" (1.753 m) | Wt 169 lb (76.7 kg) | LMP 03/25/2019 | BMI 24.96 kg/m Pregravid BMI: 22.7 Physical Exam PHYSICAL: General Exam: Neurological: Normal Abdomen: Normal Extremities: Normal Pelvic Exam: Uterus: 27cm Weeks Assessment/Plan Supervision of high risk in third trimester (primary encounter diagnosis) Primigravida in third trimester Comment: Routine Visit Plan: WORKUP, BLOOD BANK, CBC with Differential, VZV ANTIBODY SCREEN, RUBELLA SCREEN (CHIN) IGG, HIV 1/2 AG-AB WITH REFLEX, GALV ONLY - SYPHILIS IGG/IGM, HEPATITIS B SURFACE ANTIGEN, GC & CHLAMYDIA AMPLIFIED ASSAY, CBC WITH DIFFERENTIAL, POCT URINALYSIS W SPECIFIC GRAVITY Denies zika virus risk, signs and symptoms such as fever,rash,joint pain, conjunctivitis (red eyes), muscle pain, headaches; outside [place] travel to areas affected by zika, and FOB exposure to zika.Educated on use of mosquito repellent. Covid x12 screening done, screening results are negative. Type 1 diabetes mellitus with microalbuminuria Comment: GDM log reviewed fasting range from 44-124 ( 1 elevated out of 7), 2 hr PP range from 41-326 (10 out of 21 were elevated) Plan: Glycosylated Hemoglobin (A1C) RTC on to see HR COPPER PLATE LITHOGRAPHER. Need for Tdap vaccination Comment: per protocol Plan: TDAP (ADACEL) IMMUNIZATION Return to clinic in 2 days with HR COPPER PLATE LITHOGRAPHER. Discussed treatment options. Medications as ordered. Reviewed patient instructions and provided printed copy. This visit did not involve counseling and coordination that comprised more than 50% of the visit time. SYEDA Kumar 11/22/2019 4:25 PM documented in this encounter Plan of Treatment Date Type Specialty Care Team Description 11/24/2019 Routine OB Satellites Risk, Visit [id number]/ 11/29/2019 Office Visit Endocrinology Diabetes & [place] [address] [phone] 12/06/2019 Furnace Firer Visit Maternal Medicine 01/03/2020 Furnace Firer Visit Maternal Medicine 01/31/2020 Furnace Firer Visit Maternal Medicine Name Type Priority Associated Diagnoses Date/Ti me VZV ANTIBODY SCREEN LAB Routine Supervision of high r isk 11/22/2019 4:15 PM CDT in third trimester RUBELLA SCREEN (CHIN) LAB Routine Supervision of hig h risk 11/22/2019 4:15 PM CDT IGG in third trimester GALV ONLY - SYPHILIS LAB Routine Supervision of high risk 11/22/2019 4:15 PM CDT IGG/IGM in third trimester GC & CHLAMYDIA LAB Routine Supervision of high risk 0 11/22/2019 4:15 PM CDT AMPLIFIED ASSAY in third trimester Health Maintenance Due Date Last Done Comments EYE EXAM 2004 PAP SMEAR 12/05/2015 LDL-C 04/29/2020 04/29/2019 URINE MICROALBUMIN 05/10/2020 05/10/2019 HgA1C 05/24/2020 11/22/2019, 11/07/2019, 08/17/2019, Additional history exists FOOT EXAM 08/03/2020 08/03/2019, 08/03/2019 CREATININE (SERUM) 11/06/2020 11/07/2019, 08/17/2019, 04/29/2019, Additional history exists CHLAMYDIA SCREENING 11/13/2020 11/14/2019, 11/07/2019 PNEUMOCOCCAL 0-64 YEARS 11/21/2020 Postpone d from COMBINED SERIES (1 of 1 - 2000 ( or PPSV23) ) VARICELLA VACCINES (2 of 2 11/21/2020 11/01/2008 Postp oned from - 13+ 2-dose series) 11/29/2008 ( or ) DTaP,Tdap,and Td Vaccines 11/21/2029 11/22/2019, 11/01/2008 (3 - Td) HPV VACCINES Completed 01/25/2010, 11/01/2008 INFLUENZA VACCINE Completed 04/29/2019, 04/14/2011, 05/13/2010, Additional history exists documented as of this encounter Procedures Procedure Name Priority Date/Time Associated Diagnosis Comme nts POCT URINALYSIS Routine 11/22/2019 4:20 Supervision of high R esults for this PM CDT risk in [facility] are in trimester the results section. HIV 1/2 AG-AB WITH Routine 11/22/2019 4:15 Supervision of hig h Results for this REFLEX PM CDT risk in surgery [facility] are in trimester the results section. CBC WITH Routine 11/22/2019 4:15 Supervision of high Resu lts for this DIFFERENTIAL PM CDT risk in surgery [facility] are in trimester the results section. HEPATITIS B SURFACE Routine 11/22/2019 4:15 Supervision of hi gh Results for this ANTIGEN PM CDT risk in surgery [facility] are in trimester the results section. GLYCOSYLATED Routine 11/22/2019 4:15 Type 1 diabetes Results for this HEMOGLOBIN (A1C) PM CDT mellitus with procedure are in microalbuminuria the results section. CBC WITH Routine 11/22/2019 4:15 Supervision of high Resu lts for this DIFFERENTIAL PM CDT risk in [facility] are in trimester the results section. TDAP (ADACEL) Routine 11/22/2019 4:06 Need for Tdap IMMUNIZATION PM CDT vaccination HB ABO GROUPING Routine 11/22/2019 3:59 Supervision of high R esults for this PM CDT risk in [facility] are in trimester the results section. documented in this encounter Results POCT URINALYSIS W SPECIFIC GRAVITY (11/22/2019 4:20 PM CDT) Pathologist Sig nature POCT U SP GRAV . 1.005 - 1.025 mg/dl POCT PH U . 5 - 8 mg/dl POCT U LEUK EST . Negative - Negative POCT U NIT . Negative - Negative POCT U PROT Trace Negative - Negative POCT U GLU Neg Negative - Negative POCT U KETONE . Negative - Negative POCT U UROBILI . 0.2 - 1 mg/dl POCT U BILI . Negative - Negative POCT U BLD . Negative - Negative POCT U COLOR POCT U APPEAR Specimen Urine - URINE, CLEAN CATCH CBC WITH DIFFERENTIAL (11/22/2019 4:15 PM CDT) Pathologist Sig nature WBC 9.85 4.30 - 11.10 [facility]/L [facility] RBC 4.47 3.93 - 5.25 [facility] 10*6/L SERVICES HGB 13.1 11.6 - 15.0 g/dL [facility] HCT 41.0 35.7 - 45.2 % [facility] MCV 91.7 80.6 - 95.5 fL [facility] MCH 29.3 25.9 - 32.8 pg [facility] MCHC 32.0 31.6 - 35.1 g/dL [facility] RDW-SD 46.4 39.0 - 49.9 fL [facility] RDW-CV 13.6 12.0 - 15.5 % [facility] PLT 249 166 - 358 [facility] 10*3/L SERVICES MPV 10.5 9.5 - 12.9 fL [facility] NRBC/100 WBC 0.0 0.0 - 10.0 /100 [facility] WBCs SERVICES NRBC x10^3 <0.01 10*3/L [facility] GRAN MAT (NEUT) % 71.1 % [facility] IMM GRAN % 0.60 % [facility] LYMPH % 17.7 % [facility] MONO % 7.6 % [facility] EOS % 2.8 % [facility] BASO % 0.2 % [facility] GRAN MAT x10^3(ANC) 7.00 1.88 - 7.09 [facility] 10*3/uL SERVICES IMM GRAN x10^3 0.06 0.00 - 0.06 [facility] 10*3/uL SERVICES LYMPH x10^3 1.74 1.32 - 3.29 [facility] 10*3/uL SERVICES MONO x10^3 0.75 0.33 - 0.92 [facility] 10*3/uL SERVICES EOS x10^3 0.28 0.03 - 0.39 [facility] 10*3/uL SERVICES BASO x10^3 <0.03 0.01 - 0.07 [facility] 10*3/uL SERVICES Specimen Blood - ARM, LEFT Performing Organization Address City/[facility] Phone Number [facility] CLIA: [id number], [address] [place] [address] [address] [facility] Glycosylated Hemoglobin (A1C) (11/22/2019 4:15 PM CDT) Pathologist Sig [facility] HGB A1C 6.5 (H) 4.0 - 6.0 % [facility] Specimen Blood - ARM, LEFT Performing Organization Address [facility] Phone Number [facility] CLIA: [id number], [address] [place] [address] [address] [facility] HEPATITIS B SURFACE ANTIGEN (11/22/2019 4:15 PM CDT) Pathologist Sig [facility] HBsAg Negative Negative [facility] HBsAg 0.07 [facility] Semi-Quantitative SERVICES Specimen Blood - ARM, LEFT Performing Organization Address [facility] Phone Number [facility] CLIA: [id number], [address] [place] [address] [address] [facility] HIV 1/2 AG-AB WITH REFLEX (11/22/2019 4:15 PM CDT) Pathologist Sig [facility] HIV 1/2 Ag-Ab with Negative Negative [facility] Reflex SERVICES HIV Semi-quantitative 0.06 [facility] Specimen Blood - ARM, LEFT Narrative Performed At Non-reactive for HIV-1 antigen and HIV-1/HIV-2 antibod ies. [facility] No laboratory evidence of HIV infection. Repeat in 2-4 weeks if acute HIV infection is suspected. Performing Organization Address City/[facility] Phone Number [facility] CLIA: [id number], [address] [place] [address] [address] [facility] WORKUP, BLOOD BANK (11/22/2019 3:59 PM CDT) Pathologist Sig nature ABO & RH A POSITIVE LAB Comment: Performed at [facility] Services - [facility] Blood Bank [address] [place] [address] Toll Free: [phone] CLIA No. [id number] IAT Negative LAB Comment: Performed at [facility] - [facility] Blood [address] [address] Toll Free: [phone] CLIA No. 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
--- OUTSIDE RECORDS SUMMARY | 2019-11-25 04:54 | XMS REPORT | Summary of Care ---
:1995 Author Organization [facility] Address [address] [place] [address] Care Team Providers Name Role Phone Jonah Alvarado MD Primary Care Provider Reason for Visit Reason Comments MFM Visit Encounter Details Date Type Department Care Team Description 11/24/[address] Cind y Mariah, CNP [address] [place] [address] Modified White class C pregestational di abetes mellitus (Primary Dx); Visit [place] [facility] YuanLqo-Rgufy-Bv/High Supervision of high risk in th ird trimester; [address] 28 weeks gestation of pregna nvy; [place], [place] Chlamydia; [id number] Cystic fibrosis carrier [phone] Allergies No Known Allergiesdocumented as of this encounter (statuses as of 11/24/2019) Medications Medication Sig Dispensed Refills Start End [...] 100 Inject 26u SQ 10 Vial 2 11/24/19 Active unit/mL daily at 07:30, 20 injectionIndications 6u SQ daily at : 28 weeks gestation 17:00 of , Modified White class C pregestational diabetes mellitus insulin NPH 100 Inject 26u SQ 10 Vial 2 11/15/19 Discontinued unit/mL daily at 07:30, 20 020 (Dos e injectionIndications 10u SQ daily at adjustment) : Type 1 diabetes 17:00 mellitus with microalbuminuria, 27 weeks gestation of , Modified White class C pregestational diabetes mellitus documented as of this encounter (statuses as of 11/24/2019) Active Problems Problem Noted Date Cystic fibrosis carrier 11/24/2019 27 weeks gestation of 11/14/2019 Modified White [...] as of this encounter (statuses as of 11/24/2019) Resolved Problems Problem Noted Date Resolved Date Type 1 diabetes mellitus affecting in second 11/0611/07/2019 trimester, antepartum 23 weeks gestation of 07/29/2019 11/07/19 20 LFTs abnormal 01/19/2017 11/07/2019 documented as of this encounter (statuses as of 11/24/2019) Immunizations Name Administration Dates Next Due HEPATITIS [...] been in contact with No / Unsure 11/24/2019 3:19 PM CDT someone who was confirmed or suspected to have Coronavirus / COVID-19? documented as of this encounter Last Filed Vital Signs Vital Sign Reading Time Taken Comments Blood Pressure 120/80 11/24/2019 3:19 PM CDT Pulse 87 11/24/2019 3:19 PM CDT Temperature 36.8 C (98.2 F) 11/24/2019 3:19 PM CDT Respiratory Rate 16 11/24/2019 3:19 PM CDT Oxygen Saturation - - Inhaled Oxygen Concentration - - Weight 76.2 kg (168 lb) 11/24/2019 3:19 PM CDT Height 175.3 cm (5' 9") 11/24/2019 3:19 PM CDT Body Mass Index 24.81 11/24/2019 3:19 PM CDT documented in this encounter Progress Notes Meredith Kingsley, WHCNP - 11/24/2019 3:00 PM CDT Chief complaint: Chief Complaint Patient presents with MFM Visit HPI Sri Rosales is a 23 year old WF who is 28w6d with IUP. Her Estimated Date of Delivery: 02/10/20 by usg. Denies headache, n/v, visual changes, sob,cp, ruq pain, bleeding,lof and ctxs. Has +FM.. Diabetes-on diet and insulin regimen. Reports compliance most of time. Histories OB History Para Term AB Living [...] file Gets together: Not on file Attends mu-ism service: Not on file Active member of [...] vit calc,iron,folic, and glucagon. Review of Systems See HPI BP 120/80 (BP Location: Right arm, Patient Position: Sitting, BP CUFF SIZE: Adult Medium) | Pulse 87 | Temp 36.8 C (98.2 F) (Oral) | Resp 16 | Ht 5' 9" (1.753 m) | Wt 168 lb (76.2 kg) | LMP 03/25/2019 | BMI 24.81 kg/m Pregravid BMI: 22.7 Physical Exam CONSTITUTIONAL: no apparent distress, appearing age-appropriate. GASTROINTESTINAL: abdomen soft, nontender, . NEUROLOGICAL/PSYCHIATRIC: alert, awake, and oriented x 3. Normal mood and affect. EXTREMITIES: No calf tenderness bilaterally.no pitting edema bilaterally. Musculoskeletal: no clubbing, cyanosis or edema, peripheral pulses 2+ in all extremities Assessment/Plan at 28w6d High Risk third trimester 28w6d Plan: routine care Class C DM - s/p [facility] admission for Diabetic control. Type I DM with microalbuminuria, diagnosed age 9 - taking [id number] units qHS and Novolog sliding scale, does not accurately estimate carbs, continues to do pre- regimen - states her diet is not consistent - never diagnosed with DKA per patient - Hgb A1C 6.8 (11/07/19) - followed by [facility] and endocrine (Dr. Erwin, last telehealth visit 09/27) BS log reviewed today-fastings with some 3 hypoglycemic values 2hpp with some elevations. - - baseline 24h urine collection pending - baseline EKG 11/14 normal sinus rhythm - takingASA 81 daily - q4w growth USG scheduled 12/05 - on insulin split-dose regimen AM N26 R13 PM N10 [id number] improvement in glycemic control Will change regimen to AM 26N/13R PM 10R/6N@HS Needs f/u growth q4wks, NST weekly starting at 32wks then 2xwkly @36wks. Delivery at 37wks Chlamydia 11/07/2019 09:16 Chlamydia Amplified Assay Positive (A) GC Amplified Assay Negative - s/p treatmentearlier this week,states she abstained from intercourse until partner was treatedas well -ALEJANDRO neg 11/17/19 CF carrier -S/p genetic counseling - tested negative - NIPT low risk COVID-19 SCREEN: This patient is consideredlowrisk for COVID-19 infection. Component Value Date/Time COVID19 Not Detected 11/14/2019 04:53 PM Antepartum course reviewed - seronegative, Rimm, VZVnot imm,A+/IATneg, GBSunk, PapOSH 06/2019 - H/H, plt:11.7/ 36.9,252on 11/07/19 [facility] (transferred care from Dr. Pérez due toCDM) Fetus - Presentation on admission:cephalic, ANGELES 10cm, DVP 3.28 cm -Anteriorplacenta - MFM USG 11/08/19: EFW 944g (38%ile), ANGELES 14 cm. q4w growth. Next scheduled 12/05 - Daily NST pending -Normalanatomy scan and echo - NIPT low risk This visit did not involve counseling and coordination that comprised more than 50% of the visit time. documented in this encounter Plan of Treatment Date Type Specialty Care Team Description 11/29/2019 Office Visit Endocrinology Diabetes & Denys Erwin MD [facility] [address] [place] [address] [phone] 12/01/2019 Routine OB Satellites Risk, Visit [place]/High 12/06/2019 Paper Box Cutter Visit Maternal Medicine 01/03/2020 Paper Box Cutter Visit Maternal Medicine 01/31/2020 Paper Box Cutter Visit Maternal Medicine Health Maintenance Due Date Last Done Comments EYE EXAM 2004 PAP SMEAR 12/05/2015 LDL-C 04/29/2020 04/29/2019 URINE MICROALBUMIN 05/10/2020 05/10/2019 HgA1C 05/24/2020 11/22/2019, 11/07/2019, 08/17/2019, Additional history exists FOOT EXAM 08/03/2020 08/03/2019, 08/03/2019 CREATININE (SERUM) 11/06/2020 11/07/2019, 08/17/2019, 04/29/2019, Additional history exists CHLAMYDIA SCREENING 11/21/2020 11/22/2019, 11/14/2019, 11/07/2019 PNEUMOCOCCAL 0-64 YEARS 11/21/2020 Postpone d from COMBINED SERIES (1 of 1 - 2000 ( or PPSV23) ) VARICELLA VACCINES (2 of 2 11/21/2020 11/01/2008 Postp oned from - 13+ 2-dose series) 11/29/2008 ( or ) Depression Screening 11/23/2020 11/24/2019 DTaP,Tdap,and Td Vaccines 11/21/2029 11/22/2019, 11/01/2008 (3 - Td) HPV VACCINES Completed 01/25/2010, 11/01/2008 INFLUENZA VACCINE Completed 04/29/2019, 04/14/2011, 05/13/2010, Additional history exists documented as of this encounter Procedures Procedure Name Priority Date/Time Associated Diagnosis Comme nts POCT URINALYSIS Routine 11/24/2019 3:20 PM Supervision of edwar freeman Results for this CDT risk in procedure are in third trimester the results section. documented in this encounter Results POCT URINALYSIS W SPECIFIC GRAVITY (11/24/2019 3:20 PM CDT) Pathologist Sig nature POCT U SP GRAV . 1.005 - 1.025 mg/dl POCT PH U 6 5 - 8 mg/dl POCT U LEUK EST neg Negative - Negative POCT U NIT neg Negative - Negative POCT U PROT 1+ Negative - Negative POCT U GLU neg Negative - Negative POCT U KETONE neg Negative - Negative POCT U UROBILI . 0.2 - 1 mg/dl POCT U BILI . Negative - Negative POCT U BLD neg Negative - Negative POCT U COLOR POCT U APPEAR Specimen Urine - URINE, CLEAN CATCH documented in this encounter Visit Diagnoses Diagnosis Modified White class C pregestational di abetes mellitus - Primary Supervision of high risk in th ird trimester Unspecified high-risk 28 weeks gestation of state, incidental Chlamydia Other specified chlamydial infection, in conditions classified elsewhere and of unspecified site Cystic fibrosis carrier Cystic fibrosis gene carrier documented in this encounter Insurance Payer Benefit Plan / Subscriber ID Effective Dates Phone Addre ss Type Group [place] CH[place]DRENS xxxxxxxxx 2019-Present Medicaid HEALTH PLAN - HEALTH MANAGED MEDICAID [id number] documented as of this encounter
[2019-11-25 05:49] LABS: Absolute Lymphocytes (CBC) 1.6 K/uL (0.7-4.9); Basophils % 0.4 % (0-1.3); Hematocrit 36.7 % (36.0-45.0); Lymphocytes % 18.6 % (15.3-44.8); MPV 8.7 fL (7.6-11.3); RBC Red Blood Cell Count 4.07 M/uL (3.86-4.86)
[2019-11-25 05:54] LABS: Urine Blood NEGATIVE (NEG); Urine Glucose 2+ (NEG); Urine Protein NEGATIVE (NEG); Urine pH 6.5 (5.0-7.0)
[2019-11-25 07:17] LABS: ALT/SGPT 18 U/L (12-78); AST/SGOT 20 U/L (15-37); Albumin 2.7 g/dL (3.4-5.0); Alkaline Phosphatase 67 U/L (45-117); BUN Blood Urea Nitrogen 10 mg/dL (7-18); Bicarbonate 25 mmol/L (21-32); Bilirubin Direct < 0.1 mg/dL (0-0.2); Bilirubin Total 0.3 mg/dL (0.2-1.0); Glucose Level 136 mg/dL (74-106); HCG, Quantitative 13679 mIU/mL (1-3); Potassium 3.9 mmol/L (3.5-5.1); Protein, Total 7.1 g/dL (6.4-8.2); Sodium Level 140 mmol/L (136-145)
[2019-11-25 07:51] VITALS: TEMP 96.8
[2019-11-25 08:00] VITALS: O2SAT 100
[2019-11-25 08:02] VITALS: BP 122/89
--- NOTE | 2019-11-28 16:47 | ER ---
Nurse's Notes [facility] Name: Sri Rosales Age: 23 yrs Sex: Female : 1995 Arrival Date: 11/25/2019 Time: 04:48 Bed 2 Private MD: Diagnosis: Hypoglycemia, unspecified; related conditions, unspecified Presentation: 11/24 04:48 Chief complaint: EMS states: "we were initially called out for a patient with high jd3 blood sugar. on arrival the pt's blood sugar was 25 and she was altered, so we initiated a 20 G to the left AC and gave an amp of D50. she woke up and became alert and oriented X 4 with a glucose of 159. right as we were pulling in to the hospital we rechecked her glucose and it was already back to 99. the pt is currently 7 months with her first with no complications so far. pt also reported that her doctors have been changing her insulin doses because of the .". Coronavirus screen: Proceed with normal triage. Ebola Screen: Patient negative for fever greater than or equal to 101.5 degrees Fahrenheit, and additional compatible Ebola Virus Disease symptoms. Initial Sepsis Screen: Does the patient meet any 2 criteria? No. Patient's initial sepsis screen is negative. Does the patient have a suspected source of infection? No. Patient's initial sepsis screen is negative. Risk Assessment: Do you want to hurt yourself or someone else? Patient reports no desire to harm self or others. Onset of symptoms was November 25, 2019. 04:48 Method Of Arrival: EMS: [facility] jd3 04:48 Acuity: JULIANO 3 jd3 04:58 Care prior to arrival: IV initiated. 20 GA, in the left antecubital area, Glucose jd3 check: 25. Care prior to arrival: Glucose check: 159. Care prior to arrival: Glucose check: 99. 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 - Social history:: Smoking status: Patient denies any tobacco usage or history of. Screenin:57 Abuse screen: Denies threats or abuse. Nutritional screening: No deficits noted. jd3 Tuberculosis screening: No symptoms or risk factors identified. Fall Risk IV access (20 points). Ambulatory Aid- None/Bed Rest/Nurse Assist (0 pts). Gait- Normal/Bed Rest/Wheelchair (0 pts) Mental Status- Oriented to own ability (0 pts). Total Farmer Fall Scale indicates No Risk (0-24 pts). Assessment: 04:56 General: Appears in no apparent distress. comfortable, Behavior is calm, cooperative, jd3 appropriate for age. Pain: Denies pain. Neuro: Level of Consciousness is awake, alert, obeys commands, Oriented to person, place, time, situation, Reports dizziness. Cardiovascular: Denies chest pain, Capillary refill < 3 seconds Patient's skin is warm and dry. Respiratory: Airway is patent Respiratory effort is even, unlabored, Respiratory pattern is regular, symmetrical, Denies cough, shortness of breath. GI: Abdomen is round Abd is soft and non tender X 4 quads. Patient currently denies diarrhea, nausea, vomiting. : No signs and/or symptoms were reported regarding the genitourinary system. EENT: No signs and/or symptoms were reported regarding the EENT system. Derm: Skin is intact, Skin is dry, Skin is normal, Skin temperature is warm. Musculoskeletal: Circulation, motion, and sensation intact. Range of motion: intact in all extremities. 05:28 Reassessment: Patient appears in no apparent distress at this time. Patient and/or jd3 family updated on plan of care and expected duration. Pain level reassessed. Patient is alert, oriented x 3, equal unlabored respirations, skin warm/dry/pink. Madhuri nuñez nurse at bedside using Doppler to assess heart tones. heart tones at 132. Patient denies pain at this time. 06:34 Reassessment: Patient appears in no apparent distress at this time. Patient and/or jd3 family updated on plan of care and expected duration. Pain level reassessed. Patient is alert, oriented x 3, equal unlabored respirations, skin warm/dry/pink. Patient denies pain at this time. 07:25 Reassessment: Dr. Jimenes at bedside discussing results and POC, BGL 122 at this time jl7 Patient denies pain at this time. Patient states feeling better. Patient states symptoms have improved. Vital Signs: 04:53 BP 123 / 84; Pulse 79; Resp 17 S; Temp 96.8(TE); Pulse Ox 100% on R/A; Weight 72.57 kg jd3 (R); Height 5 ft. 9 in. (175.26 cm) (R); Pain 0/10; 05:30 BP 128 / 89; Pulse 74; Resp 16 S; Pulse Ox 99% on R/A; jd3 06:33 Pulse 73; Resp 16 S; Pulse Ox 100% on R/A; jd3 07:15 BP 122 / 89; Pulse 89; Resp 16; Pulse Ox 100% ; Pain 0/10; jl7 04:53 Body Mass Index 23.63 (72.57 kg, 175.26 cm) d3 ED Course: 04:48 Patient arrived in ED. cl3 04:48 Russ Jimenes MD is Attending Physician. 7 04:48 Rubén Humphrey RN is Primary Nurse. jd3 04:52 Triage completed. jd3 04:54 Arm band placed on. jd3 04:57 Patient has correct armband on for positive identification. Bed in low position. Call [facility] light in reach. Side rails up X2. Pulse ox on. NIBP on. 04:58 Maintain EMS IV. Dressing intact. Good blood return noted. Site clean \\T\\ dry. Gauge \\T\\ rosemarie 3 site: 20 G to the left AC.. 07:38 No provider procedures requiring assistance completed. IV discontinued, intact, jl7 bleeding controlled, No redness/swelling at site. Pressure dressing applied. Administered Medications: 04:52 Drug: [id number] 50 ml Route: IVP; Site: left antecubital; rr5 06:00 Follow up: Response: No adverse reaction rr5 Outcome: 07:26 Discharge ordered by . 7 07:38 Discharged to home ambulatory. jl7 07:38 Condition: stable 07:38 Discharge instructions given to patient, Instructed on discharge instructions, follow up and referral plans. Demonstrated understanding of instructions, follow-up care. 07:38 Patient left the ED. jl7 Signatures: Cruz Hidalgo RN RN jl7 Rubén Humphrey, RN RN jd3 Gerardo Denis, RN RN rr5 Ghassan Lopez cl3 Russ Jimenes MD MD mh7 Corrections: (The following items were deleted from the chart) 04:56 04:48 Chief complaint: EMS states: "we were initially called out for a patient with jd3 high blood sugar. on arrival the pt's blood sugar was 25 and she was altered, so we initiated a 20 G to the left AC and gave an amp of D50. she woke up and became alert and oriented X 4 with a glucose of 159. right as we were pulling in to the hospital we rechecked her glucose and it was already back to 99." jd3 06:38 06:33 Pulse 73bpm; Resp 16bpm; Spontaneous; Pulse Ox 100% RA; jd3 jd3
--- NOTE | 2019-11-28 16:47 | EDPHYS ---
Physician Documentation [facility] Name: Sri Rosales Age: 23 yrs Sex: Female : 1995 Arrival Date: 11/25/2019 Time: 04:48 Bed 2 Private MD: ED Physician Russ Jimenes HPI: 11/24 04:50 This 23 yrs old Female presents to ER via Unassigned with complaints of Low mh7 Blood Sugar. 04:50 The patient or guardian reports hypoglycemia, that was potentially precipitated by mh7 adjusting medication dose, with the patient's symptoms witnessed by family, Treatment prior to arrival includes: EMS D 10. Onset: The symptoms/episode began/occurred today. Associated signs and symptoms: Pertinent negatives: anorexia, constipation, decreased urine output, diaphoresis, diarrhea, dry skin, hair loss, ketones in urine, nausea, polydipsia, polyphagia. Current symptoms: In the emergency department the patient's symptoms have resolved, the patient is alert and fully oriented, has normal speech, has normal responsiveness, has no confusion. The patient has experienced similar episodes in the past, several times. 04:50 Patient is 7 months and states that her doctor changed her insulin yesterday mh7 which caused her blood sugar to go low. She denies any headache, chest pain, abdominal pain, pelvic pain, SOB, vaginal bleeding, fever, nausea, vomiting, decreased appetite, dysuria, or other complaints.. 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 - Social history:: Smoking status: Patient denies any tobacco usage or history of. ROS: 04:50 Constitutional: Negative for fever, chills, and weight loss, Eyes: Negative for injury, mh7 pain, redness, and discharge, ENT: Negative for injury, pain, and discharge, Neck: Negative for injury, pain, and swelling, Cardiovascular: Negative for chest pain, palpitations, and edema, Respiratory: Negative for shortness of breath, cough, wheezing, and pleuritic chest pain, Abdomen/GI: Negative for abdominal pain, nausea, vomiting, diarrhea, and constipation, Back: Negative for injury and pain, : Negative for injury, bleeding, discharge, and swelling, MS/Extremity: Negative for injury and deformity, Skin: Negative for injury, rash, and discoloration, Neuro: Negative for headache, weakness, numbness, tingling, and seizure, Psych: Negative for depression, anxiety, suicide ideation, homicidal ideation, and hallucinations, Allergy/Immunology: Negative for hives, rash, and allergies, Endocrine: Negative for neck swelling, polydipsia, polyuria, polyphagia, and marked weight changes, Hematologic/Lymphatic: Negative for swollen nodes, abnormal bleeding, and unusual bruising. Exam: 04:50 Constitutional: This is a well developed, well nourished patient who is awake, alert, mh7 and in no acute distress. Head/Face: Normocephalic, atraumatic. Eyes: Pupils equal round and reactive to light, extra-ocular motions intact. Lids and lashes normal. Conjunctiva and sclera are non-icteric and not injected. Cornea within normal limits. Periorbital areas with no swelling, redness, or edema. Neck: Trachea midline, no thyromegaly or masses palpated, and no cervical lymphadenopathy. Supple, full range of motion without nuchal rigidity, or vertebral point tenderness. No Meningismus. Chest/axilla: Normal chest wall appearance and motion. Nontender with no deformity. No lesions are appreciated. Cardiovascular: Regular rate and rhythm with a normal S1 and S2. No gallops, murmurs, or rubs. Normal PMI, no JVD. No pulse deficits. Respiratory: Lungs have equal breath sounds bilaterally, clear to auscultation and percussion. No rales, rhonchi or wheezes noted. No increased work of breathing, no retractions or nasal flaring. 04:50 Back: No spinal tenderness. No costovertebral tenderness. Full range of motion. 04:50 Skin: Warm, dry with normal turgor. Normal color with no rashes, no lesions, and no evidence of cellulitis. MS/ Extremity: Pulses equal, no cyanosis. Neurovascular intact. Full, normal range of motion. Neuro: Awake and alert, GCS 15, oriented to person, place, time, and situation. Cranial nerves II-XII grossly intact. Motor strength 5/5 in all extremities. Sensory grossly intact. Cerebellar exam normal. Normal gait. Psych: Awake, alert, with orientation to person, place and time. Behavior, mood, and affect are within normal limits. 04:50 Abdomen/GI: Inspection: abdomen appears normal, Bowel sounds: normal, in all quadrants, Palpation: abdomen is soft and non-tender, in all quadrants, Indicators: McBurney's point is not tender, Martinez's sign is negative, Rovsing's sign is negative, Obturator sign is negative, Psoas sign is negative, Liver: no appreciated palpable abnormalities, Hernia: not appreciated. 04:50 : CVA tenderness, is absent, Pelvic Exam: The exam is refused by the patient/guardian. The risks and consequences are understood by the patient, Gravid exam: Fundal height: consistent with gestational age, Bladder: is normal. Vital Signs: 04:53 BP 123 / 84; Pulse 79; Resp 17 S; Temp 96.8(TE); Pulse Ox 100% on R/A; Weight 72.57 kg jd3 (R); Height 5 ft. 9 in. (175.26 cm) (R); Pain 0/10; 05:30 BP 128 / 89; Pulse 74; Resp 16 S; Pulse Ox 99% on R/A; jd3 06:33 Pulse 73; Resp 16 S; Pulse Ox 100% on R/A; jd3 07:15 BP 122 / 89; Pulse 89; Resp 16; Pulse Ox 100% ; Pain 0/10; jl7 04:53 Body Mass Index 23.63 (72.57 kg, 175.26 cm) jd3 MDM: 04:48 Patient medically screened. [facility] 07:17 Differential diagnosis: gestational diabetes, hypoglycemic episode, myxedema coma. Data [facility] reviewed: vital signs, nurses notes, EMS record, lab test result(s), Beta HCG: CBC, electrolytes, urinalysis. Data interpreted: ekg monitor tech: rate is 73 beats/min, rhythm is normal sinus rhythm, regular, Interpretation: normal rate, normal rhythm, Pulse oximetry: on room air is 100 %. Interpretation: normal. 07:22 Counseling: I had a detailed discussion with the patient and/or guardian regarding: the [facility] historical points, exam findings, and any diagnostic results supporting the discharge/admit diagnosis, lab results, the need for outpatient follow up, to return to the emergency department if symptoms worsen or persist or if there are any questions or concerns that arise at home. Response to treatment: the patient's symptoms have resolved after treatment, the patient's blood pressure is in an acceptable range, mental status has returned to baseline, the patient no longer shows bradycardia, the patient is not short of breath, the patient is not tachycardic, the patient's temperature has normalized. ED course: Feels better, NAD, VSS, no focal neurological deficits. KDR=189 bpm. Discussed all test results and findings with the patient and answered all of her questions. She requests to be discharged from the ED at this time. She will follow up with her doctor but agreed to return to the Ed if worsening of condition or other concerns.. 11/24 04:49 Order name: CBC with Diff; Complete Time: 05:58 7 11/24 04:49 Order name: Basic Metabolic Panel; Complete Time: 07:18 7 11/24 04:49 Order name: LFT's; Complete Time: 07:18 7 11/24 04:49 Order name: Quantitative Hcg; Complete Time: 07:18 [facility] 11/24 04:56 Order name: Glucose, Ancillary Testing; Complete Time: 05:33 EDMS 11/24 05:37 Order name: Glucose, Ancillary Testing; Complete Time: 05:58 [facility] 11/24 04:49 Order name: Saline Lock; Complete Time: 04:59 7 11/24 04:50 Order name: Urine Dipstick-Ancillary (obtain specimen); Complete Time: 05:49 7 11/24 04:50 Order name: Heart Tones; Complete Time: 05:34 7 11/24 04:51 Order name: Glucose Level; Complete Time: 04:52 rr5 11/24 05:50 Order name: Urine Dipstick--Ancillary (enter results); Complete Time: 05:58 mt 11/24 05:50 Order name: Urine --Ancillary (enter results); Complete Time: 05:58 mt 11/24 07:33 Order name: Glucose, Ancillary Testing EDMS Administered Medications: 04:52 Drug: [id number] 50 ml Route: IVP; Site: left antecubital; rr5 06:00 Follow up: Response: No adverse reaction rr5 Disposition: 11/25/19 07:26 Discharged to Home. Impression: Hypoglycemia, unspecified, related conditions, unspecified. - Condition is Stable. - Discharge Instructions: Hypoglycemia, [id number]. - Medication Reconciliation Form, Thank You Letter, Antibiotic Education, Prescription Opioid Use form. - Follow up: Private Physician; When: Today; Reason: Worsening of condition, Re-evaluation by your physician. - Problem is an ongoing problem. - Symptoms have improved. Signatures: Dispatcher [employer] EDMS Cruz Hidalgo RN RN jl7 Rubén Humphrey RN RN jGerardo Chavez RN RN rr5 Russ Jimenes MD MD mh7 Corrections: (The following items were deleted from the chart) 07:38 07:26 11/25/2019 07:26 Discharged to Home. Impression: Hypoglycemia, unspecified; jl7 related conditions, unspecified. Condition is Stable. Forms are Medication Reconciliation Form, Thank You Letter, Antibiotic Education, Prescription Opioid Use. Follow up: Private Physician; When: Today; Reason: Worsening of condition, Re-evaluation by your physician. Problem is an ongoing problem. Symptoms have improved. mh7
== END 2019-11-25 07:38 | disposition home or self-care (01) ==
LOC: ER 04:38
DX: O24.912 Unspecified diabetes mellitus in pregnancy, second trimester (principal); Z3A.28 28 weeks gestation of pregnancy; Z79.4 Long term (current) use of insulin
CPT/HCPCS: 36415; 80048; 80076; 81003; 81025; 82947; 84702; 85025; 96374; 99284

== ENCOUNTER 2022-06-19 06:17 | Observation (INO) | payer OTHER ==
--- OUTSIDE RECORDS SUMMARY | 2022-06-19 06:21 | XMS REPORT | Continuity of Care Document ---
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 2020-01-09 Outpatient R NATASHA MI [facility] [id number] Univers 15:00:00 15:00:00 NATASHA MI of [facility] 2020-01-09 2020-01-09 Routine Faculty, Gustabo Hernandez [facility] 1.2 .840.114 [id number] Univers 12:37:52 13:07:52 Natasha Mi HUMAN SERVICES WORKER 350.1.13.10 ity of Visit REGIONAL 4.2.7.2.686 [place] as MATERNAL [phone] Med ical & CHILD [address] [place] [address] 2020-01-09 2020-01-09 Orders Doctor RICARDO 1.2.840.114 [id number] Univers 00:00:00 00:00:00 Only Unassigned, TAPAN 350.1.13.10 ity of [place] [facility] 4.2.7.2.686 Irineo as [phone] [address] 2020-01-03 2020-01-05 Hospital RICARDO Mi 1.2.840.114 [id number] Univers 00:29:00 13:00:00 Encounter Natasha PHELAN 350.1.13.10 ity of [facility] 4.2.7.2.686 [place] as [phone] [address] 2020-01-05 2020-01-05 [facility] [id number] Univers 11:00:00 11:00:00 ROSHUNDA ity o f [facility] 2020-01-04 2020-01-04 Emergency Operator 2, [facility] Room UNIVERSIT 1 .2.840.114 [id number] Univers 15:40:50 16:25:50 Visit Tyron Mistry [facility] 350.1.13. 10 ity of CLINICS [place] [id number] [address] 2020-01-03 2020-01-03 Outpatient [facility] [id number] Univers 15:15:00 15:15:00 JG ity [facility] 2020-01-03 2020-01-03 Telephone RICARDO Mi 1.2.801.453 [id number] Univers 00:00:00 00:00:00 Natasha PHELAN 350.1.13.10 ity of [facility] 4.2.7.2.686 [place] as [phone] [address] 2020-01-02 2020-01-02 Outpatient R [facility] [id number] Univers 15:30:00 15:30:00 ity of [facility] 2020-01-02 2020-01-02 Telemedici Faculty, Gustabo [facility] 1.2.840.114 [id number] Univers 08:11:02 08:41:02 ne Visit Arnol Lawrence HUMAN SERVICES WORKER 350.1.13.10 ity of REGIONAL 4.2.7.2.686 [place] as MATERNAL [phone] Med ical & CHILD 107 [facility] 2019-12-29 2019-12-29 Routine [facility] 1.2.840.114 [id number] Univers 12:46:54 14:00:32 Roshunda R HUMAN SERVICES WORKER 350.1.13.10 ity of Visit REGIONAL 4.2.7.2.686 Irineo as MATERNAL [phone] Med ical & CHILD [address] [facility] 2019-12-29 2019-12-29 Outpatient R KAMINI [facility] [id number] Univers 13:15:00 13:15:00 ROSHUNDA ity o f [facility] 2019-12-26 2019-12-26 Telemedici Faculty, Gustabo [facility] 1.2.840.114 [id number] Univers 12:36:31 14:47:45 ne Visit Maile Shi HUMAN SERVICES WORKER 350.1.13.10 ity of [facility] 4.2.7.2.686 [place] as MATERNAL [phone] [address] 2019-12-26 2019-12-26 Outpatient R [facility] [id number] Univers 13:30:00 13:30:00 ity of [facility] 2019-12-26 2019-12-26 Telephone [facility] 1.2.840.114 [id number] Univers 00:00:00 00:00:00 Ines Burden HUMAN SERVICES WORKER 350.1.13.10 ity of [facility] 4.2.7.2.686 Irineo as MATERNAL [phone] [facility] & CHILD [address] [place] [address] 2019-12-19 2019-12-22 Hospital Huang RICARDO 1.2.840.114 [id number] Univers 23:13:00 15:27:00 Encounter Natasha Minaya TAPAN 350.1.13.10 ity of [facility] 4.2.7.2.686 [place] as [phone] [address] 2019-12-22 2019-12-22 Outpatient R SYLVAIN [facility] [id number] Univers 15:15:00 15:15:00 INES ity o f [facility] 2019-12-19 2019-12-19 Routine [facility] 1.2.840.114 [id number] Univers 15:20:38 16:31:24 Roskylaha R HUMAN SERVICES WORKER 350.1.13.10 ity of Visit REGIONAL 4.2.7.2.686 Irineo as MATERNAL [phone] [facility] & CHILD [address] [place] [address] 2019-12-19 2019-12-19 Outpatient R [facility] [id number] Univers 15:15:00 15:15:00 ity of [facility] 2019-12-12 2019-12-12 Patient SVETA Perales 1.2.677.411 [id number] Univers 00:00:00 00:00:00 Secure Msg Dustin Y [facility] 350.1.13.10 ity of CL[place] [phone] [facility] [address] 2019-12-09 2019-12-09 Patient Doctor RICARDO 1.2.840.114 [id number] Univers 00:00:00 00:00:00 Secure Msg Unassigned, TAPAN 350.1.13.10 ity of [place] [facility] 4.2.7.2.686 Irineo as [id number] [facility] [address] 2019-12-06 2019-12-06 Outpatient P [facility] [id number] Univers 15:15:00 15:15:00 ity of [facility] 2019-12-05 2019-12-05 Telemedici Faculty, Gustabo Hernandez [facility] 1.2.840.114 [id number] Univers 08:09:24 16:21:11 ne Visit Sarmiento Krea Galvan HUMAN SERVICES WORKER 350.1 .13.10 ity of REGIONAL 4.2.7.2.686 [place] as MATERNAL [phone] Med ical & CHILD 107 [facility] 2019-12-05 2019-12-05 Outpatient R [facility] [id number] Univers 15:30:00 15:30:00 ity of [facility] 2019-12-01 2019-12-01 Routine Risk, Ekx-Cqppl-Tx/High [facility] 1. 2.840.114 [id number] Univers 13:29:33 14:43:56 Nathalia Verdin HUMAN SERVICES WORKER 350.1.13.10 ity of Visit REGIONAL 4.2.7.2.686 [place] as MATERNAL [id number] Med ical & CHILD 107 [facility] 2019-12-01 2019-12-01 Outpatient R [facility] [id number] Univers 13:30:00 13:30:00 ity of [facility] 2019-12-01 2019-12-01 Orders Doctor RICARDO 1.2.840.114 [id number] Univers 00:00:00 00:00:00 Only Unassigned, TAPAN 350.1.13.10 ity of [place] [facility] 4.2.7.2.686 [place] as [phone] [address] 2019-11-29 2019-11-29 Outpatient R RIP [facility] [id number] Univers 10:00:00 10:00:00 WENTONG ity of [facility] 2019-11-24 2019-11-24 Routine Risk, Klm-Dxbhs-Fg/High [facility] 1. 2.840.114 [id number] Univers 15:04:40 15:46:35 Meredith Kingsley HUMAN SERVICES WORKER 350.1.13.10 ity of Visit REGIONAL 4.2.7.2.686 [place] as MATERNAL [phone] Med ical & CHILD [address] [place] [address] 2019-11-24 2019-11-24 Routine Risk, [facility] 1.2.840.114 [id number] 15:04:40 15:46:35 Ang-Rmchp-N HUMAN SERVICES WORKER 350.1.13.10 Visit p/High REGIONAL 4.2.7.2.686 MATERNAL [phone] & CHILD [address] [place] [address] 2019-11-24 2019-11-24 Outpatient R [facility] [id number] Univers 15:00:00 15:00:00 ity [facility] 2019-11-22 2019-11-22 Routine Kamini [facility] 1.2.840.114 [id number] Univers 15:53:15 16:34:14 Roshunda R HUMAN SERVICES WORKER 350.1.13.10 ity of Visit REGIONAL 4.2.7.2.686 Irineo as MATERNAL [phone] [facility] ical & CHILD [address] [place] [address] 2019-11-22 2019-11-22 Routine Suárez, [facility] 1.2.840.114 [id number] 15:53:15 16:34:14 Roshunda R HUMAN SERVICES WORKER 350.1.13.10 Visit REGIONAL 4.2.7.2.686 MATERNAL [phone] & CHILD 107 [email or web address] 2019-11-22 2019-11-22 Outpatient R KAMINI, [facility] [id number] Univers 15:45:00 15:45:00 ROSCORONANDA ity o f [facility] 2019-11-17 2019-11-17 Patient Rip [facility] 1.2.840.114 [id number] Univers 00:00:00 00:00:00 Secure Msg Rita Bradshaw 350.1.13.10 ity of [place] [phone] Ks dical [facility] 220 [facility] 2019-11-17 2019-11-17 Patient Huang, [facility] 1.2.541.275 [id number] Univers 00:00:00 00:00:00 Secure Msg [facility] Y HEALTH 350.1.13.10 ity of CL[place] [phone] [facility] [address] 2019-11-16 2019-11-16 [facility] 1.2.840.114 [id number] Univers 00:00:00 00:00:00 Comfort Y HEALTH 350.1.13.10 ity of [place] [id number] [facility] [address] 2019-11-16 2019-11-16 Telephone [facility] 1.2.840.114 [id number] 00:00:00 00:00:00 Comfort Y HEALTH 350.1.13.10 CLINICS 4.2.7.2.686 [id number] Critical access hospital 2019-11-14 2019-11-15 [facility] 1.2.840.114 [id number] Univers 16:38:00 17:52:00 Encounter Koffi TAPAN 350.1.13.10 ity of [facility] 4.2.7.2.686 Irineo as [phone] [facility] [address] 2019-11-14 2019-11-15 [facility] 1.2.840.114 [id number] 16:38:00 17:52:00 Encounter Koffi TAPAN 350.1.13.10 [facility] 4.2.7.2.686 [phone] [facility] 2019-11-08 2019-11-15 Emergency Operator Ultrasound, [facility] 1.2 .840.114 [id number] Univers 15:08:04 08:49:05 Visit Ines Narayan HUMAN SERVICES WORKER 350.1.13. 10 ity of REGIONAL 4.2.7.2.686 [place] as MATERNAL [phone] Med ical & CHILD 369 [facility] 2019-11-08 2019-11-15 Emergency Operator Ultrasound, [facility] 1.2.840.114 [id number] 15:08:04 08:49:05 [facility] HUMAN SERVICES WORKER 350.1.13.10 REGIONAL 4.2.7.2.686 MATERNAL [phone] & CHILD [address] [place] [address] 2019-11-14 2019-11-14 Outpatient R NAMITA [facility] [id number] Univers 09:00:00 09:00:00 JONAH ity [facility] 2019-11-11 2019-11-11 Patient Doctor [facility] 1.2.840.114 [id number] Univers 00:00:00 00:00:00 Secure Msg Unassigned, HUMAN SERVICES WORKER 350.1.13.10 ity of [place] REGIONAL 4.2.7.2.686 Irineo as MATERNAL [phone] Med ical & CHILD [address] [place] [address] 2019-11-09 2019-11-09 Case Huang [facility] 1.2.840.114 [id number] Univers 00:00:00 00:00:00 Management Natasha Minaya HUMAN SERVICES WORKER 350.1.13.10 ity of REGIONAL 4.2.7.2.686 [place]o as MATERNAL [id number] Med ical & CHILD 107 [facility] 2019-11-09 2019-11-09 Telephone Kamini [facility] 1.2.296.714 [id number] Univers 00:00:00 00:00:00 Noelle Fan HUMAN SERVICES WORKER 350.1.13.10 ity of REGIONAL 4.2.7.2.686 [place] as MATERNAL [phone] Med ical & CHILD [address] [place] [address] 2019-11-09 2019-11-09 Patient Doctor [facility] 1.2.840.114 [id number] Univers 00:00:00 00:00:00 Secure Msg Unassigned, HUMAN SERVICES WORKER 350.1.13.10 ity of [place] [facility] 4.2.7.2.686 Irineo as MATERNAL [id number] [facility] & [address] 2019-11-09 2019-11-09 Telephone Faculty, [facility] 1.2.840.114 [id number] Univers 00:00:00 00:00:00 [facility] HUMAN SERVICES WORKER 350.1.13.10 ity of [facility] 4.2.7.2.686 [place]ineo as MATERNAL [phone] [address] 2019-11-09 2019-11-09 Telephone SVETA Mi 1.2.840.114 [id number] Univers 00:00:00 00:00:00 Natasha Minaya Y HEALTH 350.1.13.10 ity of [facility] 4.2.7.2.[place] [phone] [address] 2019-11-08 2019-11-08 Outpatient P [facility] [id number] Univers 15:00:00 15:00:00 ity of [facility] 2019-11-08 2019-11-08 Telephone Faculty, [facility] 1.2.840.114 [id number] Univers 00:00:00 00:00:00 [facility] HUMAN SERVICES WORKER 350.1.13.10 ity of [facility] 4.2.7.2.686 [place]ineo as MATERNAL [phone] [facility] CHILD [address] [place] [address] 2019-11-07 2019-11-07 Telemedici Faculty, [facility] 1.2.840.114 [id number] Univers 08:18:59 15:49:28 ne Visit Natasha Mi HUMAN SERVICES WORKER 350.1.13.10 ity of [facility] 4.2.7.2.686 [place] as MATERNAL [phone] [address] 2019-11-07 2019-11-07 Routine Kamini [facility] 1.2.840.114 [id number] Univers 08:09:59 09:10:54 Roshunda R HUMAN SERVICES WORKER 350.1.13.10 ity of Visit [facility] 4.2.7.2.686 Irineo as MATERNAL [phone] Med ical & CHILD [address] [place] [address] 2019-11-07 2019-11-07 Outpatient R KAMINI [facility] [id number] Univers 08:00:00 08:00:00 NOELLE ity o f [facility] 2019-11-07 2019-11-07 Orders Doctor RICARDO 1.2.840.114 [id number] Univers 00:00:00 00:00:00 Only Unassigned, TAPAN 350.1.13.10 ity of [place] [facility] 4.2.7.2.686 [place]ineo as [phone] [address] 2019-10-27 2019-10-27 Outpatient R NAMITA [facility] [id number] Univers 08:30:00 08:30:00 SHI ity of [facility] 2019-10-19 2019-10-[address] [facility] 1..840.114 7 [id number] Univers 08:12:37 10:15:30 ne Visit [facility] 350.1.13.10 ity of [place] [phone] [place] dical nal [address] [place] [address] 2019-10-19 2019-10-19 Outpatient R BETH SULLIVAN [facility] [id number] Univers 09:45:00 09:45:00 ity of [facility] 2019-10-19 2019-10-19 Telephone Faculty, [facility] 1..840.114 [id number] Univers 00:00:00 00:00:00 Ang Rmchp HUMAN SERVICES WORKER 350.1.13.10 ity of [facility] 4.2.7.2.686 [place] as MATERNAL [phone] [facility] & CHILD [address] [place] [address] 2019-09-29 2019-09-29 Patient Beth Sullivan [facility] 1.2.232.933 [id number] Univers 00:00:00 00:00:00 Secure Msg [facility] 350.1.13.10 ity of [place]2.7.2.[place] [phone] [place] dical nal [address] [place] [address] 2019-09-28 2019-09-28 Telemedici Rip [facility] 1.2.840.114 [id number] Univers 08:09:37 12:56:00 ne Visit Rita Bradshaw 350.1.13.10 ity of [place].2.7.2.[place] [phone] Ks dical [facility] 220 [facility] 2019-09-28 2019-09-28 Outpatient R RIP [facility] [id number] Univers 08:00:00 08:00:00 WENTONG ity of [facility] 2019-09-28 2019-09-28 Patient [facility] 1.2.840.114 [id number] Univers 00:00:00 00:00:00 Secure Msg Wentong MULTISPEC 350.1.13.10 ity of [place].2.7.2.[place] C[place] [id number] [facility] AND [address] DIABETES [facility] 2019-09-28 2019-09-28 Patient Rip [facility] 1.2.840.114 [id number] Univers 00:00:00 00:00:00 Secure Msg Wentong MULTISPEC 350.1.13.10 ity of [place]2.7.2.[place] [id number] [facility] AND [address] DIABETES [facility] 2019-09-28 2019-09-28 Patient Rip [facility] 1.2.840.114 [id number] Univers 00:00:00 00:00:00 Secure Msg Wentong MULTISPEC 350.1.13.10 ity of [place]7.2.[place] [phone] [address] [facility]ABETES [facility] 2019-09-26 2019-09-26 Patient Beth Sullivan [facility] 1.2.104.509 [id number] Univers 00:00:00 00:00:00 Secure Msg Rafael Guthrie 350.1.13.10 ity of [place].2.[place] [phone] [place] dical nal 134 [facility] 2019-09-23 2019-09-23 Emergency Operator 2, Adc Lab [facility] 1.2.840.114 [id number] Univers 13:12:59 13:27:59 Visit Beth Sullivanton 350.1.13.10 ity of [place].2.7.2.[place] [phone] [place] dical nal 353 [facility] 2019-09-23 2019-09-23 Outpatient R [facility] [id number] Univers 13:00:00 13:00:00 ity of [facility] 2019-09-23 2019-09-23 Telephone Beth Sullivan [facility] 1.2.840.114 [id number] Univers 00:00:00 00:00:00 Rafael Guthrie 350.1.13.10 i ty of [place].2.[place] [phone] [place] dical nal 134 [facility] 2019-09-23 2019-09-23 Telephone Beth Sullivan [facility] 1.2.840.114 [id number] Univers 00:00:00 00:00:00 Rafael Bradshaw 350.1.13.10 i ty of [place]2.7.2.[place] [phone] [place] dical nal 134 [facility] 2019-09-23 2019-09-23 Orders Doctor RICARDO 1.2.840.114 [id number] Univers 00:00:00 00:00:00 Only Unassigned, TAPAN 350.1.13.10 ity of [place] [facility] 4.2.7.2.686 Irineo as [phone] [address] 2019-09-21 2019-09-21 Emergency Operator [facility] 1.2.840. 114 [id number] Univers 13:57:39 14:10:22 Visit Beth Sullivan Rafael HUMAN SERVICES WORKER 350.1.13.10 ity of [facility] 4.2.7.2.686 Irineo as MATERNAL [phone] Med ical & CHILD [address] [place] [address] 2019-09-21 2019-09-21 Emergency Operator Ultrasound, Ericjerry [facility] 1.2 .840.114 [id number] Univers 13:01:01 13:57:15 Visit Beth Sullivan Rafael HUMAN SERVICES WORKER 350.1.13.10 ity of Arnol Lawrence [facility] 4.2.7.2.686 [place] MATERNAL [phone] Med ical & CHILD [address] [place] [address] 2019-09-21 2019-09-21 Telemedici Beth Sullivan [facility] 1.2.840.114 [id number] Univers 08:12:23 11:03:22 ne Visit Cam Guthrie 350.1.13.10 ity of [place].2.[place] [phone] [place] dical nal 134 [facility] 2019-09-21 2019-09-21 Outpatient R BETH SULLIVAN [facility] [id number] Univers 09:45:00 09:45:00 ity of [facility] 2019-09-21 2019-09-21 Beth Bello [facility] 1.2.299.979 [id number] Univers 00:00:00 00:00:00 Management Cam Guthrie 350.1.13.10 ity of [place] [phone] [place] [address] [place] [address] 2019-09-21 2019-09-21 Telephone Beth Sullivan [facility] [id number] Univers 00:00:00 00:00:00 Cam Guthrie 350.1.13.10 i [place] [phone] [place] 134 [facility] 2019-09-20 2019-09-20 [place] Beth Sullivan [facility] [id number] Univers 00:00:00 00:00:00 Management Cam Guthrie [id number] [id number] [phone] [place] [address] [place] [address] 2019-09-15 2019-09-15 [facility]phone [facility] [id number] Univers 00:00:00 00:00:00 Wentong Guthrie 350.1.13.10 i [place] [phone] [place] 220 [facility] 2019-09-14 2019-09-14 Patient Rip [facility] [id number] Univers 00:00:00 00:00:00 Secure Msg Wentong MULTISPEC [id number] [place] [phone] [facility] [address] [facility] 2019-09-12 2019-09-12 Case Etienne [facility] [id number] Univers 00:00:00 00:00:00 Management Sammi Guthrie 350.1.13.10 [place] [phone] [place] 134 [facility] 2019-09-09 2019-09-09 Patient Beth Sullivan [facility] [id number] Univers 00:00:00 00:00:00 Secure Msg Cam Guthrie 350.1.13.10 [place] [phone] [place] 134 [facility] 2019-09-06 2019-09-06 Case Beth Sullivan [facility] 1.2.272.782 [id number] Univers 00:00:00 00:00:00 Management Cam Guthrie 350.1.13.10 [place] [phone] [place] 134 [facility] 2019-08-30 2019-08-30 Patient Rip [facility] 1.2.840.114 [id number] Univers 00:00:00 00:00:00 Secure Msg Wentong Guth[place] 350.1.13.10 [place] [phone] [place] 220 [facility] 2019-08-29 2019-08-29 Patient Beth Sullivan [facility] [id number] Univers 00:00:00 00:00:00 Secure Msg Cam Guth[place] 350.1.13.10 [place] [phone] [place] 134 [facility] 2019-08-24 2019-08-24 Patient Rip [facility] 1.2.840.114 [id number] Univers 00:00:00 00:00:00 Secure Msg Wentong John [id number] [place] [phone] [facility] 220 [facility] 2019-08-24 2019-08-24 Telephone Beth Sullivan [facility] [id number] Univers 00:00:00 00:00:00 Rafael Bradshaw [id number] i [id number] [phone] [place] dic[place] 134 [facility] 2019-08-24 2019-08-24 Patient Doctor RICARDO [id number] Univers 00:00:00 00:00:00 Secure Msg Unassigned, TAPAN [id number] ity of [place] [facility] [id number] [place] as [phone] [address] 2019-08-22 2019-08-22 Routine Beth Sullivan [facility] [id number] Univers 11:44:19 12:29:44 Rafael Bradshaw [id number] ity [id number] [phone] [facility] 134 [facility] 2019-08-22 2019-08-22 Outpatient R BETH [facility]ULL[facility] [id number] Univers 11:30:00 11:30:00 ity of [facility] 2019-08-18 2019-08-18 Telephone Beth Sullivan [facility] [id number] Univers 00:00:00 00:00:00 Rafael Bradshaw [id number] i [id number] [phone] [place] dical [place] 134 [facility] 2019-08-18 2019-08-18 Telephone Beth Sullivan [facility] [id number] Univers 00:00:00 00:00:00 Rafael Bradshaw [id number] i [id number] [phone] [place] dical [place]al 134 [facility] 2019-08-17 2019-08-17 Emergency Operator 2, [facility] [id number] Univers 14:17:48 14:32:48 Visit Rita Silva [id number] it[place] of [id number] [phone] [place] 353 [facility] 2019-08-17 2019-08-17 Office Silva, [facility] [id number] Univers 13:14:59 14:12:50 Visit Rita Bradshaw [id number] i [id number] [phone] [facility] 220 [facility] 2019-08-17 2019-08-17 Telephone [facility], [facility] [id number] Univers 00:00:00 00:00:00 Rita Bradshaw [id number] [id number] [phone] [facility] 2019-08-17 2019-08-17 Orders Doctor RICARDO [id number] Univers 00:00:00 00:00:00 Only Unassigned, [place]AN [id number] ity of [place] [facility] [id number] [place] as [phone] [facility] [address] 2019-08-15 2019-08-15 Patient Beth Sullivan [place] [id number] Univers 00:00:00 00:00:00 Secure Msg Rafael Bradshaw [id number] it[place] of [id number] [phone] [place] dical nal 134 [facility] 2019-08-15 2019-08-15 Patient Rip PAPRAKASH [id number] Univers 00:00:00 00:00:00 Secure Msg Rita Bradshaw [id number] it[place] of [id number] [phone] [place] dical [place]al 220 [facility] 2019-08-03 2019-08-03 Routine Beth Sullivan [facility] [id number] Univers 09:54:48 11:54:21 Rafael Bradshaw [id number] ity of [id number] [phone] [place] dical nal 134 [facility] 2019-08-03 2019-08-03 Office Rip [facility] [id number] Univers 10:57:17 11:54:01 Visit Rita Bradshaw [id number] i [id number] [phone] [place] dical [place] 220 [facility] 2019-08-02 2019-08-02 Letter Beth Sullivan [facility] [id number] Univers 00:00:00 00:00:00 (Out) Rafael Bradshaw [id number] i [id number] [phone] [place] dical [place] 134 [facility] 2019-07-27 2019-07-27 Orders Doctor RCIARDO [id number] Univers 00:00:00 00:00:00 Only Unassigned, TAPAN [id number] ity of [place] [facility] [id number] [place] [phone] [place] [address] [place] Results This patient has no known results.
[2022-06-19 06:51] LABS: Urine Blood Trace-intact (Negative); Urine Glucose 2+ (Negative); Urine Protein Negative (Negative); Urine Specific Gravity 1.015 (1.005-1.030); Urine pH 5.5 (5.0-7.0)
[2022-06-19 06:54] LABS: Blood Gas Oxyhemoglobin 43.3 % (94-97); Blood O2 Saturation 44.4 % (92-98.5)
[2022-06-19 07:06] LABS: Urine Bacteria None Seen /HPF (<20); Urine Mucus Slight /HPF (None Seen); Urine RBC <5 /HPF (None Seen)
[2022-06-19 07:08] LABS: Absolute Lymphocytes (CBC) 1.9 K/uL (0.7-4.9); Hematocrit 41.3 % (36.0-45.0); Lymphocytes % 24.3 % (15.3-44.8); MCV 91.1 fL (80-100); RBC Red Blood Cell Count 4.54 M/uL (3.86-4.86)
[2022-06-19] MEDS ORDERED: NA CHLORIDE 0.9% 2,000 ML ONE (07:09)
[2022-06-19] MEDS ORDERED: ONDANSETRON 4 MG/2 ML VIAL ONE (07:09)
[2022-06-19 07:30] LABS: ALT/SGPT 41 U/L (13-56); AST/SGOT 38 U/L (15-37); Albumin 3.6 g/dL (3.4-5.0); Alkaline Phosphatase 148 U/L (45-117); BUN Blood Urea Nitrogen 31 mg/dL (7-18); Bicarbonate 18 mmol/L (21-32); Bilirubin Total 0.6 mg/dL (0.2-1.0); Glomerular Filtration Rate 63 ml/min (=/>90); Magnesium 2.3 mg/dL (1.6-2.4); Protein, Total 7.6 g/dL (6.4-8.2); Sodium Level 133 mmol/L (136-145); Troponin High Sensitivity 3.2 pg/mL (<58.9)
[2022-06-19 07:31] LABS: SARS-CoV-2 Antigen Rapid Res Negative (Negative)
[2022-06-19 07:35] LABS: Glucose Level 771 mg/dL (74-106)
[2022-06-19 07:36] LABS: Urine Specific Gravity/Preg 1.015 (1.005-1.030)
--- NOTE | 2022-06-19 07:59 | ER ---
Nurse's Notes [facility] Name: Sri Rosales Age: 26 yrs Sex: Female : 1995 Arrival Date: 06/19/2022 Time: 06:19 Bed 13 Private MD: Diagnosis: diabetic ketoacidosis;Nausea with vomiting, unspecified Presentation: 06/19 06:25 Chief complaint: Patient states: C/O Hyperglycemia with nausea and vomiting x 2 pf1 episodes,onset 1 hour ago. Patient stated glucometer was reading high and is currently out of her Novolog and Lantus prescriptions as of yesterday. 06:25 Coronavirus screen: Client denies travel out of the [place] in the last 14 days. Client pf1 presents with at least one sign or symptom that may indicate coronavirus-19. Ebola Screen: No symptoms or risks identified at this time. Initial Sepsis Screen: Does the patient meet any 2 criteria? No. Patient's initial sepsis screen is negative. Does the patient have a suspected source of infection? No. Patient's initial sepsis screen is negative. Risk Assessment: Do you want to hurt yourself or someone else? Patient reports no desire to harm self or others. Onset of symptoms was June 19, 2022. 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 - Social history:: Smoking status: Patient/guardian denies using. Screenin:55 [facility] ED Fall Risk Assessment (Adult) History of falling in the last 3 months, pf1 including since admission No falls in past 3 months (0 pts) Confusion or Disorientation No (0 pts) Intoxicated or Sedated No (0 pts) Impaired Gait No (0 pts) Mobility Assist Device Used No (0 pt) Altered Elimination No (0 pt) Score/Fall Risk Level 0 - 2 = Low Risk Oriented to surroundings, Maintained a safe environment, Educated pt \T\ family on fall prevention, incl call for assistance when getting out of bed, Assessed \T\ reinforced patient's understanding of fall precautions, Provided non-skid footwear, Hourly rounding (assess needs \T\ fall precautionary measures) done, Used ambulatory aids as needed (educated on \T\ assisted with), Used gait belt as appropriate. 06:55 Abuse screen: Denies threats or abuse. Nutritional screening: No deficits noted. pf1 Tuberculosis screening: No symptoms or risk factors identified. Assessment: 06:25 General: Appears comfortable, well groomed, well developed, Behavior is calm, pf1 cooperative, appropriate for age, quiet. 06:25 Pain: Denies pain. Neuro: Level of Consciousness is awake, alert, obeys commands, pf1 Oriented to person, place, time, situation. Cardiovascular: No deficits noted. Heart tones S1 S2 Capillary refill < 3 seconds. Respiratory: No deficits noted. Airway is patent Respiratory effort is even, unlabored, Respiratory pattern is regular, symmetrical. GI: Reports nausea, vomiting, with elevated blood sugar. EENT: No deficits noted. No signs and/or symptoms were reported regarding the EENT system. Derm: No deficits noted. No signs and/or symptoms reported regarding the dermatologic system. 06:55 General: see triage assessment. pf1 07:16 Reassessment: Patient appears in no apparent distress at this time. Patient and/or db family updated on plan of care and expected duration. Pain level reassessed. Patient is alert, oriented x 3, equal unlabored respirations, skin warm/dry/pink. Complains of nausea and vomiting prior to zofran medication administration. General: Appears in no apparent distress. comfortable, Behavior is calm, cooperative, appropriate for age, quiet. Pain: Denies pain. Neuro: No deficits noted. Level of Consciousness is awake, alert, obeys commands, Oriented to person, place, time, situation, Appropriate for age. GI: Abdomen is flat, non-distended, Pt is actively vomiting Reports nausea, vomiting. 08:19 Reassessment: Patient and/or family updated on plan of care and expected duration. Pain db level reassessed. Patient is alert, oriented x 3, equal unlabored respirations, skin warm/dry/pink. patient reports is still vomiting. 09:00 Reassessment: Patient appears in no apparent distress at this time. Patient and/or db family updated on plan of care and expected duration. Pain level reassessed. complaining of chest pain burning sensation in middle of chest after vomiting. notified provider. repeat EKG done. 09:35 Reassessment: Patient appears in no apparent distress at this time. Patient is alert, db oriented x 3, equal unlabored respirations, skin warm/dry/pink. patient is resting. sleeping Patient states feeling better. Patient states symptoms have improved. Vital Signs: 06:25 BP 136 / 83; Pulse 99; Resp 16; Temp 98.4; Pulse Ox 100% ; Weight 58.97 kg; Height 5 ll1 ft. 9 in. (175.26 cm); Pain 0/10; 07:16 BP 135 / 86; Pulse 99; Resp 18; Pulse Ox 99% on R/A; Pain 0/10; db 09:00 BP 126 / 74; Pulse 106; Resp 20; Pulse Ox 100% ; Pain 8/10; db 09:36 BP 120 / 70; Pulse 107; Resp 18; Pulse Ox 99% on R/A; db 06:25 Body Mass Index 19.20 (58.97 kg, 175.26 cm) ll1 ED Course: 06:19 Patient arrived in ED. jj6 06:28 Na Nation MD is Attending Physician. sd2 06:37 Eliane guadarrama, RN is Primary Nurse. pf1 06:40 Triage completed. pf1 06:50 No provider procedures requiring assistance completed. Missed attempt(s): 20 gauge in pf1 left antecubital area. 06:55 Urine --Ancillary (enter results) Sent. wm 07:00 ABG: Venous blood gas Sent. ll1 07:03 SARS-COV-2 Antigen Rapid Sent. rv1 07:03 Urine Microscopic Only Sent. rv1 07:03 Patient has correct armband on for positive identification. Placed in gown. Bed in low pf1 position. Call light in reach. 07:04 CBC with Diff Sent. rv1 07:04 CMP Sent. rv1 07:04 Magnesium Sent. rv1 07:04 Troponin High Sensitivity Sent. rv1 07:05 Attending Physician role handed off by Na Nation MD jr11 07:05 Rodriguez Jon MD is Attending Physician. jr11 07:05 Missed attempt(s): 22 gauge in left hand. Bleeding controlled, band aid applied, ll1 catheter tip intact. 07:12 Inserted saline lock: 22 gauge in right hand, using aseptic technique. Blood collected. db 07:57 Farzad Galvez MD is Hospitalizing Provider. jr11 09:14 Inserted saline lock: 20 gauge in right forearm, using aseptic technique. db 09:14 called to give report and floor states nurse is unable to take report at this time. db 09:35 Report given to VENICE Montemayor in ICU. patient going to room 7. Client placed on db continuous cardiac and pulse oximetry monitoring. NIBP monitoring applied. Lights dimmed. Warm blanket given. 10:20 Patient admitted, IV remains in place. db 10:21 Arm band placed on right wrist. Patient placed in an exam room. db Administered Medications: 07:15 Drug: NS 0.9% 2000 ml Route: IV; Rate: 1 bolus; Site: right hand; db 09:38 Follow up: Response: No adverse reaction; IV Status: Completed infusion db 07:15 Drug: Zofran (Ondansetron) 4 mg Route: IVP; Site: right hand; db 08:29 Follow up: Response: No adverse reaction; Nausea unchanged db 08:25 Drug: Reglan (metoCLOPramide) 10 mg Route: IVP; Site: right hand; db 09:11 Follow up: Response: No adverse reaction; Nausea is decreased db 08:50 Drug: Insulin Drip - (Insulin Regular Human 100 units, NS 0.9% 100 ml) {Co-Signature: celina ll1 (Raissa Lopez RN).} Route: IV; Rate: calculated rate; Site: right hand; 09:34 Follow up: Response: No adverse reaction; IV Status: Infusion continued upon admission db Medication: 09:36 VIS not applicable for this client. db Outcome: 07:58 Decision to Hospitalize by Provider. jr11 09:56 Patient left the ED. eb 10:19 Admitted to ICU accompanied by nurse, via stretcher, on monitor, with chart. db 10:19 Condition: stable 10:20 Instructed on the need for admit. db Signatures: Mary Carmen Estrella Lynsay, RN RN ll1 Treasure Moore Jennifer jj6 Rodriguez Jon MD MD jr11 Na Nation MD MD sd2 Reny Mccauley RN RN db Eliane guadarrama RN RN pf1 Stephanie Massey 1 Raissa Lopez RN ll1 Corrections: (The following items were deleted from the chart) 06:58 06:25 BP 136 / 83; Pulse 9bpm; Resp 16bpm; Pulse Ox 100%; Temp 98.4F; 58.97 kg; Height ll1 5 ft. 9 in.; BMI: 19.2; Pain 0/10; pf1
--- NOTE | 2022-06-19 07:59 | EDPHYS ---
Physician Documentation [facility] Name: Sri Rosales Age: 26 yrs Sex: Female : 1995 Arrival Date: 06/19/2022 Time: 06:19 Bed 13 Private MD: ED Physician Rodriguez Jon HPI: 06/19 06:36 This 26 yrs old Female presents to ER via Unassigned with complaints of sd2 Nausea/Vomiting, Type I Diabetic, High Blood Sugar. 06:36 26 yo F presents with CC of hyperglycemia with nausea/vomiting. Pt is type I diabetic sd2 and ran out of her insulin yesterday. She is normally on Novolog sliding scale 3x daily and Lantus 27 units nightly. She ran out of both yesterday and requested a refill this morning that she has not yet received. Her last dose of Novolog was at lunchtime yesterday. Denies fever, recent illness, abdominal pain or diarrhea. Denies any chance of .. 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 - Social history:: Smoking status: Patient/guardian denies using. ROS: 06:36 Constitutional: Negative for fever, chills, and weight loss, Eyes: Negative for injury, sd2 pain, redness, and discharge, Cardiovascular: Negative for chest pain, palpitations, and edema, Respiratory: Negative for shortness of breath, cough, wheezing. 06:36 : Negative for dysuria, urinary frequency, hesitancy, urgency and hematuria. MS/Extremity: Negative for injury and deformity, Skin: Negative for injury, rash, and discoloration, Neuro: Negative for headache, numbness and tingling. 06:36 Abdomen/GI: Positive for nausea, vomiting, Negative for abdominal pain, diarrhea. Exam: 06:36 Constitutional: This is a well developed, well nourished patient who is awake, alert, sd2 and in no acute distress. Head/Face: Normocephalic, atraumatic. Eyes: EOMI, normal conjunctiva bilaterally Chest/axilla: Normal chest wall appearance and motion. Nontender with no deformity. Cardiovascular: Regular rate and rhythm with a normal S1 and S2. No gallops, murmurs, or rubs. 2+ distal pulses. Respiratory: Lungs have equal breath sounds bilaterally, clear to auscultation and percussion. No rales, rhonchi or wheezes noted. No increased work of breathing, no retractions or nasal flaring. Abdomen/GI: Soft, non-tender, with normal bowel sounds. No guarding or rebound. No evidence of tenderness throughout. Skin: Warm, dry with normal turgor. Normal color with no rashes, no lesions, and no evidence of cellulitis. MS/ Extremity: Pulses equal, no cyanosis. Neurovascular intact. Full, normal range of motion. Ambulatory without difficulty. Psych: Awake, alert, with orientation to person, place and time. Behavior, mood, and affect are within normal limits. Vital Signs: 06:25 BP 136 / 83; Pulse 99; Resp 16; Temp 98.4; Pulse Ox 100% ; Weight 58.97 kg; Height 5 ll1 ft. 9 in. (175.26 cm); Pain 0/10; 07:16 BP 135 / 86; Pulse 99; Resp 18; Pulse Ox 99% on R/A; Pain 0/10; db 09:00 BP 126 / 74; Pulse 106; Resp 20; Pulse Ox 100% ; Pain 8/10; db 09:36 BP 120 / 70; Pulse 107; Resp 18; Pulse Ox 99% on R/A; db 06:25 Body Mass Index 19.20 (58.97 kg, 175.26 cm) ll1 MDM: 06:28 Patient medically screened. sd2 06:36 Differential diagnosis: DKA, electrolyte abnormality, dehydration, gastroenteritis, sd2 pancreatitis among others. Data reviewed: vital signs, nurses notes. 07:03 Transition of care: After a detail discussion of the patient's case, care is sd2 transferred to Rodriguez Jon MD. 07:20 ED course: EKG int by me NSR HR 97, nl intervals, no STEMI. jr11 07:55 ED course: Lenny accepted to ICU, insulin protocol printed, insulin drip order started .jr11 06/19 06:35 Order name: CBC with Diff; Complete Time: 07:28 sd2 06/19 06:35 Order name: CMP; Complete Time: 07:37 sd2 06/19 06:35 Order name: Magnesium; Complete Time: 07:37 sd2 06/19 06:35 Order name: Troponin High Sensitivity; Complete Time: 07:37 sd2 06/19 06:35 Order name: Ketone, Serum; Complete Time: 07:37 sd2 06/19 06:35 Order name: Urine Microscopic Only; Complete Time: 07:06 sd2 06/19 06:35 Order name: ABG: Venous blood gas; Complete Time: 07:28 sd2 06/19 06:50 Order name: Urine --Ancillary (enter results); Complete Time: 07:37 wm 06/19 06:51 Order name: Urine Dipstick-Ancillary; Complete Time: 07:06 EDMS 06/19 06:56 Order name: SARS-COV-2 Antigen Rapid; Complete Time: 07:37 wm 06/19 07:08 Order name: Glucose, Ancillary Testing; Complete Time: 07:28 EDMS 06/19 08:51 Order name: Glucose, Ancillary Testing EDMS 06/19 06:35 Order name: EKG - Nurse/Tech; Complete Time: 07:19 sd2 06/19 06:35 Order name: Urine Dipstick-Ancillary (obtain specimen); Complete Time: 06:55 sd2 06/19 06:35 Order name: Urine Test (obtain specimen); Complete Time: 06:55 sd2 Administered Medications: 07:15 Drug: NS 0.9% 2000 ml Route: IV; Rate: 1 bolus; Site: right hand; db 09:38 Follow up: Response: No adverse reaction; IV Status: Completed infusion db 07:15 Drug: Zofran (Ondansetron) 4 mg Route: IVP; Site: right hand; db 08:29 Follow up: Response: No adverse reaction; Nausea unchanged db 08:25 Drug: Reglan (metoCLOPramide) 10 mg Route: IVP; Site: right hand; db 09:11 Follow up: Response: No adverse reaction; Nausea is decreased db 08:50 Drug: Insulin Drip - (Insulin Regular Human 100 units, NS 0.9% 100 ml) {Co-Signature: celina ll1 (Raissa Lopez RN).} Route: IV; Rate: calculated rate; Site: right hand; 09:34 Follow up: Response: No adverse reaction; IV Status: Infusion continued upon admission db Disposition Summary: 06/19/22 07:58 Hospitalization Ordered Hospitalization Status: Inpatient Admission [facility] Provider: Farzad Galvez [facility] Location: Intensive Care Unit [facility] Condition: Fair [facility] Problem: an acute exacerbation jr11 Symptoms: have improved [facility] Bed/Room Type: Standard [facility] Room Assignment: 7-(06/19/22 08:59) Diagnosis - diabetic ketoacidosis jr11 - Nausea with vomiting, unspecified [facility] Forms: - Medication Reconciliation Form jr11 - SBAR form [facility] Critical care time excluding procedures: 07:20 Critical care time: Bedside Care: 15 minutes, Consultation: 10 minutes, Family [facility] Intervention: 6 minutes. Total time: 31 minutes Signatures: Dispatcher [employer] EDAZ Mary Carmen Estrella Rodriguez Jon MD MD [facility] Na Nation MD MD sd2 Reny Mccauley RN RN db Eliane guadarrama RN RN pf1 Raissa Lopez RN ll1 Corrections: (The following items were deleted from the chart) 07:37 06:43 GLUCOSE+C.LAB.BRZ ordered. EDAZ EDMS 08:59 07:[address]
[2022-06-19] MEDS ORDERED: INSULIN -REGULAR HUMAN 100 UNIT in NA CHLORIDE 0.9% 100 ML IV ONE (08:00)
[2022-06-19] MEDS ORDERED: METOCLOPRAMIDE 10 MG/2mL INJ ONE (08:24)
[2022-06-19] MEDS ORDERED: NA CHLORIDE 0.9% 50 ML IV ONE (08:24)
--- NOTE | 2022-06-19 08:35 | P.HP ---
Certification for Inpatient Patient admitted to: Inpatient With expected LOS: >2 Midnights Patient will require the following post-hospital care: None Practitioner: I am a practitioner with admitting privileges, knowledge of patient current condition, hospital course, and medical plan of care. Services: Services provided to patient in accordance with Admission requirements found in Title 42 Section 412.3 of the Code of Federal Regulations Patient History Date of Service: 06/19/22 Reason for admission: Diabetic Ketoacidosis History of Present Illness: Ms. Sri Rosales is a 26 year old female who has a past medical history of type I diabetes mellitus who presents to the [facility] Emergency Department for generalized weakness, nausea, and vomiting. She reports that, over the last 24 hours, she has been experiencing progressively worsening nausea and vomiting. She reports that she took her blood glucose level this morning, and the level returned "very high." She reports that she ran out of insulin yesterday and has been unable to refill her prescriptions for insulin. She denies any alleviating factors. She states that she has also had some post-emesis chest pain. She describes this as burning and grades it an 8.5/10 in severity. On review of systems, she denies any fevers, chills, headaches, dizziness, syncope, palpitations, shortness of breath, wheezing, cough, diarrhea, constipation, hematochezia, melena, dysuria, hematuria, myalgia, or any other symptoms. She presented to the Emergency Department for further evaluation. Upon presentation, her vital signs were notable for a heart rate of 99 bpm. Her laboratory studies were notable for a creatinine of 1.21, a glucose of 771, and a pH of 7.22. Urinalysis revealed 2+ glucose, 4+ ketones, and trace blood. EKG was without STEMI criteria. In the Emergency Department, she was given 2 L normal saline, metoclopramide, ondansetron, and an insulin drip. She was admitted to the General Internal Medicine service for further evaluation. Allergies No Known Allergies Allergy (Unverified 06/19/22 07:53) Home medications list reviewed: Yes Home Medications: Insulin Aspart Protam & Aspart [Novolog Mix 70-30 Vial] See Protocol SQ ACHS 06/19/22 Insulin Glargine,Hum.rec.anlog [Lantus] 27 units SQ BEDTIME 06/19/22 Sertraline [Zoloft] 150 mg PO DAILY 06/19/22 - Past Medical/Surgical History Diabetic: Yes -: Type I Diabetes Mellitus Past Surgical History: Patient denies surgical history - Family History Family History: Reviewed- Non-Contributory - Social History Smoking Status: Never smoker Alcohol use: No CD- Drugs: No Review of Systems General: Sweats Eyes: Unremarkable ENT: Unremarkable Respiratory: Unremarkable Cardiovascular: Unremarkable Gastrointestinal: Nausea, Vomiting, Abdominal Pain Genitourinary: Unremarkable Musculoskeletal: Unremarkable Integumentary: Unremarkable Neurological: Unremarkable Lymphatics: Unremarkable Physical Examination - Vital Signs Temperature: 99.4 F Blood Pressure: 135/86 Pulse: 99 Respirations: 18 Pulse Ox (%): 97 (room air) - Physical Exam General: Alert, Oriented x3, Mild distress HEENT: PERRLA, Mucous membr. moist/pink, EOMI, Sclerae nonicteric Neck: Supple, JVD not distended Respiratory: Clear to auscultation bilaterally, Normal air movement Cardiovascular: No edema, Regular rate/rhythm, Normal S1 S2, No gallops, No rubs, No murmurs Gastrointestinal: Normal bowel sounds, Soft and benign, Non-distended, No tenderness, No rebound, No guarding Musculoskeletal: No clubbing Integumentary: No rashes Neurological: Normal speech, Cranial nerves 3-12 intact, Normal affect - Studies Laboratory Data (last 24 hrs) 06/19/22 07:12: Glucose Cancelled 06/19/22 06:50: Sodium 133 L, Potassium 5.0, BUN 31 H, Creatinine 1.21 H, Glucose 771 H*, Magnesium 2.3, Total Bilirubin 0.6, AST 38 H, ALT 41, Alkaline Phosphatase 148 H 06/19/22 06:50: WBC 7.80, Hgb 13.1, Hct 41.3, Plt Count 223 Assessment and Plan - Plan # Diabetic Ketoacidosis in Type I Diabetes Mellitus secondary to Medication Noncompliance # Hyponatremia secondary to Hyperglycemia - Evaluation thus far: - Presenting glucose = 771 - Potassium = 5.0 - ABG = pH 7.22, PCO2 = 39.8 - Bicarbonate = 18 AGAP = 21 Ketones = large Hgb A1c = 11.8 % - Management plan: - Fluids: - S/P IV Normal Saline 2 L bolus in ED, started at 150 mL/hr - - Once glucose between 150 - 250, switch fluids to D5W + Normal Saline - q4hr BMP - Potassium replacement: - Serum K 5.0 -> no replacement - Insulin: - Insulin regular drip at 0.1 unit/kg/hr - Once glucose between 150 - 250, reduce rate to 0.02 - 0.05 unit/kg/hr - Bicarbonate: - pH > 6.9 -> no replacement # KDIGO Stage I Acute Kidney Injury likely secondary to above - Creatinine = 1.21 (creatinine was 0.68 on 11/25/2019) - Urinalysis = 2+ glucose, 4+ ketones, trace-blood - IV fluids as mentioned above - Monitor creatinine and urine output - If worsening, obtain renal ultrasound - Renally dose medications Farzad Galvez M.D. Discharge Plan: Home Plan to discharge in: Greater than 2 days - Advance Directives Does patient have a Living Will: No Does patient have a Durable POA for Healthcare: No - Code Status/Comfort Care Code Status: Full Code
[2022-06-19] MEDS: NA CHLORIDE 0.9% 1,000 ML IV SCH ×2 (09:00→10:35)
[2022-06-19] MEDS: ENOXAPARIN 40 MG/0.4 ML SQ SCH (10:26)
[2022-06-19] MEDS ORDERED: NA CHLORIDE 0.9% 1,000 ML ONE (10:36)
[2022-06-19 11:37] LABS: Magnesium 2.2 mg/dL (1.6-2.4); Potassium 4.5 mmol/L (3.5-5.1)
[2022-06-19] MEDS ORDERED: Ringers Lactate 1,000 ML IV SCH ×2 (12:53→21:00)
[2022-06-19] MEDS ORDERED: PNEUMOCOCCAL VACCINE 0.5 ML IMVAC ONE (13:00)
[2022-06-19] MEDS ORDERED: INFLUENZA VACCINE (for 6+ mo) 0.5 ML DOSE IMVAC ONE (13:00)
[2022-06-19] MEDS: D5LR 1,000 ML IV SCH ×3 (14:18→21:46)
[2022-06-19 15:17] LABS: Phosphorus 3.5 mg/dL (2.5-4.9); Potassium 4.1 mmol/L (3.5-5.1)
[2022-06-19 15:28] VITALS: BMI 18.4
[2022-06-19 18:58] LABS: Magnesium 2.1 mg/dL (1.6-2.4); Phosphorus 3.6 mg/dL (2.5-4.9); Potassium 4.2 mmol/L (3.5-5.1)
[2022-06-19] MEDS ORDERED: GLUCAGON 1 MG/VIAL IM PRN (20:44)
[2022-06-19] MEDS ORDERED: D50W 25 GM/50 ML SYRINGE IV PRN (20:44)
[2022-06-19] MEDS ORDERED: INSULIN -REGULAR HUMAN 100 UNIT in NA CHLORIDE 0.9% 99 ML IV SCH (20:45)
[2022-06-19] MEDS ORDERED: D10W 125 ML IV PRN (20:53)
[2022-06-19 21:08] VITALS: O2SAT 100
[2022-06-19 23:21] LABS: BUN Blood Urea Nitrogen 17 mg/dL (7-18); Bicarbonate 25 mmol/L (21-32); Glomerular Filtration Rate 80 ml/min (=/>90); Glucose Level 179 mg/dL (74-106); Magnesium 1.8 mg/dL (1.6-2.4); Phosphorus 2.3 mg/dL (2.5-4.9); Potassium 3.9 mmol/L (3.5-5.1); Sodium Level 140 mmol/L (136-145)
[2022-06-20] MEDS ORDERED: INSULIN GLARGINE 100 UNIT/ML SQ ONE
[2022-06-20] MEDS ORDERED: D50W 25 GM/50 ML SYRINGE IV PRN (00:03)
[2022-06-20] MEDS ORDERED: MAGNESIUM SULFATE 1 gm IVPB 1 GM/100 ML BAG IV ONE (00:25)
[2022-06-20] MEDS ORDERED: POTASSIUM CL SA 10 MEQ TAB PO ONE (00:25)
[2022-06-20] MEDS: POTASS/SODIUM PHOSPHATE 1 PKT POWD.PACK PO SCH ×3 (00:47→03:06)
[2022-06-20 05:25] LABS: Absolute Lymphocytes (CBC) 2.7 K/uL (0.7-4.9); Hematocrit 30.3 % (36.0-45.0); Lymphocytes % 36.1 % (15.3-44.8); MCV 86.6 fL (80-100); MPV 7.1 fL (7.6-11.3); RBC Red Blood Cell Count 3.49 M/uL (3.86-4.86)
[2022-06-20 05:39] LABS: BUN Blood Urea Nitrogen 14 mg/dL (7-18); Bicarbonate 26 mmol/L (21-32); Glomerular Filtration Rate 85 ml/min (=/>90); Glucose Level 197 mg/dL (74-106); Magnesium 2.1 mg/dL (1.6-2.4); Potassium 4.2 mmol/L (3.5-5.1); Sodium Level 139 mmol/L (136-145)
[2022-06-20] MEDS: INSULIN -REGULAR HUMAN 50 UNIT/0.5 ML ML SQ SCH ×2 (08:27→11:30)
[2022-06-20] MEDS: ENOXAPARIN 40 MG/0.4 ML SQ SCH (08:27)
[2022-06-20] MEDS ORDERED: INSULIN GLARGINE 100 UNIT/ML SQ SCH (09:00)
[2022-06-20] MEDS ORDERED: PNEUMOCOCCAL VACCINE 0.5 ML IMVAC ONE (09:00)
[2022-06-20] MEDS ORDERED: INFLUENZA VACCINE (for 6+ mo) 0.5 ML DOSE IMVAC ONE (09:00)
[2022-06-20 12:33] VITALS: BP 117/82
--- NOTE | 2022-06-20 13:53 | P.DS ---
Admission Date: 06/19/22 Discharge Date: 06/20/22 Disposition: ROUTINE DISCHARGE Discharge Condition: GOOD Reason for Admission: Diabetic Ketoacidosis Hospital Course: DIAGNOSES: # Diabetic Ketoacidosis in Type I Diabetes Mellitus secondary to Medication Noncompliance # KDIGO Stage I Acute Kidney Injury likely secondary to above # Hyponatremia secondary to Hyperglycemia HOSPITAL COURSE: Ms. Sri Rosales is a 26 year old female who has a past medical history of type I diabetes mellitus who who was admitted to the [facility] on 06/19/2022 for generalized weakness, nausea, and vomiting. She was admitted the Medicine service. She was treated with insulin and IV fluids per the DKA protocol and she did well. Over the course of her hospitalization, her glucose levels and anion gap normalized. Her symptoms completely resolved and she stated that she was ready to be discharged home. The importance of medication compliance was emphasized and she verbalized understanding. She was informed that her hemoglobin A1c was elevated, suggesting poor control of her diabetes. She agreed to schedule follow-up with her PCP for further evaluation and insulin dose adjustments. She was advised to schedule annual dilated ophthalmologic examinations, annual urine microalbumin, and diabetic foot checks with her PCP at her scheduled appointments. She verbalized understanding. On 06/20/2022, she was seen on rounds and deemed medically stable for discharge. She was discharged with instructions to schedule follow-up appointments with her PCP and with her Research Laboratory Manager (Dr. Erwin). She was provided prescriptions for insulin glargine and insulin aspart. She was advised to maintain a blood glucose log and bring this to her doctor appointments. She and her father were given the opportunity to ask questions and reported no further questions. Furthermore, all questions were answered to the best of my ability. Today, I personally spent 25 minutes on her case, of which greater than 50% of the time was spent in patient education, counseling, and coordination of care as described above. - Physical Exam General: Alert, Oriented x3, No distress HEENT: PERRLA, Mucous membr. moist/pink, EOMI, Sclerae nonicteric Neck: Supple, JVD not distended Respiratory: Clear to auscultation bilaterally, Normal air movement Cardiovascular: No edema, Regular rate/rhythm, Normal S1 S2, No gallops, No rubs, No murmurs Gastrointestinal: Normal bowel sounds, Soft and benign, Non-distended, No tenderness, No rebound, No guarding Musculoskeletal: No clubbing Integumentary: No rashes Neurological: Normal speech, Cranial nerves 3-12 intact, Normal affect Vital Signs/Physical Exam: Temp Pulse Resp BP Pulse Ox 98.2 F 83 14 117/82 99 06/20/22 08:00 06/20/22 12:00 06/20/22 12:00 06/20/22 12:00 06/20/22 08:00 Laboratory Data at Discharge: WBC 7.60 K/uL (4.3-10.9) 06/20/22 05:01 Hgb 10.2 g/dL (12.0-15.0) L D 06/20/22 05:01 Hct 30.3 % (36.0-45.0) L 06/20/22 05:01 Plt Count 209 K/uL (152-406) 06/20/22 05:01 Sodium 139 mmol/L (136-145) 06/20/22 05:01 Potassium 4.2 mmol/L (3.5-5.1) 06/20/22 05:01 BUN 14 mg/dL (7-18) 06/20/22 05:01 Creatinine 0.94 mg/dL (0.55-1.02) 06/20/22 05:01 Glucose 197 mg/dL (74-106) H 06/20/22 05:01 Phosphorus 3.0 mg/dL (2.5-4.9) 06/20/22 05:01 Magnesium 2.1 mg/dL (1.6-2.4) 06/20/22 05:01 Total Bilirubin 0.6 mg/dL (0.2-1.0) 06/19/22 06:50 AST 38 U/L (15-37) H 06/19/22 06:50 ALT 41 U/L (13-56) 06/19/22 06:50 Alkaline Phosphatase 148 U/L (45-117) H 06/19/22 06:50 Home Medications: Sertraline [Zoloft*] 150 mg PO DAILY 06/19/22 Insulin Aspart [Insulin Aspart Flexpen] See Rx Instructions .ROUTE .COMPLEX #5 ml 06/20/22 Insulin Glargine,Hum.rec.anlog [Lantus Solostar] 20 unit SQ DAILY #10 ml 06/20/22 New Medications: Insulin Aspart [Insulin Aspart Flexpen] See Rx Instructions .ROUTE .COMPLEX #5 ml Insulin Glargine,Hum.rec.anlog [Lantus Solostar] 20 unit SQ DAILY #10 ml Physician Discharge Instructions: 1. Please call and schedule a follow-up appointment with your PCP (Dr. Erwin) in 3-5 days - Please monitor your sugar levels at home and bring the log to your PCP at your next appointment Diet: ADA Activity: Ad casimiro Followup: Edward Erwin MD [Primary Care Provider] - Time spent managing pt's care (in minutes): 25
[2022-06-20 15:06] VITALS: TEMP 97.4
[2022-06-20] MEDS ORDERED: INSULIN LISPRO 100 UNIT/1 ML SQ SCH (16:30)
--- NOTE | 2022-06-21 17:28 | EKG ---
Test Date: 2022-06-19 Test Time: 08:51:59 Cat Cracker Operator: LML MEASUREMENT RESULTS: Intervals: Rate: 105 ME: 142 QRSD: 88 QT: 352 QTc: 465 [place]: P: 66 [place]: 142 QRS: 79 T: 41 INTERPRETIVE STATEMENTS: Sinus tachycardia Right atrial enlargement Borderline ECG Compared to ECG 06/19/2022 07:16:23 Sinus rhythm no longer present Prolonged QT interval no longer present Electronically Signed On 06-21-22 17:25:24 BALING MACHINE TENDER by Tapan Herman
--- NOTE | 2022-06-21 17:28 | EKG ---
Test Date: 2022-06-19 Test Time: 07:16:23 Mechanical Engineering Lecturer: TYSON MEASUREMENT RESULTS: Intervals: Rate: 97 [place]: 142 QRSD: 82 QT: 384 QTc: 487 [place]: P: 66 [place]: 142 QRS: 80 T: 29 INTERPRETIVE STATEMENTS: Normal sinus rhythm Right atrial enlargement Prolonged QT Abnormal ECG No previous ECG available for comparison Electronically Signed On 06-21-22 17:25:31 KILN OPERATOR HELPER by Tapan Herman
== END 2022-06-20 14:45 | disposition home or self-care (01) ==
LOC: ER 06:17 → INTOOBSV 08:31 → ERHOLD 08:31 → 3RD-ICU 09:36
PROVIDERS: ADMIT Internal Medicine; ATTEND Internal Medicine
DX: E10.10 Type 1 diabetes mellitus with ketoacidosis without coma (principal); E87.1 Hypo-osmolality and hyponatremia; E10.65 Type 1 diabetes mellitus with hyperglycemia; N17.9 Acute kidney failure, unspecified; Z23 Encounter for immunization; Z91.14 Patient's other noncompliance with medication regimen; Z20.822 Contact with and (suspected) exposure to COVID-19
CPT/HCPCS: 96365; 96361; 93005 ×2; 85025 ×2; 80048 ×5; 36415; 82010 ×3; 83735 ×6; 81025; 84100 ×5; 82947 ×18; 83036; 84484; 80053; 90471 ×2; 90732; 82805; 96375; 99285; 87811; J2765; J1815 ×2; J1650 ×2; J3475; J7121; J7030 ×2; J2405; G0378 ×3; 81003; 81015